=== PATIENT | female | born 1945 | race Asian ===

== ENCOUNTER 2016-05-24 11:48 | Inpatient (IN) | payer OTHER, MEDICARE ==
--- NOTE | ~2016-05-24 | US139 ---
[facility] A Service of [facility] & [facility] RADIOLOGY TEXT RESULTS PATIENT: NEHEMIAH BOWENS LOCATION: [address]- : [birth year] UNIT #: [id number] AGE: [address]: Shon Prather MD SEX: F ORDER DR: [id number] [facility] [address] [place], [place] [address] [id number] MR#: [id number] Acc #: [id number] NAME: NEHEMIAH BOWENS. : 1945 SEX: F STUDY DATE/TIME: 06/05/2016 19:50 UNIT: [facility] ROOM: [facility] STUDY DESCRIPTION: US UE Veins Complete Jeffrey Stdy Attending Physician: Shon Prather Jr., M.D. Ordering Physician: Camilo Stevneson M.D. Primary Care Physician: Jared Johnson D.O. MEDICAL IMAGING REPORT This report is preliminary unless electronic signature is present EXAM Bilateral upper extremity venous Doppler HISTORY 70-year-old female with bilateral upper extremity edema x1 week. FINDINGS 2-D and Doppler evaluation of the upper extremities demonstrates normal flow and compressibility of the major veins in both upper extremities. The visualized cephalic and basilic veins are patent on the left but a portion of the veins cannot be visualized due to bandaging material. A central line is seen within the left internal jugular vein. IMPRESSION No sonographic evidence of DVT or SVT within either upper extremities. Please note a portion of the superficial veins on the left cannot be visualized due to bandaging material. Dictated by... Akin Villarreal M.D. THIS IS AN ELECTRONICALLY VERIFIED REPORT Akin Villarreal M.D. at 06/06/2016 8:43 PM Juan TD: 06/06/2016 10:21 JOB #: [id number] MEDICAL IMAGING REPORT COPY
--- NOTE | ~2016-05-24 | CR72 ---
[facility] A Service of [facility] & [facility] RADIOLOGY TEXT RESULTS PATIENT: NEHEMIAH BOWENS LOCATION: [address] : [birth year] UNIT #: [id number] AGE: [address]: Shon Prather MD SEX: F ORDER DR: [id number] [facility] [address] [place], [place] [address] [id number] I MR#: [id number] Acc #: [id number] NAME: NEHEMIAH BOWENS. : 1945 SEX: F STUDY DATE/TIME: 06/11/2016 2:29 UNIT: [facility] ROOM: [facility] STUDY DESCRIPTION: CR Chest Single View Portable Attending Physician: Shon Prather Jr., M.D. Ordering Physician: Judah Mackenzie Primary Care Physician: Jared Johnson D.O. MEDICAL IMAGING REPORT This report is preliminary unless electronic signature is present EXAM AP portable chest 06/11/2016. HISTORY Respiratory failure. Patient on ventilator. Follow up pulmonary status. TECHNIQUE AP portable chest x-ray. FINDINGS The exam shows no change since yesterday. Persistent dense infiltrate on the left posterior lung base behind the diaphragm. Mid and upper lungs clear. Endotracheal tube and left arm PICC in good position. Heart size normal. IMPRESSION Stable portable chest radiograph, unchanged since yesterday. Dictated by... Bartolo Murcia M.D. THIS IS AN ELECTRONICALLY VERIFIED REPORT Bartolo Murcia M.D. at 06/11/2016 9:43 PM Nura TD: 06/11/2016 12:42 JOB #: [id number] MEDICAL IMAGING REPORT Page 1 of 1 COPY
--- NOTE | ~2016-05-24 | CR72 ---
[facility] A Service of [facility] RADIOLOGY TEXT RESULTS PATIENT: NEHEMIAH BOWENS LOCATION: [place] [address]- : [birth year] UNIT #: [id number] AGE: [address]: Shon Prather MD SEX: F ORDER DR: [id number] [facility] [address] [place], [place] [address] [id number] I MR#: [id number] Acc #: [id number] NAME: NEHEMIAH BOWENS : 1945 SEX: F STUDY DATE/TIME: 05/29/2016 9:12 UNIT: [facility] ROOM: [facility] STUDY DESCRIPTION: CR Chest Single View Portable Attending Physician: Shon Prather Jr., M.D. Ordering Physician: Ed Lisandro Marquez M.D. Primary Care Physician: Jared Johnson D.O. MEDICAL IMAGING REPORT This report is preliminary unless electronic signature is present EXAM Portable chest INDICATIONS 70-year female with central line placement. COMPARISON With earlier today FINDINGS There is a new left IJ central venous catheter with tip in the region of the cavoatrial junction. Stable right IJ dialysis catheter. No pneumothorax. ET tube stable. Stable consolidation or atelectasis medial left base. IMPRESSION New left IJ central venous catheter with tip in the region of the cavoatrial junction. No evidence of pneumothorax. Dictated by... Mike Villarreal M.D. THIS IS AN ELECTRONICALLY VERIFIED REPORT Mike Villarreal M.D. at 05/29/2016 3:34 PM ARS/to TD: 05/29/2016 12:30 JOB #: [id number] MEDICAL IMAGING REPORT COPY
--- NOTE | ~2016-05-24 | CO ---
Unit #: [id number] #: [id number] Patient: NEHEMIAH BOWENS [id number] [address] [place], [place] [address] [id number] I MR#: [id number] NAME: NEHEMIAH BOWENS. ROOM: [facility] Age: 70 Sex: F Admission Date: 05/24/2016 : 1945 Attending Physician: Shon Prather Jr., M.D. Primary Care Physician: Jared Johnson D.O. Consultation Date: 06/17/2016 CONSULTATION REPORT REASON FOR CONSULTATION Antibiotic management in a patient with persistent fever. HISTORY OF PRESENT ILLNESS This is a 70-year-old female who is currently on the ventilator and unable to provide any medical history. The patient originally presented on 05/24/2016 with abdominal pain, found to have a ventral hernia, status post repair with lysis of adhesions. Subsequently, the patient developed some renal failure and had temporary dialysis. She also required a repeat CT scan as she was felt to be coming septic. The patient's CT scan was concerning for perforation. She was also found to have Klebsiella sepsis with pneumonia. The patient, on 05/28, underwent exploratory lap with evacuation of fecal peritonitis, removal of mesh, lysis of adhesions, development of a mucous fistula and a G-tube placement with closure. She went back to the OR on 06/11 for peritoneal cavity washout as well. She remains on the ventilator and she has also been trached since this admission. The patient now has had persistent fever and has remained on the ventilator with some elevated bilirubin and CT scan shows some fluid collection leading for IR to be drained and ID was asked to evaluate for antibiotic management. The patient originally was on Zosyn which collaborated the Klebsiella and has since been changed to Levaquin, Flagyl, Diflucan and IV vancomycin. The patient was recently seen by neurology secondary to hallucinations and mental status changes. She does appear to open her eyes to pain. PAST MEDICAL HISTORY Includes: 1. Colostomy reversal in 2016. 2. Colon perforation in the past. 3. Hypertension. 4. Hyperlipidemia. 5. Diabetes. 6. GERD. 7. Exploratory lap. 8. Colostomy. 9. Vein stripping. 10. Ventral hernia repair. ALLERGIES No known allergies. MEDICATIONS 1. Vancomycin. 2. Levaquin. Unit #: [id number] #: [id number] Patient: NEHEMIAH BOWENS 3. Diflucan. 4. Flagyl. For other medications, please refer to patient's MAR. The patient is not on any pressors. SOCIAL HISTORY The patient lives with others. She has no tobacco abuse or alcohol abuse or IV drug use, per the chart. REVIEW OF SYSTEMS Unable to obtain as patient is currently on the ventilator. PHYSICAL EXAMINATION VITAL SIGNS: Temperature is 101.2, with a T-max of 103.1, pulse is 103, blood pressure is 168/74 and respiratory rate is 16. GENERAL: This is a sedated female on the ventilator. She appears somewhat jaundiced but in no apparent distress. EYES: Pupils are sluggish. CARDIOVASCULAR: S1, S2 with tachycardia. PULMONARY: Diminished in the bases with no wheezes or rhonchi noted, on 40% FIO2. ABDOMEN: Somewhat firm with an abdominal incision with some dark draining fluid from the incision that appears to have some sutures in place. There is a mucous fistula without any drainage. There is a colostomy with goldish-brown stool. There is limited bowel sounds. EXTREMITIES: Trace edema. She has a new IJ line in place. DIAGNOSTIC STUDIES MICROBIOLOGY: 06/16 cath tip is currently pending. 06/16 abdominal fluid culture is pending. LABORATORY: Sputum culture 06/15 shows one yeast present and normal laila. 06/15 blood culture is currently negative. 06/13 blood cultures are negative. 06/09 sputum culture shows Klebsiella sensitive to Levaquin. 06/09 cath tip is negative. 06/06 urine culture is negative. 06/05 blood cultures are negative. 06/05 sputum culture is Klebsiella. 05/28 blood culture is Klebsiella. Surgical path from 05/29 shows perforation with abscess formation. Please see full report for complete details. IMPRESSION This is a 70-year-old female who was originally admitted to the hospital on 05/24/2016 with abdominal pain, status post ventral hernia repair. Since then, the patient has had multiple exploratory procedures secondary Unit #: [id number] #: [id number] Patient: NEHEMIAH BOWENS to fecal peritonitis with mesh removal, lysis of adhesions, development of mucous fistula and washout. The patient now has a CT scan from 06/15 that shows edema and two fluid collections in the mid abdomen concerning for seroma or abscess and IR is currently waiting to drain these. This, coupled with fever and tachycardia, is concerning for infection. However, her white blood cell count is normal at 7.2. Would like to broadly cover patient for abdominal sepsis including Tygacil. Will DC the IV vancomycin, continue the Flagyl, Diflucan and Levaquin. The patient recently had line changed and less concerning for pneumonia or UTI but is covered for her past pneumonia with Levaquin. Will continue to follow Interventional Radiology findings as well as culture results recently of blood and abdominal fluid to help guide antibiotic therapy. Will check a repeat amylase and lipase level and discuss with Dr. Segundo Oliva. This case is continually being followed by the surgery team as well. Thank you for allowing us to participate in the care of this patient. Further recommendations to follow pending patient's clinical course. Dictated by... Brittany Singletary A.P.R.N. for Moisés Mcgarry/yosvany TD: 06/17/2016 09:34 JOB #: [id number] CONSULTATION REPORT Page 1 of 1 X X CONSULTATION REPORT
--- NOTE | ~2016-05-24 | OR ---
Unit #: [id number] #: [id number] Patient: NEHEMIAH BOWENS [id number] [address] [place], [place] [address] [id number] I MR#: [id number] NAME: NEHEMIAH BOWENS ROOM: [facility] Date of Procedure: 05/24/2016 Admission Date: 05/24/2016 Surgeon: Shon Prather Jr., M.D. : 1945 Attending Physician: Shon Prather Jr., M.D. Primary Care Physician: Jared Johnson D.O. OPERATIVE REPORT INDICATION FOR PROCEDURE The patient is a 70-year-old [place] female, who has had multiple surgical procedures, has developed an incarcerated hernia in the left lower quadrant abdominal wall area and was brought in this time for laparoscopic repair of this. The patient also has had a known history for gangrenous cholecystitis, requiring laparoscopic cholecystectomy. The patient understands the procedure including the risks, including that of recurrence, infection, bleeding, intra-abdominal organ injury, and consents. PREOPERATIVE DIAGNOSIS Large incarcerated ventral incisional hernia. POSTOPERATIVE DIAGNOSIS Large incarcerated ventral incisional hernia, noting multiple small bowel loops adhered to the anterior abdominal wall. ANESTHESIA General with endotracheal intubation plus local. PROCEDURE PERFORMED Laparoscopic lysis of adhesions requiring 1.5 hours with laparoscopic ventral hernia repair using a 6 x 8 inch Ventralight mesh covering 2 large defects. As noted above, there were extensive small bowel adhesions. DESCRIPTION OF PROCEDURE The patient was positioned in the supine position. After being anesthetized and intubated, she was prepped and draped in routine fashion for laparoscopic ventral hernia repair. A small 0.5 cm incision was made in the right lateral abdominal wall and a 5-mm Optiview was introduced in the abdomen. The abdomen was then inflated with CO2 gas. A camera was introduced in the abdomen and there was no evidence of any injury related to introduction of the Optiview or the camera. Brief intra-abdominal exploration was carried out. The patient was noted to have dense intra-abdominal adhesions to the anterior abdominal wall including multiple small bowel loops. The omentum was likewise adhesed to the anterior abdominal wall. An 11-mm port was placed in the right lower quadrant abdominal wall area and a 5-mm port was placed in the right lateral abdominal wall area between the two ports. Using Endo Prabha, multiple dense adhesions were then taken down, and once the left side could be seen, a 5-mm port was placed in the left upper and left lower quadrant abdominal wall area. There were extreme adhesions requiring Unit #: [id number] #: [id number] Patient: NEHEMIAH BOWENS meticulous dissection and the small bowel was removed from the anterior abdominal wall without evidence of any obvious injury. Once all the adhesions were lysed and this required at least an hour and a half of lysis. There were two obvious hernia defects, one near the midline and the other to the left in the area where her colostomy had been. A Ventralight mesh was tacked and all 4 corners soaked in antibiotic solution, placed intra-abdominally and using the Endo Close technique was brought up against the anterior abdominal wall covering both defects. It was tacked in place with SecureStraps and after this was performed, hemostasis was checked for in the lower abdomen. Multiple sponges were placed intra-abdominal and brought out with no evidence of any small bowel contents. The area was observed for approximately 10 minutes and after noting no significant bleeding and no evidence of any bowel leaks, the CO2 was expressed from the abdomen. The fascia in the larger port site was closed using the neoClose technique. After the CO2 was expressed from the abdomen, the ports were removed. There was no evidence of any bleeding from the port sites. The port sites were all injected with 0.5% Marcaine with epinephrine locally. The skin edges were then approximated with stainless-steel skin clips and skin stapling device. Sterile dressings were applied externally. Estimated blood loss approximately 250 mL. There were no drains used. No complications. The patient was taken to the recovery room with stable vital signs in satisfactory condition. Dictated by... Shon Prather Jr., M.D. JMB/hernandez TD: 06/14/2016 02:43 JOB #: [id number] OPERATIVE REPORT Page 1 of 1 X Shon Prather MD X PROCEDURE OPERATIVE NOTE
--- NOTE | ~2016-05-24 | CO ---
Unit #: [id number] #: [id number] Patient: NEHEMIAH BOWENS [id number] [address] [place], [place] [address] [id number] MR#: [id number] NAME: ENHEMIAH BOWENS. ROOM: [facility] Age: 70 Sex: F Admission Date: 05/24/2016 : 1945 Attending Physician: Shon Prather Jr., M.D. Primary Care Physician: Jared Johnson D.O. Consultation Date: 06/07/2016 CONSULTATION REPORT PRIMARY CARE PHYSICIAN Jared Johnson D.O. REASON FOR CONSULTATION Hyperbilirubinemia. HISTORY OF PRESENT ILLNESS Ms. Bowens is a very pleasant 70-year-old female of Italian origin. The patient has been admitted after a ventral hernia surgery and subsequently found to have a small bowel leak and had further surgery that involved placement of ileostomy, mucous fistula, and an open surgical wound following exploratory laparotomy and peritoneal lavage. She is currently on the ventilator and during her hospitalization over the past week, her bilirubin has gradually increased and current bilirubin is 6.4. The patient is on ventilator. She is also on TPN and IV antibiotics. PAST MEDICAL HISTORY Significant for history of hypertension, diabetes, and history of gastroesophageal reflux. PAST SURGICAL HISTORY Included exploratory laparotomy and diversion colostomy followed by reversal and recent ventral hernia surgery. SOCIAL HISTORY She lives with her [id number], and never smoked or drink alcohol. HOME MEDICATIONS Included lisinopril, Nexium, Levsin, fish oil, Centrum Silver, famotidine, Glucophage, metoprolol, amlodipine, and fenofibrate. ALLERGIES She has no known drug allergies. REVIEW OF SYSTEMS Detailed review of systems is not possible as the patient is currently intubated on the ventilator. PHYSICAL EXAMINATION GENERAL: On examination, she is intubated, sedated, and on the ventilator. VITAL SIGNS: Indicate a temperature of 102.2, heart rate is 93 per minute and regular, respiratory rate is 18, and blood pressure is 118/65. HEENT: She has mild pallor. There being no icterus, lymphadenopathy, or Unit #: [id number] #: [id number] Patient: NEHEMIAH BOWENS peripheral edema. CARDIOVASCULAR: Normal heart sounds. No murmurs on auscultation. LUNGS: Reveal normal breath sounds. Good air entry. ABDOMEN: Distended and the patient has a stoma, a mucous fistula, and surgical wound. DIAGNOSTIC STUDIES LABORATORY RESULTS: Shows a white count of 8.2, hemoglobin is 9, and platelet count is 322. Her BUN and creatinine are 31 and 0.8 and albumin is 1.9. Total bilirubin is 6.1. ALT is normal and AST is 46. Alkaline phosphatase is 212. Lipase is 264. Prealbumin is 7.3. CLINICAL IMPRESSION 1. The most likely etiology of the patient's hyperbilirubinemia is postoperative jaundice with a combination of sepsis, blood transfusions, and TPN. No specific intervention is indicated and it does not suggest that the patient has a biliary disease. Incidentally, she is status post cholecystectomy. If however, there is rising bilirubin, one may entertain bedside ultrasound of the upper abdomen right upper quadrant to look for any biliary ductal dilation; although, I seriously doubt that this would be dealing with a biliary etiology. 2. Underlying sepsis and postoperative course. 3. Acute respiratory failure, on ventilator. The above issues were discussed with patient's family including her sister and wlmmblh-zv-nwf in her room at bedside. Thank you very much for asking me to see this very pleasant patient and I appreciate the consult. Dictated by... Moisés Mayers/hernandez TD: 06/10/2016 11:22 JOB #: [id number] CC: . CONSULTATION REPORT Page 1 of 1 X Dat Vizcarra MD CONSULTATION REPORT
--- NOTE | ~2016-05-24 | CT57 ---
[facility] A Service of [facility] / [facility] RADIOLOGY TEXT RESULTS PATIENT: NEHEMIAH BOWENS LOCATION: [address]- : [birth year] UNIT #: [id number] AGE: [address]: Shon Prather MD SEX: F ORDER DR: [id number] [place] [id number] [facility]. [place], [place] [address] [id number] I MR#: [id number] Acc #: [id number] NAME: NEHEMIAH BOWENS. : 1945 SEX: F STUDY DATE/TIME: 06/08/2016 16:03 UNIT: [facility] ROOM: [facility] STUDY DESCRIPTION: CT Chest Wo Cont Attending Physician: Shon Prather Jr., M.D. Ordering Physician: Reese Estrella M.D. Primary Care Physician: Jared Johnson D.O. MEDICAL IMAGING REPORT This report is preliminary unless electronic signature is present EXAM CT chest without contrast, 06/08/2016 HISTORY Fever, confusion and respiratory failure today. Postop small bowel surgery 11 days ago. TECHNIQUE This CT exam was performed with one or more of the following radiation dose reduction techniques: automatic exposure control, adjustment of mA and/or kV according to patient size, and iterative reconstruction. FINDINGS CT chest without contrast demonstrates minimal bilateral pleural effusions. Moderately extensive atelectasis in the posterior and inferior left lower lobe and gwvt-dv-wvtezpph atelectasis in the posterior and inferior right lower lobe. Mild subsegmental atelectasis or infiltrate in the inferior right upper lobe and in the lingula. No adenopathy. No pericardial thickening or effusion. IMPRESSION 1. Moderately extensive atelectasis in the posterior and inferior left lower lobe and nrkv-zy-byrfddwl atelectasis in the posterior and inferior right lower lobe. 2. There is also patchy subsegmental infiltrate or atelectasis in the inferior right upper lobe. 3. Very small bilateral pleural effusions. Dictated by... John Lo M.D. [facility] A Service of [facility] / [facility] RADIOLOGY TEXT RESULTS PATIENT: NEHEMIAH BOWENS LOCATION: [address] : [birth year] UNIT #: [id number] AGE: [address]: Shon Prather MD SEX: F ORDER DR: THIS IS AN ELECTRONICALLY VERIFIED REPORT John Lo M.D. at 06/10/2016 12:24 PM FARHAN/tani TD: 06/09/2016 23:00 JOB #: [id number] MEDICAL IMAGING REPORT COPY
--- NOTE | ~2016-05-24 | CR72 ---
[facility] A Service of [facility] RADIOLOGY TEXT RESULTS PATIENT: NEHEMIAH BOWENS LOCATION: [place] [address]- : [birth year] UNIT #: [id number] AGE: [address]: Shon Prather MD SEX: F ORDER DR: [id number] [facility] [address] [place], [place] [address] [id number] I MR#: [id number] Acc #: [id number] NAME: NEHEMIAH BOWENS : 1945 SEX: F STUDY DATE/TIME: 06/14/2016 5:02 UNIT: [facility] ROOM: [facility] STUDY DESCRIPTION: CR Chest Single View Portable Attending Physician: Shon Prather Jr., M.D. Ordering Physician: Emiliana Finch M.D. Primary Care Physician: Jared Johnson D.O. MEDICAL IMAGING REPORT This report is preliminary unless electronic signature is present EXAM AP portable chest 06/14/2016 HISTORY Respiratory failure. Follow up pulmonary status. TECHNIQUE AP portable chest x-ray. FINDINGS The exam shows no change since yesterday. Persistent dense airspace infiltrate and volume loss in the left lower lobe and tiny left pleural effusion. Mid and upper lungs clear. Tracheostomy tube and left arm PICC remain in good position. IMPRESSION Stable portable chest radiograph, unchanged since yesterday. Dictated by... Bartolo Murcia M.D. THIS IS AN ELECTRONICALLY VERIFIED REPORT Bartolo Murcia M.D. at 06/18/2016 5:01 PM ELMA/ashok TD: 06/14/2016 08:47 JOB #: [id number] MEDICAL IMAGING REPORT Page 1 of 1 COPY
--- NOTE | ~2016-05-24 | CR72 ---
[facility] A Service of [facility] & [facility] RADIOLOGY TEXT RESULTS PATIENT: NEHEMIAH BOWENS LOCATION: [address] : [birth year] UNIT #: [id number] AGE: [address]: Shon Prather MD SEX: F ORDER DR: [id number] [place] [id number] [facility]. [place], [place] [address] [id number] I MR#: [id number] Acc #: [id number] NAME: NEHEMIAH BOWENS. : 1945 SEX: F STUDY DATE/TIME: 06/29/2016 4:36 UNIT: [facility] ROOM: [facility] STUDY DESCRIPTION: CR Chest Single View Portable Attending Physician: Shon Prather Jr., M.D. Ordering Physician: Eliu Mackenzie M.D. Primary Care Physician: Jared Johnson D.O. MEDICAL IMAGING REPORT This report is preliminary unless electronic signature is present EXAM Single view of the chest dated 06/29/2016 at 0436 hours. COMPARISON Single view of the chest dated 06/23/2016 at 0227 hours. HISTORY Fever, pneumonia since 05/24/2016 (35 days). Patient has had exploratory laparotomy on 05/28/2016. FINDINGS Frontal view of the chest was obtained. Stable tracheostomy tube and left subclavian approach PICC line catheter with the tip in the SVC. No significant interval change in the cardiopulmonary findings without any significant abnormality. Minimal prominence of the interstitial markings are noted in the lungs bilaterally and the retrocardiac left lower lobe appears to be better seen on the current study than the prior study due to difference in technique. IMPRESSION No significant interval worsening. Stable positioning of the tube and line. Dictated by... Dejuan Myers M.D. THIS IS AN ELECTRONICALLY VERIFIED REPORT Dejuan Myers M.D. at 07/01/2016 1:46 PM CPR/pc TD: 06/29/2016 12:30 JOB #: [id number] [facility] A Service of [facility] & [facility] RADIOLOGY TEXT RESULTS PATIENT: NEHEMIAH BOWENS LOCATION: [address] : [birth year] UNIT #: [id number] AGE: [address]: Shon Prather MD SEX: F ORDER DR: MEDICAL IMAGING REPORT Page 1 of 1 COPY
--- NOTE | ~2016-05-24 | CR72 ---
[facility] A Service of [facility] & [facility] RADIOLOGY TEXT RESULTS PATIENT: NEHEMIAH BOWENS LOCATION: [address] : [birth year] UNIT #: [id number] AGE: [address]: Shon Prather MD SEX: F ORDER DR: [id number] [place] [id number] [facility]. [place], [place] [address] [id number] I MR#: [id number] Acc #: [id number] NAME: NEHEMIAH BOWENS : 1945 SEX: F STUDY DATE/TIME: 06/10/2016 6:09 UNIT: [facility] ROOM: [facility] STUDY DESCRIPTION: CR Chest Single View Portable Attending Physician: Shon Prather Jr., M.D. Ordering Physician: Reese Estrella M.D. Primary Care Physician: Jared Johnson D.O. MEDICAL IMAGING REPORT This report is preliminary unless electronic signature is present EXAM Frontal chest, 06/10/2016 INDICATION 70-year-old female on the ventilator. Respiratory failure. Symptoms began 05/24/2016. Diabetes, hypertension. Exploratory laparotomy performed 05/28/2016. (Perforated ileum). TECHNIQUE Frontal chest COMPARISON 06/09/2016 FINDINGS ET tube tip in good position above the miguel a. A left-sided PICC line has been placed and the tip extends to the distal SVC level. Left-sided central line seen previously has been removed. Cardiac silhouette is stable. Vascularity unremarkable. Lung volumes are low and there are trace effusions bilaterally with bibasilar atelectasis or faint infiltrates. No pneumothorax. IMPRESSION 1. New left-sided PICC line with its tip at the distal SVC level. No pneumothorax. 2. Trace to small effusions with bibasilar atelectasis or infiltrates. Dictated by... Ken Brown M.D. THIS IS AN ELECTRONICALLY VERIFIED REPORT Ken Brown M.D. at 06/10/2016 2:31 PM SANDRA/chucho [facility] A Service of [facility] RADIOLOGY TEXT RESULTS PATIENT: NEHEMIAH BOWENS LOCATION: [address] : [birth year] UNIT #: [id number] AGE: [address]: Shon Prather MD SEX: F ORDER DR: TD: 06/10/2016 12:32 JOB #: [id number] MEDICAL IMAGING REPORT COPY
--- NOTE | ~2016-05-24 | CR72 ---
[facility] A Service of [facility] RADIOLOGY TEXT RESULTS PATIENT: NEHEMIAH BOWENS LOCATION: [address] : [birth year] UNIT #: [id number] AGE: [address]: Shon Prather MD SEX: F ORDER DR: [id number] [facility] [address] [facility]. [place], [place] [address] [id number] I MR#: [id number] Acc #: [id number] NAME: NEHEMIAH BOWENS : 1945 SEX: F STUDY DATE/TIME: 06/08/2016 3:50 UNIT: [facility] ROOM: [facility] STUDY DESCRIPTION: CR Chest Single View Portable Attending Physician: Shon Prather Jr., M.D. Ordering Physician: Eliu Mackenzie M.D. Primary Care Physician: Jared Johnson D.O. MEDICAL IMAGING REPORT This report is preliminary unless electronic signature is present EXAM AP portable chest 06/08/2016. HISTORY Respiratory failure. Patient on ventilator. Follow up cardiopulmonary status. TECHNIQUE AP portable chest x-ray. FINDINGS The examination shows persistent dense airspace consolidation in the left lower lobe behind the heart and mild right basilar infiltrate. Mid and upper lungs remain clear. Heart size normal. Endotracheal tube and left IJ central line remain in good position. No significant change since yesterday. IMPRESSION 1. Stable portable chest radiograph, unchanged since yesterday. 2. Persistent dense lung base consolidation. 3. Support devices in good position. Dictated by... Bartolo Murcia M.D. THIS IS AN ELECTRONICALLY VERIFIED REPORT Bartolo Murcia M.D. at 06/09/2016 5:30 AM ALEKSANDARW/yuval TD: 06/09/2016 02:46 JOB #: [id number] MEDICAL IMAGING REPORT [facility] A Service of [facility] RADIOLOGY TEXT RESULTS PATIENT: NEHEMIAH BOWENS LOCATION: [address] : [birth year] UNIT #: [id number] AGE: [address]: Shon Prather MD SEX: F ORDER DR: KATINA
--- NOTE | ~2016-05-24 | CR72 ---
[facility] A Service of [facility] & [facility] RADIOLOGY TEXT RESULTS PATIENT: NEHEMIAH BOWENS LOCATION: [address]- : [birth year] UNIT #: [id number] AGE: [address]: Shon Prather MD SEX: F ORDER DR: [id number] [facility] [address] [facility]. [place], [place] [address] [id number] I MR#: [id number] Acc #: [id number] NAME: NEHEMIAH BOWENS. : 1945 SEX: F STUDY DATE/TIME: 06/07/2016 5:28 UNIT: [facility] ROOM: [facility] STUDY DESCRIPTION: CR Chest Single View Portable Attending Physician: Shon Prather Jr., M.D. Ordering Physician: Eliu Mackenzie M.D. Primary Care Physician: Jared Johnson D.O. MEDICAL IMAGING REPORT This report is preliminary unless electronic signature is present EXAM AP portable chest 06/07/2016 at 05:28 HISTORY Ventral hernia. Shortness of breath. Respiratory failure. COMPARISON AP portable chest 06/06/2016. FINDINGS Low-volume inspiration. Left basilar atelectasis or pneumonia unchanged with probable trace left pleural effusion. Minimal right basilar atelectasis. ET tube, left IJ central line appear stable. No visible pneumothorax. IMPRESSION Persistent dense left basilar atelectasis or consolidation in a retrocardiac distribution with trace left pleural effusion. Minimal right basilar atelectasis. No significant change from 06/06/2016. Dictated by... Angela Moyer M.D. THIS IS AN ELECTRONICALLY VERIFIED REPORT Angela Moyer M.D. at 06/11/2016 8:38 AM LL/fabio TD: 06/07/2016 11:03 JOB #: [id number] MEDICAL IMAGING REPORT Page 1 of 1 COPY
--- NOTE | ~2016-05-24 | CR72 ---
[facility] A Service of [facility] & [facility] RADIOLOGY TEXT RESULTS PATIENT: NEHEMIAH BOWENS LOCATION: [place] [address]22 : [birth year] UNIT #: [id number] AGE: [address]: Shon Prather MD SEX: F ORDER DR: [id number] [facility] [address] [facility]. [place], [place] [address] [id number] I MR#: [id number] Acc #: [id number] NAME: NEHEMIAH BOWENS. : 1945 SEX: F STUDY DATE/TIME: 05/30/2016 05:12 UNIT: [facility] ROOM: [facility] STUDY DESCRIPTION: CR Chest Single View Portable Attending Physician: Shon Prather Jr., M.D. Ordering Physician: Eliu Mackenzie M.D. Primary Care Physician: Jared Johnson D.O. MEDICAL IMAGING REPORT This report is preliminary unless electronic signature is present EXAM Portable chest, 05/30 at 05:12 INDICATION Shortness of air. Endotracheal tube. FINDINGS AP portable chest is compared with 05/29/2016. ET tube and central venous catheters are unchanged. Heart size stable. There is persistent infiltrate or atelectasis in the bases and there is a small left effusion. No pneumothorax. Dictated by... Jared Paiz Jr., M.D. THIS IS AN ELECTRONICALLY VERIFIED REPORT Jared Paiz Jr., M.D. at 05/30/2016 10:03 PM MELONY/chucho TD: 05/30/2016 08:36 JOB #: [id number] MEDICAL IMAGING REPORT COPY
--- NOTE | ~2016-05-24 | CT71 ---
[facility] A Service of [facility] RADIOLOGY TEXT RESULTS PATIENT: NEHEMIAH BOWENS LOCATION: [facility] : [birth year] UNIT #: [id number] AGE: [address]: Shon Prather MD SEX: F ORDER DR: [id number] [facility] [address] [facility]. [place], [place] [address] [id number] I MR#: [id number] Acc #: [id number] NAME: NEHEMIAH BOWENS. : 1945 SEX: F STUDY DATE/TIME: 06/08/2016 16:00 UNIT: [facility] ROOM: [facility] STUDY DESCRIPTION: CT Head Wo Contrast Attending Physician: Shon Prather Jr., M.D. Ordering Physician: Reese Estrella M.D. Primary Care Physician: Jared Johnson D.O. MEDICAL IMAGING REPORT This report is preliminary unless electronic signature is present EXAM Head CT without HISTORY Fever, confusion post-ventral hernia repair. Small bowel leak, 05/28/2016, respiratory failure on a ventilator. TECHNIQUE This CT exam was performed with one or more of the following radiation dose reduction techniques: automatic exposure control, adjustment of mA and/or kV according to patient size, and iterative reconstruction. COMMENT Routine noncontrasted head CT is reviewed. COMPARISON None. FINDINGS The is no displaced calvarial fracture. Small amount of fluid or inflammatory change in the mastoid tips. Mild mucosal disease in the paranasal sinuses. No sinus air fluid level. Atherosclerotic vascular calcifications at the base of the brain. Generalized atrophy. No extraaxial fluid collection. No evidence for acute intracranial hemorrhage. Mild periventricular white matter low attenuation is nonspecific, probably due to small vessel disease. No acute cortical infarct is suspected but if this is the clinical concern, followup imaging is recommended. No intracranial mass effect. IMPRESSION 1. No acute intracranial abnormality is suspected but if there is [facility] A Service of [facility] RADIOLOGY TEXT RESULTS PATIENT: NEHEMIAH BOWENS LOCATION: [facility] : [birth year] UNIT #: [id number] AGE: [address]: Shon Prather MD SEX: F ORDER DR: clinical concern for acute CVA, followup imaging would be indicated preferably with an MRI. 2. Atrophy and mild probably small vessel disease, atherosclerotic vascular calcifications. Dictated by... Lourdes Meehan M.D. THIS IS AN ELECTRONICALLY VERIFIED REPORT Lourdes Meehan M.D. at 06/10/2016 7:44 AM JACE/avril TD: 06/09/2016 19:04 JOB #: [id number] MEDICAL IMAGING REPORT COPY
--- NOTE | ~2016-05-24 | CT4 ---
[facility] A Service of [facility] & [facility] RADIOLOGY TEXT RESULTS PATIENT: NEHEMIAH BOWENS LOCATION: [address] : [birth year] UNIT #: [id number] AGE: [address]: Shon Prather MD SEX: F ORDER DR: [id number] [place] [id number] [facility]. [place], [place] [address] [id number] I MR#: [id number] Acc #: [id number] NAME: NEHEMIAH BOWENS. : 1945 SEX: F STUDY DATE/TIME: 05/28/2016 13:56 UNIT: [facility] ROOM: [facility] STUDY DESCRIPTION: CT Abd and Pelv Wo Cont Attending Physician: Shon Prather Jr., M.D. Ordering Physician: Jared Gordon M.D. Primary Care Physician: Jared Johnson D.O. MEDICAL IMAGING REPORT This report is preliminary unless electronic signature is present ADDENDUM After interpretation of this exam the study was reviewed with Dr. Srikanth Prather by Dr. Anthony Bah and Dr. Ken Brown. It is determined that the collections in the anterior abdominal wall as measured in my report most likely represent extraluminal contrast rather than true herniated bowel. The patient was subsequently taken to the operating room following that conference with Dr. Prather. The presence of extraluminal contrast was confirmed intraoperatively. STAT * RESULT JOB #: [id number] Dictated by... Sarah Peterson M.D. THIS IS AN ELECTRONICALLY VERIFIED REPORT Sraah Peterson M.D. at 05/31/2016 8:58 AM Natty TD: 05/30/2016 13:24 JOB #: [id number] MEDICAL IMAGING REPORT COPY
--- NOTE | ~2016-05-24 | FU ---
[facility] Nutrition Therapy DATE: 06/28/16 Patient: NEHEMIAH Carmichael GOGO Physician: BREEZY Address: [address] [place] [address] Room/Bed: [address], Zip: [place] [address] Admit Date: 05/24/16 Date of : [birth year] Height: 5 0 Weight: 128 58.5 NUTRITION MONITORING/FOLLOW-UP: Reason: Enteral nutrition follow up Admitting Dx: 70 y/o female admitted with ED, bowel sx x 2, s/p ventral hernia repair Anthropometrics: Ht: 60", admission wt: 59.1 kg, current wt: 58.5 kg (stable), BMI: 25.4 Labs: Glucose 127, no POC measured, AST 48, Prealbumin 16.6 (4/3), Alk phos 223 (trending up) Meds: Phenergan, Pepcid, MgSO4, KCL I&O's: 1893/3163, last BM 06/28 (diarrhea per ileostomy) Skin: Puncture procedure site and g-tube L abdomen, scattered abrasions and bruises abdomen, scattered bruises BUE, trace-generalized edema noted Estimated Nutrition Needs: 1846-7771 kcals per day (25-30 kcals/kg admission wt) 88-118 g protein per day (1.5-2.0 g/kg admission wt) Fluids consistent with kcal needs or per MD Assessment: Chart reviewed, events noted. Patient remains intubated with trach/PEG, plan is for transfer to [place] once blood cultures are checked. Patient remains on enteral feeds with Vital 1.5 @ goal rate of 45 ml/hr providing 103% goal volume x 24 hours per pump history. She is also receiving Prostat BID and Merrill BID through PEG to meet increased nutrient needs related to wound healing (RN confirmed). Weight has been stable. Previous nutrition goals met, nutrition dx remains. See RD recs. Dx: Increased nutrient needs r/t increased metabolic demand/wound healing requirements AEB recent abdominal surgery, delayed wound healing - ACTIVE, IMPROVING Intervention: Continue EN regimen but decrease Prostat to once daily Monitoring, Evaluation and Goals: MET 1. EN to provide > 80% goal volume x 24 hours. 2. Maintain current weight status. 3. Promote regular GI function. 4. Labs WNL. 5. Promote wound healing. [facility] Nutrition Therapy DATE: 06/28/16 Patient: NEHEMIAH Carmichael GOGO Physician: BREEZY Address: [address] [place] [address] Room/Bed: [address], Zip: [place] [address] Admit Date: 05/24/16 Date of : [birth year] Height: 5 0 Weight: 128 58.5 Monitor: Per protocol, criteria to determine if above goals met Recommendations: 1. Continue current enteral regimen via PEG: Vital 1.5 @ goal rate of 45 ml/hr. DECREASE Prostat to once daily to see if this helps with patient's diarrhea. Continue 1 packet Merrill BID to help promote wound healing. This regimen will provide 1720 kcals, 88 g protein and 821 ml water. Free water flushes per MD. 2. Wound care prn. 3. Please weigh q 3 days for monitoring purposes. Status: Moderate nutrition risk Respectfully, Padmini Herrera RD, LD [facility] cc: client file
--- NOTE | ~2016-05-24 | FU ---
[facility] Nutrition Therapy DATE: 06/03/16 Patient: NEHEMIAH BOWENS Physician: BREEZY Address: [address] [place] [address] Room/Bed: [address], Zip: [place] [id number] Admit Date: 05/24/16 Date of : [birth year] Height: 5 0 Weight: 167 76 NUTRITION MONITORING/FOLLOW-UP: Reason: TPN FOLLOW UP Anthropometrics: HT: 5'0" Adm wt: 59.1 kg BMI: 25.4 Wt 06/03: 76 kg Labs: Gluc 148 BUN 24 Ca++ 7.4 Alb 1.0 AST 66 Phos 4.7 Accuchecks 173 Prealb 7.3 Trig (from 06/01): 384 Please note, RD unsure whether or not Propofol was turned off to obtain an accurate triglyceride level; therefore, this level may be inaccurate. Meds: Propofol @ 21.8, TPN @ 80 mL/hr + MVI/minerals, MgSO4, KCl, pepcid, D5%, phenergan, levophed, novolog I&O's: 9909/8212, last BM 05/31, PEG to gravity (655 mL output), ostomy, mucous fistula Skin: Reviewed, no changes since previous assessment Edema: Abdomen- distended BUE 1+ BLE trace BL hands 2-3+ Scleroedema- generalized Estimated Nutrition Needs: 1993-5897 kcals (25-30 kcals/kg) 88-106 grams protein (1.5-1.8 grams/kg) Assessment: Chart reviewed, events noted. Pt remains intubated and sedated in the ICU. Propofol is providing an additional 576 kcals from lipids at this time. Pt is receiving TPN (15% dextrose) @ 80 mL/hr, which is the recommended goal rate. Propofol rate was increased, and is therefore providing additional kcals since the previous assessment. Phos level elevated at this time as noted above. Please see recommendations below. Previous nutrition diagnosis resolved, see new diagnosis. Dx: Inadequate protein-energy intake RT clinical condition AEB intubated, TPN ordered, NPO status.- RESOLVED Increased protein needs RT recent surgery, abdominal incision/ wound AEB open abdominal incision/ wound, delayed healing. [facility] Nutrition Therapy DATE: 06/03/16 Patient: NEHEMIAH Carmichael GOGO Physician: BREEZY Address: [address] [place] [address] Room/Bed: [address], Zip: [place] [id number] Admit Date: 05/24/16 Date of : [birth year] Height: 5 0 Weight: 167 76 Intervention: 1. TPN Monitoring, Evaluation and Goals: IN PROGRESS/ NOT MET 1. Nutrition/ TPN; provide >80% estimated nutrient needs 2. Labs; WNL: electrolytes, trigylcerides, glucose, BUN 3. Weight; preserve lean body mass, prevent weight loss 4. Skin; promote healing 5. GI; promote regular GI function Recommendations: 1. Continue the current TPN (15% dextrose) @ 80 mL/hr. 2. Once medically feasible when propofol can be turned off, recommend obtaining an accurate triglyceride level. 3. Continue to monitor electrolytes, glucose, and fluid status. 4. Once medically feasible when PEG can be used, the pt would benefit from Merrill BID to promote wound healing. 5. Once the pt is extubated, start clear liquids (as tolerated) if the pt passes an GARAGE ATTENDANT evaluation (as deemed appropriate per surgical team). Status: Pt is at moderate-severe nutritional risk. RD will continue to follow. Respectfully, JEROME ORTEGA RD, LD Food and Nutritional Services [facility] cc: client file
--- NOTE | ~2016-05-24 | CR72 ---
[facility] A Service of [facility] RADIOLOGY TEXT RESULTS PATIENT: NEHEMIAH BOWENS LOCATION: [address] : [birth year] UNIT #: [id number] AGE: [address]: Shon Prather MD SEX: F ORDER DR: [id number] [place] [id number] [facility]. [place], [place] [address] [id number] I MR#: [id number] Acc #: [id number] NAME: NEHEMIAH BOWENS. : 1945 SEX: F STUDY DATE/TIME: 06/12/2016 3:27 UNIT: [facility] ROOM: [facility] STUDY DESCRIPTION: CR Chest Single View Portable Attending Physician: Shon Prather Jr., M.D. Ordering Physician: Halle Woodson M.D. Primary Care Physician: Jared Johnson D.O. MEDICAL IMAGING REPORT This report is preliminary unless electronic signature is present EXAM AP portable chest 06/12/2016. HISTORY Respiratory failure. Patient on ventilator. Follow up cardiopulmonary status. TECHNIQUE AP portable chest x-ray. FINDINGS Since yesterday, endotracheal tube has been exchanged for a well-positioned tracheostomy tube. Exam is otherwise unchanged. There is persistent dense airspace consolidation and/or volume loss in the left lower lobe. Mid and upper lungs remain clear. Heart size normal. PICC in good position. No pneumothorax or pneumomediastinum following tracheostomy tube placement. IMPRESSION Stable portable chest radiograph, unchanged since yesterday following tracheostomy tube placement. No pneumothorax. Dictated by... Bartolo Murcia M.D. THIS IS AN ELECTRONICALLY VERIFIED REPORT Bartolo Murcia M.D. at 06/12/2016 10:06 PM ELMA/reji TD: 06/12/2016 13:25 JOB #: [id number] MEDICAL IMAGING REPORT [facility] A Service of [facility] RADIOLOGY TEXT RESULTS PATIENT: NEHEMIAH BOWENS [address] : [birth year] UNIT #: [id number] AGE: [address]: Shon Prather MD SEX: F ORDER DR: Page 1 of 1 COPY
--- NOTE | ~2016-05-24 | FU ---
[facility] Nutrition Therapy DATE: 05/31/16 Patient: NEHEMIAH BOWENS Physician: BREEZY Address: [address] [place] [address] Room/Bed: [address], Zip: [place] [address] Admit Date: 05/24/16 Date of : 45 Height: 5 0 Weight: 177 80.5 NUTRITION MONITORING/FOLLOW-UP: Reason: TPN FOLLOW UP Anthropometrics: Ht: 5'0" Adm wt: 59.1 kg BMI: 25.4 Wt 05/31: 80.[address] obtained admission weight from the pt's family. Please note, 80.5 kg is bedscale weight and may not be accurate. Edema also noted. Labs: Na+ 132 K+ 2.7 Gluc 177 Ca++ 6.4 Alb 1.1 Phos 1.7 Accuchecks 148-197 Meds: Propofol @ 17.1 mL/hr, TPN @ 40 mL/hr, MgS04, KCl, pepcid, Intralipid 20%, phenergan, D%, levophed, novolog I&O's: 6172/3555, last BM 05/24, PEG to gravity suction, ostomy, mucous fistula Skin/edema: no changes since previous assessment Estimated Nutrition Needs: 9747-6527 kcals (25-30 kcals/kg) 88-106 grams protein (1.5-1.8 grams/kg) Assessment: Chart reviewed, events noted. Pt remains intubated and sedated in the ICU. Propofol is providing an additional 451 kcals from lipids at this time. Pt is receiving TPN (25% dextrose) @ 40 mL/hr with lipids cycling every other day. ADORE spoke with MD and recommended to change TPN from 25% to 15% to provide additional protein without exceeding the pt's calorie needs. MD agreed, and ordered TPN 15% dextrose @ 80 mL/hr and discontinued lipids, as the pt is already receiving lipids from propofol. Pt's electrolytes are low (Phos, K+, Na+), which are being repleted. Please see recommendations below. Goal rate has changed slightly due to increase in kcals received from propofol. Nutrition diagnosis in progress. Dx: Inadequate protein-energy intake RT clinical condition AEB intubated, TPN ordered, NPO status. Intervention: 1. TPN Monitoring, Evaluation and Goals: GOALS IN PROGRESS 1. Nutrition/TPN; provide >80% estimated needs 2. Labs; WNL: electrolytes, glucose, trigylercides [facility] Nutrition Therapy DATE: 05/31/16 Patient: NEHEMIAH BOWENS Physician: BREEZY Address: [address] [place] [address] Room/Bed: [address], Zip: [place] [address] Admit Date: 05/24/16 Date of : 45 Height: 5 0 Weight: 177 80.5 3. Weight; preserve lean body mass, prevent unintentional weight loss 4. Skin; promote healing 5. GI; promote wound healing Recommendations: 1. Please obtain a triglyceride level, as the pt is receiving propofol and TPN and one has not been obtained. 2. Recommend TPN 15% dextrose solution to gradually increase to goal rate of 80 mL/hr to provide: 979 kcals dextrose 1363 kcals + 451 kcals from propofol= total 1814 kcals 96 grams protein GUR= 3.4 3. Discontinue cycling lipids at this time, as the pt is receiving a significant amount of lipids/kcals from propofol. RD discussed this with . 4. Monitor electrolytes, glucose levels, and fluid status closely. 5. Once the pt is extubated, start clear liquids (as tolerated) if the pt passes an OPERATIONAL ASSISTANT evaluation (as deemed appropriate per surgical team). Status: Pt is at moderate-severe nutritional risk. Respectfully, JEROME ORTEGA RD, LD Food and Nutritional Services [facility] cc: client file
--- NOTE | ~2016-05-24 | FU ---
[facility] Nutrition Therapy DATE: 06/05/16 Patient: NEHEMIAH BOWENS Physician: BREEZY Address: [address] [place] [address] Room/Bed: [address], Zip: [place] [address] Admit Date: 05/24/16 Date of : 45 Height: 5 0 Weight: 156 71 NUTRITION MONITORING/FOLLOW-UP: Reason: TPN follow up/ Consult to assess for enteral nutrition Anthropometrics: Ht: 5'0" Adm wt: 59.1 kg BMI: 25.4 Wt 06/05: 71 kg Labs: Na+ 134 Gluc 147 BUN 36 Alb 2.6 AST 62 Meds: TPN @ 80 mL/hr, pepcid, MgSO4, KCl, phenergan, levophed, novolog, D5% I&O's: 3278/3230, last BM 06/05, bowel sounds positive in all 4 quadrants Skin: Open surgical wounds to abodmen remains Edema: 2+ BL hands 1+ pedal Generalized to hips/ abdomen/ trunk/ pelvic area Scleredema Estimated Nutrition Needs: 3821-6043 kcals (25-30 kcals/kg) 88-118 grams protein (1.5-2.0 grams/kg) Assessment: Chart reviewed, events noted. Pt remains intubated in the ICU, and failed a wean trial. Pt is no longer receiving propofol. Pt is receiving TPN @ 80 mL/hr without any lipids cycling at this time. Per RN report, pt is going for a HIDA scan today. MD consulted RD to assess the pt for enteral nutrition, but not to start it yet. Awaiting GI function per MD note. Questionable TPN induced hepatitis noted in chart. Decreased G-tube output also noted. Please see recommendations below. Nutrition diagnosis remains active. Dx: Increased protein needs RT recent surgery, abdominal incision/ wound AEB open abdominal incision/ wound, delayed healing.- ACTIVE Intervention: 1. TPN 2. Enteral nutrition once medically feasible Monitoring, Evaluation and Goals: 1. Nutrition/ TPN; provide >80% estimated nutrient needs 2. Labs; WNL: electrolytes, trigylcerides, glucose, BUN, AST [facility] Nutrition Therapy DATE: 06/05/16 Patient: NEHEMIAH BOWENS Physician: BREEZY Address: [address] [facility] Room/Bed: [address], Zip: [place] [address] Admit Date: 05/24/16 Date of : 45 Height: 5 0 Weight: 156 71 3. Weight; preserve lean body mass, prevent weight loss 4. Skin; promote healing 5. GI; promote regular GI function Recommendations: 1. Continue TPN (15% dextrose) @ 80 mL/hr per MD orders. 2. Obtain a current triglyceride level, as the previous one was obtained while Propofol was being administered. If trigylcerides are WNL, recommend cycling lipids q 48 hrs to prevent fatty acid deficiency. 3. Once medically feasible when ordered per MD, recommend initiating enteral nutrition with Vital 1.5 @ 15 mL/hr + 30 mL Prostat BID. Increase by 10 mL q 24 hrs as tolerated to goal of 45 mL/hr + 30 mL Prostat BID to provide: 1820 kcals/ 103 grams protein/ 821 mL free H20 Monitor for symptoms of intolerance closely 4. If the pt is tolerating enteral nutrition, add Merrill BID to enteral regimen for wound healing support. This will provide an additional 140 kcals daily. 5. Once the pt is tolerating Vital 1.5 @ 25 mL/hr, gradually wean and discontinue TPN per MD orders. Continue to monitor electrolytes and glucose levels closely. Status: Pt is at moderate-severe nutritional risk. RD will continue to follow. Respectfully, JEROME ORTEGA RD, LD Food and Nutritional Services [facility] cc: client file
--- NOTE | ~2016-05-24 | CR72 ---
[facility] A Service of [facility] & [facility] RADIOLOGY TEXT RESULTS PATIENT: NEHEMIAH BOWENS LOCATION: [address]- : [birth year] UNIT #: [id number] AGE: [address]: Shon Prather MD SEX: F ORDER DR: [id number] [facility] [address] [facility]. [place], [place] [address] [id number] I MR#: [id number] Acc #: [id number] NAME: NEHEMIAH BOWENS. : 1945 SEX: F STUDY DATE/TIME: 06/18/2016 4:15 UNIT: [facility] ROOM: [facility] STUDY DESCRIPTION: CR Chest Single View Portable Attending Physician: Shon Prather Jr., M.D. Ordering Physician: Eliu Mackenzie M.D. Primary Care Physician: Jared Johnson D.O. MEDICAL IMAGING REPORT This report is preliminary unless electronic signature is present EXAM Portable chest radiograph. INDICATIONS Fever, respiratory failure and tachycardia since May 24, 2016. FINDINGS Tracheostomy is noted. Patient has a left subclavian central venous line, which extends into the superior vena cava. Heart and mediastinal silhouette is unchanged. Persistent infiltrate is noted at the right lung base. There is also some left basilar atelectasis versus infiltrate. No pneumothorax is seen. There are small bilateral pleural effusions, left greater than right. Diffuse interstitial prominence could reflect some vascular congestion, but appears improved when compared to yesterday's study. Dictated by... Samantha Denson M.D. THIS IS AN ELECTRONICALLY VERIFIED REPORT Samantha Denson M.D. at 06/18/2016 3:41 PM AFF/pc TD: 06/18/2016 10:29 JOB #: [id number] MEDICAL IMAGING REPORT Page 1 of 1 COPY
--- NOTE | ~2016-05-24 | FU ---
[facility] Nutrition Therapy DATE: 06/13/16 Patient: NEHEMIAH BOWENS Physician: BREEZY Address: [address] Room/Bed: [address], Zip: [place] [address] Admit Date: 05/24/16 Date of : [birth year] Height: 5 0 Weight: 142 64.7 NUTRITION MONITORING/FOLLOW-UP: Reason: TPN/ ENTERAL NUTRITION FOLLOW UP Anthropometrics: Wt 06/13: 64.7 kg Labs: Gluc 147 Alb 1.6 Accuchecks 160 Trig 219 Meds: Fentanyl, MgSO4, KCl, pepcid, TPN @ 80 ml/hr, novolog, phenergan I&O's: 3780/3645, last BM 06/13 (ileostomy) Skin: No changes noted Edema: BL hands/arms 1+ BL ankles- trace Estimated Nutrition Needs: 2136-7835 kcals (25-30 kcals/kg) 88-118 gams protein (1.5-2.0 grams/kg) Assessment: Chart reviewed, events noted. Pt is receiving TPN + enteral nutrition at this time. For enteral nutrition, the pt is receiving Vital 1.5 @ 30 mL/hr + Prostat BID. TPN continues to run at 80 mL/hr, which is meeting 100% of the pt's estimated needs. Combination of TPN + EN is now exceeding the pt's needs. RD spoke with pharmacy, and recommended to gradually wean the TPN now that EN is meeting over half of the pt's estimated nutrient needs. RD and pharmacy also discussed that lipids do not need to be cycled now that the pt is receiving enteral nutrition. Per RN report, the pt had 170 cc residuals last night, and ~85cc this AM. Please see recommendations below. Dx: Increased nutrient needs RT increased metabolic demand/ wound healing AEB recent abdominal surgery, delayed wound healing- ACTIVE Intervention: 1. Wean TPN 2. Enteral nutrition Monitoring, Evaluation and Goals: 1. EN; gradually increase to goal rate. provide >80% goal volume 2. TPN; wean 3. Labs; WNL 4. Promote wound healing [facility] Nutrition Therapy DATE: 06/13/16 Patient: NEHEMIAH BOWENS Physician: BREEZY Address: [address] Room/Bed: [address], Zip: [place] [address] Admit Date: 05/24/16 Date of : 45 Height: 5 0 Weight: 142 64.7 5. Promote regular GI function Recommendations: 1. Recommend weaning TPN per pharmacy dosing now that enteral nutrition is meeting >50% of the pt's nutrient needs. RD discussed with pharmacy. 2. Increase Vital 1.5 by 10 mL q 8 hrs as tolerated to goal of 45 mL/hr + Prostat BID. This will meet 100% of the pt's estmated nutrient needs by providin kcals/ 103 grams protein/ 821 mL free H20 3. If the pt is extubated, recommend MEDICAL SCHEDULER evaluation to determine if the pt can safely tolerate PO intake. Would start with clear liquids if appropriate to determine tolerance. Status: Pt is at moderate- severe nutritional risk. RD will continue to follow. Respectfully, JEROME ORTEGA RD, LD Food and Nutritional Services [facility] cc: client file
--- NOTE | ~2016-05-24 | CR72 ---
[facility] A Service of [facility] & [facility] RADIOLOGY TEXT RESULTS PATIENT: NEHEMIAH BOWENS LOCATION: [address]- : [birth year] UNIT #: [id number] AGE: [address]: Shon Prather MD SEX: F ORDER DR: [id number] [facility] [address] [facility]. [place], [place] [address] [id number] I MR#: [id number] Acc #: [id number] NAME: NEHEMIAH BOWENS. : 1945 SEX: F STUDY DATE/TIME: 06/16/2016 12:05 UNIT: [facility] ROOM: [facility] STUDY DESCRIPTION: CR Chest Single View Portable Attending Physician: Shon Prather Jr., M.D. Ordering Physician: Rebeka Vásquez D.O. Primary Care Physician: Jared Johnson D.O. MEDICAL IMAGING REPORT This report is preliminary unless electronic signature is present EXAM Portable AP view of the chest, 06/16/2016 COMPARISON June 15, 2016; June 14, 2016 and June 12, 2016 INDICATION 70-year-old female post left subclavian central venous line placement. FINDINGS There is a new left subclavian central venous catheter with the tip terminating in the SVC. Preexisting left upper extremity PICC is again noted with the tip also terminating in the SVC. Tracheostomy cannula appears adequately positioned. No evidence of pneumothorax. Cardiomediastinal silhouette is within normal limits. There is slight increased medial right basilar opacities and increased interstitial opacities throughout the lungs with stable left basilar opacities. Findings may represent atelectasis and bronchovascular crowding. Developing pulmonary vascular congestion and/or pulmonary edema cannot be excluded. Clinical correlation to exclude signs of pneumonia are recommended. There may be trace stable pleural effusion. There is calcification of the aortic arch in the proximal descending thoracic aorta. IMPRESSION New left subclavian central venous catheter terminates in the SVC. The PICC is stable terminating in the SVC as well. No evidence of pneumothorax. Lung volumes appear diminished from comparison study with increasing bibasilar lung opacities and increasing interstitial opacities throughout the remainder of the lungs, perhaps reflecting bronchovascular crowding. Given the normal heart size pulmonary vascular congestion is thought less likely. Correlation to exclude size of pneumonia recommended. [facility] A Service of [facility] & [facility] RADIOLOGY TEXT RESULTS PATIENT: NEHEMIAH BOWENS LOCATION: [place] [address] : [birth year] UNIT #: [id number] AGE: [address]: Shon Prather MD SEX: F ORDER DR: Dictated by... Anthony Bah M.D. THIS IS AN ELECTRONICALLY VERIFIED REPORT Anthony Bah M.D. at 06/18/2016 4:03 PM ROSALIE/tani TD: 06/17/2016 00:05 JOB #: [id number] MEDICAL IMAGING REPORT Page 1 of 1 COPY
--- NOTE | ~2016-05-24 | CT134 ---
[facility] A Service of [facility] & [facility] RADIOLOGY TEXT RESULTS PATIENT: NEHEMIAH BOWENS LOCATION: [address]22 : [birth year] UNIT #: [id number] AGE: [address]: Shon Prather MD SEX: F ORDER DR: [id number] [place] [id number] [facility]. [place], [place] [address] [id number] I MR#: [id number] Acc #: [id number] NAME: NEHEMIAH BOWENS. : 1945 SEX: F STUDY DATE/TIME: 06/17/2016 14:21 UNIT: [facility] ROOM: [facility] STUDY DESCRIPTION: CT Guide Attending Physician: Shon Prather Jr., M.D. Ordering Physician: Shon Prather Jr., M.D. Primary Care Physician: Jared Johnson D.O. MEDICAL IMAGING REPORT This report is preliminary unless electronic signature is present EXAM CT-guided drain placement INDICATIONS Ms. Bowens is a 70-year-old lady who underwent a CT scan June 15, 2016 which showed, both intraabdominal and abdominal wall fluid collections. Drain placement has been requested. TECHNIQUE This CT exam was performed with one or more of the following radiation dose reduction techniques: Automatic exposure control, adjustment of mA and/or kV according to patient size, and iterative reconstruction. PROCEDURE The risks, benefits, and alternatives to the procedure were explained to the patient's power of insurance attorney, and signed, informed consent was obtained. She was placed supine on the CT scanner gantry. Preliminary CT scan was performed through the region of interest. An appropriate site overlying the patient's left lower quadrant abdominal wall collection was selected. The overlying skin was marked. The patient was prepped and draped in usual sterile fashion. Time-out was performed as per protocol. Skin and subcutaneous tissues were anesthetized with buffered lidocaine and a CHROMAomeh catheter was advanced into the collection. Repeat CT scan confirmed appropriate positioning of the catheter. Wire was advanced through the catheter. The tract was dilated and an 8-Argentine drain was placed within the collection with removal of blood-tinged thick material. A sample of this will be sent to the lab for Gram, stain culture and sensitivity. The catheter was secured using 2 2-0 silk sutures and was placed to suction drainage. At this point I turned my attention to the upper abdominal collection. This collection was located adjacent adjacent to the greater curvature of the stomach. This appears smaller than on the prior exam from June 15, 2016 now measuring about 5.3 x 3.1 cm previously 5.3 x 4 cm. The overlying skin was marked. The patient was prepped and STS. [facility] A Service of [facility] RADIOLOGY TEXT RESULTS PATIENT: NEHEMIAH BOWENS [facility]ATION[facility] [birth year] UNIT #: [id number] AGE: [address]: Shon Prather MD SEX: F ORDER DR: draped in the usual sterile fashion. Time-out was performed as per protocol. Skin and subcutaneous and tissues were anesthetized with buffered lidocaine and a Local Eye Site catheter was advanced into the fluid. Upon entering the fluid I was able to aspirate clear yellow material and I think the appearance is probably most in keeping with some loculated ascites as it did not appear to be superinfected. I opted not to place a drain and manually aspirated about 40 mL of serous material. This will be sent to the lab for Gram stain, culture and sensitivity. The patient is on a Fentanyl drip at 250 mcg per hour. She did receive a mg of conscious sedation during the procedure and continuous monitoring was provided by the IVR nurses. Total sedation time was 55 minutes. IMPRESSION 1. Successful placement of an 8-Argentine pigtail drainage catheter within the patient's abdominal wall collection. This did appear to be blood-tinged thick material. Ultimately the drain may need to be upsized for better evacuation of the fluid. 2. Fluid collection adjacent to the greater curvature in the stomach has diminished in size when compared to the prior exam. This did appear to be some loculated ascites, rather than infected material, I did aspirate about 40 mL which will be sent to the lab for Gram stain, culture and sensitivity. Dictated by... Samantha Denson M.D. THIS IS AN ELECTRONICALLY VERIFIED REPORT Samantha Denson M.D. at 06/18/2016 3:43 PM AFF/bd TD: 06/18/2016 11:29 JOB #: [id number] MEDICAL IMAGING REPORT Page 1 of 1 COPY
--- NOTE | ~2016-05-24 | CR72 ---
[facility] A Service of [facility] RADIOLOGY TEXT RESULTS PATIENT: NEHEMIAH BOWENS LOCATION: [place] [address] : [birth year] UNIT #: [id number] AGE: [address]: Shon Prather MD SEX: F ORDER DR: [id number] [facility] [address] [facility]. [place], [place] [address] [id number] I MR#: [id number] Acc #: [id number] NAME: NEHEMIAH BOWENS. : 1945 SEX: F STUDY DATE/TIME: 06/22/2016 5:14 UNIT: [facility] ROOM: [facility] STUDY DESCRIPTION: CR Chest Single View Portable Attending Physician: Shon Prather Jr., M.D. Ordering Physician: Eliu Mackenzie M.D. Primary Care Physician: Jared Johnson D.O. MEDICAL IMAGING REPORT This report is preliminary unless electronic signature is present EXAM Portable chest. DATE OF EXAM 06/22/2016 HISTORY Respiratory failure and shortness of air for 28 days. COMPARISON Comparison chest 06/20/2016. FINDINGS Frontal chest demonstrates tubes and lines in stable position. No visible pneumothorax. Small left pleural effusions stable. Mild left basilar atelectasis/infiltrate. Right lung clear. Heart size and mediastinum are stable. IMPRESSION 1. Tubes and lines stable. No pneumothorax. 2. Stable small left pleural effusion and left basilar atelectasis/infiltrate. Dictated by... Koby Sawyer M.D. THIS IS AN ELECTRONICALLY VERIFIED REPORT Koby Sawyer M.D. at 06/22/2016 11:29 PM LAUREEN/louis TD: 06/22/2016 16:31 JOB #: [id number] [facility] A Service [facility] RADIOLOGY TEXT RESULTS PATIENT: NEHEMIAH BOWENS LOCATION: [place] [address] : [birth year] UNIT #: [id number] AGE: [address]: Shon Prather MD SEX: F ORDER DR: MEDICAL IMAGING REPORT Page 1 of 1 COPY
--- NOTE | ~2016-05-24 | CO ---
Unit #: [id number] #: [id number] Patient: NEHEMIAH BOWENS [id number] [address] [place], [place] [address] [id number] I MR#: [id number] NAME: NEHEMIAH BOWENS. ROOM: [facility] Age: 70 Sex: F Admission Date: 05/24/2016 : 1945 Attending Physician: Shon Prather Jr., M.D. Primary Care Physician: Jared Johnson D.O. Consultation Date: 05/27/2016 CONSULTATION REPORT REASON FOR CONSULTATION Hyperkalemia. HISTORY OF PRESENT ILLNESS Ms. Bowens is a 70-year-old Martiniquais female whom we were called today for a potassium of 7.1. When notified of the consult, I had called to the floor and talked with Dr. Rivero. The patient was moved downstairs for radiologic testing. Dr. Rivero had ordered an acute treatment for hyperkalemia and stopped the lisinopril and the IV fluids that had potassium in them. I did go down to Radiology to see the patient in between x-rays. She is very confused. She does have an NG tube in place. Her sitter is saying that she is having some incontinence of urine and needs a Petersen catheter. She does seem agitated and anxious. She does not appear to be in any respiratory distress. PAST MEDICAL HISTORY Significant for hypertension, diabetes, previous acute kidney injury, GERD, hyperlipidemia. PAST SURGICAL HISTORY Colectomy, ostomy placement and with reversal, gallbladder resection. HOME MEDICATIONS Lisinopril which has been held, fenofibrate, Nexium, Levsin, fish oil, Centrum Silver, famotidine, Glucophage, metoprolol, and amlodipine. ALLERGIES She has no known drug allergies. FAMILY HISTORY Significant for heart disease and hypertension, but no family history of kidney problems. SOCIAL HISTORY She apparently lives with her sister. There is no reported tobacco, alcohol, or drug abuse. REVIEW OF SYSTEMS A complete 12-point review of systems was attempted, but unable to be obtained secondary to the patient's confusion. There has been no reports of hematuria or swelling. No reports of rashes. She does appear to have some pain in her abdomen postoperatively from her hernia repair with clear distention. Unless otherwise indicated, the review of systems was not able to be obtained. Unit #: [id number] #: [id number] Patient: NEHEMIAH BOWENS PHYSICAL EXAMINATION VITAL SIGNS: The patient is afebrile, pulse 102, respiratory rate 40, blood pressure 176/84, and was as low as 83/55 on 05/25/2016. I's and O's are positive by 3.2 L with 725 mL of urine reported. GENERAL: This is a 70-year-old female, confused, but in no acute distress. HEENT: Head is atraumatic and normocephalic. Eyes show pale conjunctivae. NG tube is in place, she is trying to pull it out. Oropharynx is dry. NECK: Shows no rigidity, no JVD. HEART: Tachycardic and regular with no gallop or rub appreciated. LUNGS: Clear with no wheezing, no rhonchi. Breathing is nonlabored. ABDOMEN: Postop distended, tender to palpation diffusely. EXTREMITIES: No lower extremity clubbing, cyanosis, or edema. SKIN: Dry. No rashes identified. MUSCULOSKELETAL: No joint effusions noted. NEUROLOGIC: The patient is confused, but is moving all 4 extremities. LYMPHATIC: There is no neck or cervical lymphadenopathy. PSYCHIATRIC: Unable to be assessed. DIAGNOSTIC STUDIES LABORATORY RESULTS: ABG earlier this morning showed a pH of 7.39, pCO2 of 27, pO2 of 75, bicarb was 17. Chemistry earlier this morning sodium 123, potassium 7.1, chloride 99, bicarb of 20, glucose 130, BUN 36, creatinine 1.8. CBC showed a white count of 8, hemoglobin 9, platelet count 261. Prior chemistry was not done yesterday prior to that the creatinine was 1.2 with a normal potassium on 05/25/2016. ASSESSMENT AND PLAN 1. Hyperkalemia. We were not notified of this potassium via the consult until almost 10:30 and I have had difficulty seeing her this morning, because she has been downstairs in Radiology getting scans. She has been treated acutely with insulin, bicarb, and calcium. We were unable to give her any Kayexalate due to her gastrointestinal issues. We will dialyze her acutely for her hyperkalemia and follow response. 2. Acute kidney injury. This looks to be postop from her ileus while on lisinopril with relatively low blood pressure. She probably has prerenal azotemia versus acute tubular necrosis. Lisinopril has been stopped and she will be getting fluids. We will monitor her response and place a Petersen. 3. Hyponatremia. This is likely related to her acute kidney injury and we will correct with dialysis and saline. 4. Hypertension. Blood pressure has been running low and we will hold her lisinopril and Norvasc and place a hold parameter on her beta tamar. 5. Postop hernia repair with ileus with Surgery following. 6. History of diabetes. 7. History of gastroesophageal reflux disease. 8. Again, I have ordered a stat dialysis catheter placement and notified Interventional Radiology of this issue. I have also talked with her floor nurse, Mera and noted her of the need to transfer to the ICU for closer monitoring and the need for acute dialysis. All of this is being arranged and I have also notified dialysis of the need for acute dialysis here this afternoon. I would like to thank Dr. Prather for this consult and the opportunity to participate in evaluation and care of Ms. Bowens. Unit #: [id number] #: [id number] Patient: NEHEMIAH BOWENS Dictated by... David Bro Jr., MMeseret. ANTOLIN/hernandez TD: 05/27/2016 22:51 JOB #: [id number] CONSULTATION REPORT X David Bro MD X CONSULTATION REPORT
--- NOTE | ~2016-05-24 | FU ---
[facility] Nutrition Therapy DATE: 06/24/16 Patient: NEHEMIAH BOWENS Physician: BREEZY Address: [address] [facility] Room/Bed: [address], Zip: [place] [address] Admit Date: 05/24/16 Date of : [birth year] Height: 5 0 Weight: 146 66.5 NUTRITION MONITORING/FOLLOW-UP: Reason: Nutrition follow up Anthropometrics: Ht: 60" Adm wt: 59.1 kg BMI: 25.4 Wt 06/24: 66.5 kg Labs: Gluc 118 Creat 0.4 Alb 1.6 AST 49 Mg++ 1.5 Accuchecks 108-113 Prealb 16.6 Meds: Levaquin (IV), fentanyl, MgSO4, KCl, pepcid, novolog, phenergan I&O's: 3204/3880, last BM 06/23 Skin: Reviewed, no changes. Edema: Generalized- BL hands/ arms/ pubis/ trunk/ hips Estimated Nutrition Needs: 4960-7871 kcals (25-30 kcals/kg) 88-118 grams protein (1.5-2.0 grams/kg) Assessment: Chart reviewed, events noted. Pt remains intubated in the ICU. RN reports the pt is tolerating Vital 1.5 @ 45 mL/hr + Prostat BID with 100 cc residuals this AM. Per pump history, the pt has received 93% goal volume of enteral nutrition over the past 24 hrs, and 87% goal volume over the past 48 hrs. Pt went to IVR this AM to get drains removed. Nutrition diagnosis remains. Dx: Increased nutrient needs RT increased metabolic demand/ wound healing AEB recent abdominal surgery, delayed wound healing- IN PROGRESS Intervention: 1. Enteral nutrition Monitoring, Evaluation and Goals: GOALS MET OR IN PROGRESS 1. Enteral nutrition; provide >80% goal volume x 24 hrs 2. Labs; WNL 3. Weight; preserve lean body mass 4. Skin; promote healing Recommendations: 1. Continue enteral nutrition with Vital 1.5 @ 45 ml/hr + Prostat BID + Merrill BID as tolerated. [facility] Nutrition Therapy DATE: 06/24/16 Patient: NEHEMIAH BOWENS Physician: BLAJOS Address: [address] [place] [address] Room/Bed: [address], Zip: [place] [address] Admit Date: 05/24/16 Date of : [birth year] Height: 5 0 Weight: 146 66.5 2. If the pt is extubated, recommend ROBOT OPERATOR evaluation to determine if the pt can safely tolerate PO intake. Status: Pt is at moderate nutritional risk. RD will continue to follow. Respectfully, JEROME ORTEGA RD, LD [employer] and Nutrition[facility] Services [facility] cc: client file
--- NOTE | ~2016-05-24 | US6 ---
[facility] A Service of [facility] RADIOLOGY TEXT RESULTS PATIENT: NEHEMIAH BOWENS LOCATION: [facility] : [birth year] UNIT #: [id number] AGE: [address]: Shon Prather MD SEX: F ORDER DR: [id number] [place] [id number] [facility]. [place], [place] [address] [id number] I MR#: [id number] Acc #: [id number] NAME: NEHEMIAH BOWENS. : 1945 SEX: F STUDY DATE/TIME: 06/10/2016 8:13 UNIT: [facility] ROOM: [facility] STUDY DESCRIPTION: US Abdominal Limited Attending Physician: Shon Prather Jr., M.D. Ordering Physician: Shon Prather Jr., M.D. Primary Care Physician: Jared Johnson D.O. MEDICAL IMAGING REPORT This report is preliminary unless electronic signature is present EXAM Right upper quadrant abdominal ultrasound INDICATIONS Status post cholecystectomy. Suspicion for biliary stones. PROCEDURE Gaston-scale and Doppler imaging right upper quadrant of the abdomen COMPARISON 06/08/16 FINDINGS Visualized portions of pancreas are unremarkable. The liver measures 17.1 cm. No liver mass is seen on submitted images. The right kidney measures 10.6 cm. Common duct measures 4 mm. No convincing evidence for biliary dilation or stone. Previous cholecystectomy. IMPRESSION Status post cholecystectomy. No bile duct dilation or convincing evidence for biliary stone or obstruction. Dictated by... Joni Card M.D. THIS IS AN ELECTRONICALLY VERIFIED REPORT Joni Card M.D. at 06/14/2016 7:15 AM EED/chanel TD: 06/10/2016 14:03 [facility] A Service [facility] RADIOLOGY TEXT RESULTS PATIENT: NEHEMIAH BOWENS LOCATION: [address] : [birth year] UNIT #: [id number] AGE: [address]: Shon Prather MD SEX: F ORDER DR: JOB #: [id number] MEDICAL IMAGING REPORT Page 1 of 1 COPY
--- NOTE | ~2016-05-24 | DS ---
Unit #: [id number] #: [id number] Patient: NEHEMIAH BOWENS [id number] [facility]. [address] [place], [place] [address] [id number] I MR#: [id number] NAME: NEHEMIAH BOWENS. ROOM: [facility] Age: 70 Sex: F Admission Date: 05/24/2016 : 1945 Discharge Date: 07/02/2016 Attending Physician: Shon Prather Jr., M.D. Primary Care Physician: Jared Johnson D.O. DISCHARGE SUMMARY ADMITTING AND FINAL DIAGNOSIS Ventral incisional hernia. SECONDARY DIAGNOSES 1. Postop small bowel leak. 2. Sepsis. 3. Respiratory failure. 4. Wound infection. OPERATIONS ON THIS ADMISSION The patient initially had laparoscopic ventral hernia repair with takedown of multiple adhesions followed by exploratory laparotomy by Dr. Segura approximately three days later for what appeared to be some ischemic bowel with leak from the small bowel from her lysis of adhesions. Thereafter, she developed evidence of fluid collections in the abdomen and underwent an attempted exploratory laparotomy but basically had an inoperable abdomen. There was some drainage performed. Following this, the patient has had respiratory failure and then non-weanable and has had a tracheostomy. She has also been anemic with hemoglobin in the range of 8.5 most current. She has been on tube feedings. Initially, there was thought to be a possible small bowel leak in the lower part of her wound but his has completely resolved and there is no evidence of any leakage or fistulas. At present, she is afebrile, maximum temperature 100. Respiratory-she is nonlabored on the respirator. Her abdomen is soft. Wound is granulating with less tunneling that it initially had. The chemistry is pending this morning. She has been followed by Infectious Disease too and is presently off antibiotics. The plan will be to transfer her to [place] for further convalescence and weaning from the respirator and, eventually, she will be seen and followed up in the office for her ileostomy and wound. Dictated by... Shon Prather Jr., M.D. JMB/dov TD: 07/02/2016 08:18 JOB #: [id number] Unit #: [id number] #: [id number] Patient: SUKHWINDERJunoNEHEMIAH B DISCHARGE SUMMARY Page 1 of 1 X Shon Prather MD X DISCHARGE SUMMARY
--- NOTE | ~2016-05-24 | CR72 ---
[facility] A Service of [facility] & [facility] RADIOLOGY TEXT RESULTS PATIENT: NEHEMIAH BOWENS LOCATION: [place] [address] : [birth year] UNIT #: [id number] AGE: [address]: Shon Prather MD SEX: F ORDER DR: [id number] [facility] [address] [facility]. [place], [place] [address] [id number] I MR#: [id number] Acc #: [id number] NAME: NEHEMIAH BOWENS : 1945 SEX: F STUDY DATE/TIME: 05/29/2016 02:44 UNIT: [facility] ROOM: [facility] STUDY DESCRIPTION: CR Chest Single View Portable Attending Physician: Shon Prather Jr., M.D. Ordering Physician: Rohit Gomez M.D. Primary Care Physician: Jared Johnson D.O. MEDICAL IMAGING REPORT This report is preliminary unless electronic signature is present EXAM Portable chest 05/29/2016 02:44 INDICATION Shortness of air, abdominal pain for the last 2 days. History of hypertension. FINDINGS AP portable chest is compared with 05/27/2016. Endotracheal tube is positioned in the mid trachea. Lung volumes are low. There is continued atelectasis in the bases. Heart remains enlarged. Right side IJ line tip is in the right atrium. No pneumothorax. Dictated by... Jared Paiz Jr., M.D. THIS IS AN ELECTRONICALLY VERIFIED REPORT Jared Paiz Jr., M.D. at 05/29/2016 9:17 PM MELONY/fabio TD: 05/29/2016 10:24 JOB #: [id number] MEDICAL IMAGING REPORT COPY
--- NOTE | ~2016-05-24 | OR ---
Unit #: [id number] #: [id number] Patient: NEHEMIAH BOWENS [id number] [address] [place], [place] [address] [id number] Luis MR#: [id number] NAME: NEHEMIAH BOWENS. ROOM: [facility] Date of Procedure: 06/11/2016 Admission Date: 05/24/2016 Surgeon: Jared Segura M.D. : 1945 Attending Physician: Shon Prather Jr., M.D. Primary Care Physician: Jared Johnson D.O. OPERATIVE REPORT PREOPERATIVE DIAGNOSES Intraabdominal sepsis and ventilator dependence. POSTOPERATIVE DIAGNOSES Intraabdominal sepsis and ventilator dependence. PROCEDURES PERFORMED 1. Exploratory laparotomy, washout of peritoneal cavity with bacitracin solution. 2. Tracheostomy. ANESTHESIA General endotracheal anesthesia. ESTIMATED BLOOD LOSS 50 mL. INDICATIONS FOR PROCEDURE A 70-year-old female, who had previously had a laparoscopic ventral hernia repair and became septic postoperatively. I was called to see the patient and she had peritonitis and evidence of intestinal perforation. At that time, I took her to the operating room, did a washout and resection with end ileostomy and mucous fistula formation. Since that time in the intensive care unit, she has shown significant improvement, but over the last 24 to 48 hours, she has had some fevers and on CT scan, she had some intraabdominal fluid collections that were not able to be addressed percutaneously. She also developed ventilator dependence and tracheostomy and was requested by the Pulmonary Medicine service. DESCRIPTION OF PROCEDURE The patient was transported from her hospital room to the operating room and placed in the operating room table in supine position. After induction of general endotracheal anesthesia, her stoma bags were removed. Abdominal wall aicha were removed. Superficial wounds were cleaned and unroofed of eschar. 10/10 drapes were placed to protect the ostomy and the G-tube and then the abdominal wall was prepped and draped in usual sterile fashion. Her previously placed midline suture was removed. We entered into the peritoneal cavity and her bowel really was what I would call like a concrete abdomen and that was very friable. It was stuck together and there was a matted bowel and no clear separation between the bowel loops. Again carefully exploring the peritoneal cavity, no solis pus was identified. There was some turbid serous fluid, but again no Unit #: [id number] #: [id number] Patient: NEHEMIAH BOWENS solis pus. A liter of bacitracin was used to wash out the abdominal cavity the best I could, but again due to the friability of the bowel and the risk of injury and loss of further bowel, I did not aggressively tried a separate bowel loops. There was a space in the pelvis where I could get down between the bladder and the rectum and in that area, again there was no solis pus. After I had irrigated and washed out the bowel, I reclosed the midline fascia with #1 Vicryl interrupted sutures. Prior to closing the soft tissue; however, there were some areas of fatty necrosis which I sharply debrided. There was adequate hemostasis. Once the midline was closed, I took the drapes down and cleaned the anterior abdominal wall, replaced the ostomy bags and then dressed all of the wounds. After that was completed, the shoulder roll was placed and hyperextended her neck. Her neck and shoulders were prepped and draped in usual sterile fashion. A transverse incision 2 fingerbreadths above the sternal notch was made and dissected down through the midline and identified the trachea. The third tracheal cartilage had a box incision made to remove the piece of cartilage and then a cuffed Shiley tracheostomy tube was placed as the endotracheal tube was removed. The inner cannula was placed. The balloon was inflated and we had excellent ventilation and end-tidal CO2. The tracheostomy tube was secured with 2-0 nylon suture and trach collar. Sponges and needle counts were correct x3. The patient tolerated the procedure well and was transported back to the intensive care unit in stable condition. Dictated by... Moisés Rai/hernandez TD: 06/12/2016 04:12 JOB #: [id number] OPERATIVE REPORT Page 1 of 1 X Jared Segura MD PROCEDURE OPERATIVE NOTE
--- NOTE | ~2016-05-24 | CR72 ---
[facility] A Service of [facility] & [facility] RADIOLOGY TEXT RESULTS PATIENT: NEHEMIAH BOWENS LOCATION: [place] [address]- : [birth year] UNIT #: [id number] AGE: [address]: Shon Prather MD SEX: F ORDER DR: [id number] [facility] [address] [facility]. [place], [place] [address] [id number] I MR#: [id number] Acc #: [id number] NAME: NEHEMIAH BOWENS. : 1945 SEX: F STUDY DATE/TIME: 06/23/2016 2:27 UNIT: [facility] ROOM: [facility] STUDY DESCRIPTION: CR Chest Single View Portable Attending Physician: Shon Prather Jr., M.D. Ordering Physician: Bartolo Callahan M.D. Primary Care Physician: Jared Johnson D.O. MEDICAL IMAGING REPORT This report is preliminary unless electronic signature is present EXAM Portable chest 06/23/2016 HISTORY Fever and pneumonia for 30 days. COMPARISON Chest 06/22/2016 FINDINGS Frontal chest demonstrates tubes and lines in stable position. No pneumothorax. Stable trace left pleural effusion and left basilar atelectasis/infiltrate. Right lung clear. Heart size and mediastinum are stable. IMPRESSION 1. Tubes and lines stable. No pneumothorax. 2. Stable trace left pleural effusion and left basilar atelectasis/infiltrate. Dictated by... Koby Sawyer M.D. THIS IS AN ELECTRONICALLY VERIFIED REPORT Koby Sawyer M.D. at 06/24/2016 4:38 PM LAUREEN/to TD: 06/23/2016 16:52 JOB #: [id number] MEDICAL IMAGING REPORT Page 1 of 1 COPY
--- NOTE | ~2016-05-24 | CT4 ---
[facility] A Service of [facility] RADIOLOGY TEXT RESULTS PATIENT: NEHEMIAH BOWENS LOCATION: [address]- : [birth year] UNIT #: [id number] AGE: [address]: Shon Prather MD SEX: F ORDER DR: [id number] [facility] [address] [facility]. [place], [place] [address] [id number] I MR#: [id number] Acc #: [id number] NAME: NEHEMIAH BOWENS. : 1945 SEX: F STUDY DATE/TIME: 06/08/2016 16:03 UNIT: [facility] ROOM: [facility] STUDY DESCRIPTION: CT Abd and Pelv Wo Cont Attending Physician: Shon Prather Jr., M.D. Ordering Physician: Reese Estrella M.D. Primary Care Physician: Jared Johnson D.O. MEDICAL IMAGING REPORT This report is preliminary unless electronic signature is present EXAM CT abdomen and pelvis without contrast, 06/08/2016 HISTORY Fever following hernia repair and small bowel leak 11 days ago. TECHNIQUE This CT exam was performed with one or more of the following radiation dose reduction techniques: automatic exposure control, adjustment of mA and/or kV according to patient size, and iterative reconstruction. FINDINGS CT abdomen and pelvis was performed without contrast. CT ABDOMEN: Partly open anterior midline abdominal and pelvic incision. Small amount of ascites in the abdomen and pelvis. Cholecystectomy. Percutaneous gastrostomy tube extends into the proximal stomach. A loculated fluid collection in the lateral left mid abdomen measures 7.3 cm x 6.6 cm. Smaller fluid collection in the right lateral abdomen measures 5.2 cm x 3.7 cm, abutting the cecum and proximal ascending colon. Mild diffuse stranding in the mesentery. Right lower quadrant ileostomy. The spleen, pancreas, right kidney, and adrenal glands are normal. There is a cyst in the anterior upper pole left kidney measuring 3.4 cm. Cholecystectomy. Normal caliber abdominal aorta. CT PELVIS: Subcutaneous fluid collection over the anterior left pelvis measures 4.9 cm x 10.5 cm. Smaller fluid collection in the anterior midline pelvis, deep to the abdominal wall measures 3.3 cm x 6.6 cm. This is probably contiguous with a fluid collection in the right mid pelvis measuring approximately 3.2 cm x 6.5 cm. Postop changes in the sigmoid colon with partial sigmoid resection. This could be postoperative seromas or other nonspecific fluid collection. Abscesses are not excluded but STS. [facility] A Service of [facility] RADIOLOGY TEXT RESULTS PATIENT: NEHEMIAH BOWENS LOCATION: [facility] : [birth year] UNIT #: [id number] AGE: [address]: Shon Prather MD SEX: F ORDER DR: there are no associated air bubbles. Normal appendix. No bowel obstruction. IMPRESSION 1. Multiple loculated fluid collections in the abdomen and pelvis as described. The largest of these include a fluid collection in the lateral left mid abdomen adjacent the pancreatic tail measuring 7.3 cm x 6.6 cm, one in the lateral right mid abdomen adjacent to the cecum and proximal ascending colon measuring 5.2 cm x 3.7 cm, one in the subcutaneous tissues over the anterior left pelvis measuring 4.9 cm x 10.5 cm, and an additional probable multiloculated fluid collection in the anterior midline in the mid pelvis extending to the abdominal wall and into the right mid pelvis. There are no associated air bubbles, but abscesses cannot be excluded. These could otherwise be sterile postoperative fluid collections. 2. Moderate diffuse stranding in the mesentery could be secondary to edema or inflammation. 3. Open anterior midline abdominal and pelvic incision. 4. Right lower quadrant ileostomy. 5. Postop changes in the sigmoid colon. Dictated by... John Lo M.D. THIS IS AN ELECTRONICALLY VERIFIED REPORT John Lo M.D. at 06/10/2016 12:25 PM FARHAN/tani TD: 06/09/2016 23:58 JOB #: [id number] MEDICAL IMAGING REPORT COPY
--- NOTE | ~2016-05-24 | CR63 ---
[facility] A Service [facility] RADIOLOGY TEXT RESULTS PATIENT: NEHEMIAH BOWENS LOCATION: [address] : [birth year] UNIT #: [id number] AGE: [address]: Shon Prather MD SEX: F ORDER DR: [id number] [place] [id number] [facility]. [place], [place] [address] [id number] I MR#: [id number] Acc #: [id number] NAME: NEHEMIAH BOWENS : 1945 SEX: F STUDY DATE/TIME: 05/27/2016 10:57 UNIT: [facility] ROOM: [facility] STUDY DESCRIPTION: CR Chest 2 View Attending Physician: Shon Prather Jr., M.D. Ordering Physician: Shon Prather Jr., M.D. Primary Care Physician: Jared Johnson D.O. MEDICAL IMAGING REPORT This report is preliminary unless electronic signature is present EXAM 2 view chest 05/27/2016 HISTORY Respiratory distress, shortness of air, abdominal pain for 4 days, wheezing. COMPARISON 10/24/2015 FINDINGS 2 views of the chest demonstrate low lung volumes. Small amount of bibasilar atelectasis. No focal airspace disease or consolidation. No effusions. The heart and mediastinum unremarkable except mild atherosclerotic changes. Nasogastric tube courses through the mediastinum distal tip well coiled within the stomach. No pneumothorax. Osseous structures unremarkable for age. IMPRESSION Low lung volumes with bibasilar atelectasis. Nasogastric tube in satisfactory position. Dictated by... Akin Villarreal M.D. THIS IS AN ELECTRONICALLY VERIFIED REPORT Akin Villarreal M.D. at 05/28/2016 4:59 PM Abhijit TD: 05/27/2016 17:54 JOB #: [id number] MEDICAL IMAGING REPORT [facility] A Service [facility] RADIOLOGY TEXT RESULTS PATIENT: NEHEMIAH BOWENS LOCATION: [address] : [birth year] UNIT #: [id number] AGE: [address]: Shon Prather MD SEX: F ORDER DR: KATINA
--- NOTE | ~2016-05-24 | CR236 ---
[facility] A Service of [facility] & [facility] RADIOLOGY TEXT RESULTS PATIENT: NEHEMIAH BOWENS LOCATION: [address] : [birth year] UNIT #: [id number] AGE: [address]: Shon Prather MD SEX: F ORDER DR: [id number] [facility] [address] [facility]. [place], [place] [address] [id number] I MR#: [id number] Acc #: [id number] NAME: NEHEMIAH BOWENS. : 1945 SEX: F STUDY DATE/TIME: 05/27/2016 12:37 UNIT: [facility] ROOM: [facility] STUDY DESCRIPTION: CR Small Bowel Sbft W Films Attending Physician: Shon Prather Jr., M.D. Ordering Physician: Shon Prather Jr., M.D. Primary Care Physician: Jared Johnson D.O. MEDICAL IMAGING REPORT This report is preliminary unless electronic signature is present EXAM Small bowel follow-through. HISTORY A few days status post extensive laparoscopic lysis of adhesions with abdominal pain. There is concern for possible perforation. FINDINGS Small bowel follow-through is normal. No abnormal loops of bowel or evidence of contrast leak is seen. Bowel loops are overall normal caliber. IMPRESSION 1. Normal limited small bowel follow-through; spot images were obtained without palpitation and manipulation due to recent abdominal surgery. 2. Total fluoroscopy time 0.3 minutes, with 1 overhead and 9 spot images. Dictated by... Srikanth Rees M.D. THIS IS AN ELECTRONICALLY VERIFIED REPORT Srikanth Rees M.D. at 05/29/2016 11:48 AM PEYMAN/alban TD: 05/28/2016 13:18 JOB #: [id number] MEDICAL IMAGING REPORT COPY
--- NOTE | ~2016-05-24 | CR72 ---
[facility] A Service of [facility] RADIOLOGY TEXT RESULTS PATIENT: NEHEMIAH BOWENS LOCATION: [facility]- : [birth year] UNIT #: [id number] AGE: [address]: Shon Prather MD SEX: F ORDER DR: [id number] [facility] [address] [facility] [place] [facility]. [place], [place] [address] [id number] I MR#: [id number] Acc #: [id number] NAME: NEHEMIAH BOWENS. : 1945 SEX: F STUDY DATE/TIME: 06/20/2016 5:27 UNIT: [facility] ROOM: [facility] STUDY DESCRIPTION: CR Chest Single View Portable Attending Physician: Shon Prather Jr., M.D. Ordering Physician: Shon Prather Jr., M.D. Primary Care Physician: Jared Johnson D.O. MEDICAL IMAGING REPORT This report is preliminary unless electronic signature is present EXAM Portable chest x-ray, 06/20/2016. HISTORY Monitor pnu, respiratory failure, fever. TECHNIQUE AP radiograph of the chest is presented. COMPARISON STUDIES 06/18/2016 FINDINGS Tracheostomy tube and left subclavian central venous catheter unchanged. Stable mild cardiac enlargement. The lungs are well inflated. Pulmonary vascular mildly prominent suggesting mild vascular congestion. Decreased linear interstitial densities in the upper lung zones. Persistent mild linear interstitial densities in the lower lung zones could reflect mild interstitial edema or some degree of chronic change. Decreasing airspace disease at the bilateral lung bases. Significantly decreased airspace density in the left retrocardiac region. Findings suggest significant improvement in bibasilar pneumonia or airspace edema. Improving atelectasis may be present, as well. Probable small left pleural effusion unchanged. This does not appear to be a drainable collection on basis of this image. Dictated by... Damon Swain M.D. THIS IS AN ELECTRONICALLY VERIFIED REPORT [facility] A Service of [facility] RADIOLOGY TEXT RESULTS PATIENT: NEHEMIAH BOWENS LOCATION: [facility]-22 : [birth year] UNIT #: [id number] AGE: [address]: Shon Prather MD SEX: F ORDER DR: Damon Swain M.D. at 06/21/2016 5:05 PM BATSHEVA/myesha TD: 06/20/2016 10:06 JOB #: [id number] MEDICAL IMAGING REPORT Page 1 of 1 COPY
--- NOTE | ~2016-05-24 | CR72 ---
[facility] A Service of [facility] RADIOLOGY TEXT RESULTS PATIENT: NEHEMIAH BOWENS LOCATION: [address] : [birth year] UNIT #: [id number] AGE: [address]: Shon Prather MD SEX: F ORDER DR: [id number] [facility] [address] [facility]. [place], [place] [address] [id number] I MR#: [id number] Acc #: [id number] NAME: NEHEMIAH BOWENS. : 1945 SEX: F STUDY DATE/TIME: 06/06/2016 5:45 UNIT: [facility] ROOM: [facility] STUDY DESCRIPTION: CR Chest Single View Portable Attending Physician: Shon Prather Jr., M.D. Ordering Physician: Eliu Mackenzie M.D. Primary Care Physician: Jared Johnson D.O. MEDICAL IMAGING REPORT This report is preliminary unless electronic signature is present EXAM AP portable chest. DATE 06/06/2016 at 0545 HISTORY Shortness of breath and respiratory failure. Status post exploratory laparotomy 05/28/2016. Diabetes. Hypertension. COMPARISON AP portable chest, 06/04/2016. FINDING ET tube remains in the mid thoracic trachea. The left IJ central line remains in the SVC. No visible pneumothorax. Persistent left basilar retrocardiac consolidation and trace left pleural effusion. Minimal right basilar atelectasis remains. IMPRESSION Persistent retrocardiac consolidation or atelectasis with a small left pleural effusion and minimal right basilar atelectasis. No significant change from the previous study. Dictated by... Angela Moyer M.D. THIS IS AN ELECTRONICALLY VERIFIED REPORT Angela Moyer M.D. at 06/07/2016 12:12 AM [facility]/myesha [facility] A Service of [facility] RADIOLOGY TEXT RESULTS PATIENT: NEHEMIAH BOWENS LOCATION: [address] : [birth year] UNIT #: [id number] AGE: [address]: Shon Prather MD SEX: F ORDER DR: TD: 06/06/2016 12:43 JOB #: [id number] MEDICAL IMAGING REPORT COPY
--- NOTE | ~2016-05-24 | FU ---
[facility] Nutrition Therapy DATE: 06/10/16 Patient: NEHEMIAH Carmichael GOGO Physician: BREEZY Address: [address] [place] [address] Room/Bed: [address], Zip: [place] [address] Admit Date: 05/24/16 Date of : [birth year] Height: 5 0 Weight: 144 65.5 NUTRITION MONITORING/FOLLOW-UP: Reason: TPN/enteral nutrition follow-up Admitting Dx: 70 y/o female admitted with ED, ventral hernia, small bowel perforation Anthropometrics: Ht: 60", admission wt: 59.1 kg, current wt: 65.5 kg, BMI: 25.4 (overweight) Labs: Na 131, Glucose 163, BUN 26, AST 47, POC 138, Prealbumin 11.6 (trending up), Total bili 4.8 (trending down), Alk Phos 139 (trending up) Meds: MgSO4, Kcl, Pepcid, Novolog (low SSI), TPN, Phenergan, prn Morphine and Ativan I&O's: 2804/2330, last BM 06/10 (R ileostomy), abdomen distended/firm/tender Skin: Jaundiced, g-tube site, lap site x 2, multiple intact abrasions abdomen Edema: generalized-trace noted Estimated Nutrition Needs: 3153-8033 kcals per day (25-30 kcals/kg admission wt) 88-118 g protein per day (1.5-2.0 g/kg admission wt) Fluids consistent with kcal needs or per MD Assessment: Chart reviewed, events noted. POD #13 exlap with bowel resection and end ileostomy. Air pockets noted in abdomen, enteral feeds off at this time due to possible follow-up surgery. Enteral feeds previously started on 06/07 with Vital 1.5, able to get rate up to 25 ml/hr but feeds have been off and on due to "high residuals" of 120-275 ml. Patient is no longer receiving Propofol and has been tolerating TPN, solution changed to 25% dextrose over weekend due to pharmacy running out of 15% dextrose, so TPN has been running at 60 ml/hr (goal rate with new solution), but will be changed back to 25% dextrose today and RN will increase rate to previous goal of 80 ml/hr. Previous nutrition goals related to TPN, labs and weight met, goals related to EN and GI function not yet met. Working towards nutrition goals. Previous nutrition diagnosis remains, see altered diagnosis below. RD will continue to follow hospital course. Dx: Increased nutrient needs r/t increased metabolic demand/wound healing requirements AEB recent abdominal surgery with open wound, delayed wound healing. - ACTIVE Intervention: Continue TPN, restart EN when feasible, fluids per [facility] Nutrition Therapy DATE: 06/10/16 Patient: NEHEMIAH Carmichael GOGO Physician: BREEZY Address: [address] [place] [address] Room/Bed: [address], Zip: [place] [address] Admit Date: 05/24/16 Date of : [birth year] Height: 5 0 Weight: 144 65.5 Monitoring, Evaluation and Goals: SOME MET 1. TPN to provide > 80% goal volume x 24 hours. 2. EN will restart and increase gradually to goal rate once ordered. 3. Labs WNL (glucose, lytes, alk phos, T bili, triglycerides, prealbumin). 4. Promote wound healing. 5. Promote regular GI function. Monitor: Per protocol, criteria to determine if above goals met Recommendations: 1. Continue TPN as primary means of nutrition support. Once current dextrose bag runs out hang new bag with 15% dextrose per previous TPN regimen and increase to goal rate of 80 ml/hr. Continue with 5% AA solution. This will provide: -979 dextrose kcals (GUR = 3.4 based on admission wt) -1363 total kcals (23 kcals/kg admission wt, does not meet estimated needs) -96 g protein (1.6 g/kg admission wt) -TPN providing no lipids at this time Consider adding 20% 250 ml lipids on // now that Propofol has been discontinued and triglycerides are trending down. Continue to closely monitor glucose, lytes, prealbumin, T bili and Alk phos; replete lytes to WNL as needed. If Alk phos/LFT's continue to trend upward consider cycling TPN over 20 hours/day and adjust goal rate to 96 ml/hr. 2. Once medically able restart enteral feeds with Vital 1.5 @ 10 ml/hr, increase by 10 ml q 12 hours until goal rate of 45 ml/hr is reached. Add 30 ml Prostat per tube BID to meet increased protein needs. This will provide 1820 kcals, 103 g protein and 821 ml water. Free water flushes per MD noting hyponatremia. *RD will re-assess TPN needs if EN is restarted based on EN rate that is tolerated. 3. Once the patient is tolerating EN @ 30 ml/hr consistently can discontinue TPN. Do not hold EN for GRV < 400 ml. If GRV is > 400 ml do not hold feeding and measure again in 4 hours. If 2nd GRV measurement is > 400 ml hold feeding and continue to reassess q 4 hours. Resume feeds once GRV is < 400 ml. Status: Moderate-severe nutrition risk Respectfully, [facility] Nutrition Therapy DATE: 06/10/16 Patient: NEHEMIAH BOWENS Physician: BREEZY Address: [address] [place] [address] Room/Bed: [address], Zip: [place] [address] Admit Date: 05/24/16 Date of : [birth year] Height: 5 0 Weight: [address], LD [facility] cc: client file
--- NOTE | ~2016-05-24 | CR6 ---
[facility] A Service of [facility] & [facility] RADIOLOGY TEXT RESULTS PATIENT: NEHEMIAH BOWENS LOCATION: [facility] 473-01 : [birth year] UNIT #: [id number] AGE: [address]: Shon Prather MD SEX: F ORDER DR: [id number] [facility] [address] [facility]. [place], [place] [address] [id number] I MR#: [id number] Acc #: [id number] NAME: NEHEMIAH BOWENS : 1945 SEX: F STUDY DATE/TIME: 05/26/2016 8:52 UNIT: [facility] ROOM: [facility] STUDY DESCRIPTION: CR Abdomen Portable Sng View Attending Physician: Shon Prather Jr., M.D. Ordering Physician: Tim Moon M.D. Primary Care Physician: Jared Johnson D.O. MEDICAL IMAGING REPORT This report is preliminary unless electronic signature is present EXAM Abdomen single view HISTORY Vomiting, distension, possible ileus, abdominal pain. COMMENT 2 supine images of the abdomen are submitted for review. Please be aware that supine films do not evaluate for free air or air-fluid level. There is moderate gaseous distension of the stomach and there are multiple nonspecific mildly to moderately distended loops of bowel, some of which are probably small bowel loops. There is some stool in the colon also. There are multiple surgical clips. Please correlate with surgical history. Airspace disease is seen at lung bases. IMPRESSION 1. Supine views of the abdomen show gaseous distension of the stomach as well as multiple distended loops of bowel, some of which are probably small bowel loops. The bowel gas pattern is nonspecific. Please be aware that the supine study does not evaluate for air-fluid level or free air. There are postoperative changes with multiple surgical clips and skin aicha and please correlate with the surgical history. 2. Airspace disease partly seen at lung bases. Dictated by... Lourdes Meehan M.D. THIS IS AN ELECTRONICALLY VERIFIED REPORT Lourdes Meehan M.D. at 05/27/2016 11:38 AM SAC/psc [facility] A Service of [facility] & [facility] RADIOLOGY TEXT RESULTS PATIENT: NEHEMIAH BOWENS [id number] [birth year] UNIT #: [id number] AGE: [address]: Shon Prather MD SEX: F ORDER DR: TD: 05/26/2016 20:07 JOB #: [id number] MEDICAL IMAGING REPORT COPY
--- NOTE | ~2016-05-24 | CO ---
Unit #: [id number] #: [id number] Patient: NEHEMIAH BOWENS [id number] [facility] [address] [facility]. [place], [place] [address] [id number] I MR#: [id number] NAME: NEHEMIAH BOWENS. ROOM: [facility] Age: 70 Sex: F Admission Date: 05/24/2016 : 1945 Attending Physician: Shon Prather Jr., M.D. Primary Care Physician: Jared Johnson D.O. Consultation Date: 06/12/2016 CONSULTATION REPORT PRIMARY CARE PHYSICIAN Jared Johnson D.O. REASON FOR CONSULTATION Altered mental status for 3 to 4 days. PATIENT IDENTIFICATION This is a 70-year-old, right-handed, white female, evaluated in room ICU 22 at [facility]. SOURCE OF INFORMATION Obtained from the patient's son as well as medical record. HISTORY OF PRESENT ILLNESS This is a 70-year-old right-handed female with a past medical history of hypertension, hyperlipidemia, diabetes mellitus, and GERD, who was admitted by Dr. Prather on 05/24/2016 for abdominal pain. The patient underwent ventral hernia repair with lysis of adhesions on 05/24/2016. The patient underwent subsequent exploratory laparotomy and evacuation of fecal peritonitis and removal of infected mesh, lysis of adhesions with resection of a long segment of ischemic and perforated ilium with an end ileostomy formation and mucous fistula formation, gastrostomy tube placement, primary closure of hernia defect on 05/28/2016 and underwent exploratory laparotomy with washout of peritoneal cavity with bacitracin solution and tracheostomy on 06/11/2016 for intraabdominal sepsis and ventilator dependent. The patient has had multiple medical issues throughout her hospital stay and has been seen by Nephrology for hyperkalemia, pulmonology station mechanic for tachypnea with compensated metabolic acidosis and adequate oxygenation and for ICU management and has also been seen by a neurocritical care physician for hyperbilirubinemia, most likely secondary to postoperative jaundice with a combination of sepsis, blood transfusions and TPN. Neurology was asked to evaluate as the patient has had altered mental status for 3 to 4 days and was actually not waking up and following commands. However, through the night, she has improved and has been quite restless this morning. She was switched the last week from propofol to as needed fentanyl and morphine. Her son arrived yesterday and noted to us this morning that she does have an intolerance to morphine and has ""hallucinations and mental status changes." Upon evaluation today, she is much more alert than she was over the last few days. She is moving all extremities spontaneously. She grimaces. She pulls away. She is purposeful in moving her extremities, but she does not follow commands verbally. She had a head CT done on 06/08/2016 without contrast that showed no acute intracranial abnormality. It showed atrophy and mild, Unit #: [id number] #: [id number] Patient: NEHEMIAH BOWENS probably small vessel disease, atherosclerotic vascular calcifications. The patient is unable to contribute to review of systems as she is still intubated. PAST MEDICAL HISTORY 1. Admission to [facility] in 2016 for colostomy reversal. 2. Iatrogenic colon perforation with colostomy and colostomy reversal. 3. Hypertension. 4. Hyperlipidemia. 5. Diabetes mellitus. 6. GERD. 7. Exploratory laparotomy. 8. Colostomy with subsequent reversal. 9. Vein stripping. 10. Ventral hernia repair. FAMILY HISTORY Positive for hypertension. SOCIAL HISTORY The patient lives with her sister. No history of tobacco use, alcohol use, or illicit drug use. 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 ALLERGIES No known drug allergies. HOME MEDICATIONS Include lisinopril, fenofibrate, Nexium, Levsin, fish oil, Centrum, famotidine, Glucophage, metoprolol, amlodipine. Hospital medications are as per chart and have been reviewed. REVIEW OF SYSTEMS Unable to obtain from the patient given her medical condition and mental status. PHYSICAL EXAMINATION VITAL SIGNS: Temperature 102.1, pulse 126, respirations 20, blood pressure 128/55. She has had some episodes of hypotension with systolic into the low 90s, but nothing lower than that. She has otherwise remained normotensive. Oxygen saturation 96% on the ventilator. Height 5 feet 3 inches, weight 143 pounds, BMI not noted. NEUROLOGIC: The patient is receiving p.r.n. sedation. She has not received any at the time of my exam. She is restless. She is grimacing. She is pulling away, moving all extremities spontaneously and equally with neurologic exam limited. She is not following commands. Cranial nerve exam, she responds to threats in the primary visual osborn. She closes her eyes very tightly, making it difficult to open them, though when I do, she does respond to threats. Pupils are reactive and equal. Extraocular movements appear to be intact. Unable to assess sensation of face and scalp, strength of the muscles of facial expression, both grimace, she appears to be equal with no asymmetry seen. Hearing is unable to be assessed. Tongue, uvula, or palate are unable to be assessed. Head turning is unremarkable spontaneously. Neck is supple. Motor exam, she moves all extremities equally and spontaneously. She does Unit #: [id number] #: [id number] Patient: NEHEMIAH BOWENS not follow commands. Sensory exam, unable to assess. Gait and Romberg, unable to assess. Reflexes, unable to assess as the patient's restless. Toes are unable to be assessed. Coordination, unable to assess. DIAGNOSTIC STUDIES Please see above. LABORATORY RESULTS: Arterial blood gas; pH of 7.454, pCO2 of 30, pO2 of 149, bicarb 21.1, on AC of 20, 40% FiO2. Sodium 138, potassium 4.2, chloride 112, CO2 of 23, glucose 180, BUN 25, creatinine 0.9, estimated GFR above 60, calcium 8.2. AST 56, ALT 20, alkaline phosphatase 147, total protein 6.1, albumin 1.5, phosphorus 3.3, and magnesium 1.7. White blood cell count 13.2, hemoglobin 7.3, hematocrit 22.7, and platelet count is 541. Other labs and studies are as per chart have been reviewed. IMPRESSION 1. Altered mental status, suspect toxic and metabolic encephalopathy in a patient with multiple acute on chronic medical issues with extensive ICU stay, consider modification of facts, but must consider other multiple comorbidities. 2. Status post ventral hernia repair, exploratory laparotomy. 3. Tracheostomy placement. 4. Left lower lobe pneumonia per Pulmonology. 5. Klebsiella sepsis secondary to Klebsiella pneumonia. 6. Acute kidney injury, resolved. 7. Recommend changing pain medications, which has been done. Discussed with Dr. Campa as well at the time of my evaluation. We will repeat scan when the patient is able. Nothing at this time to suggest an acute primary neurologic etiology, but recommend repeating CT scan when the patient is able versus MRI to rule out any hypoxic or anoxic etiology, but suspect this is likely toxic and metabolic etiology of encephalopathy, but we will follow the patient very closely with you, re-evaluate neurologically when the patient is more able and repeat imaging when possible. Please call for any questions or issues. We thank you very much for allowing us to assist in the care of this patient. Dictated by... Fredy Field/hernandez TD: 06/13/2016 08:58 JOB #: [id number] CONSULTATION REPORT Page 1 of 1 X Nanci Echols APRN X CONSULTATION REPORT
--- NOTE | ~2016-05-24 | FU ---
[facility] Nutrition Therapy DATE: 06/17/16 Patient: NEHEMIAH BOWENS Physician: BREEZY Address: [address] [place] [address] Room/Bed: [address], Zip: [place] [id number] Admit Date: 05/24/16 Date of : 45 Height: 5 0 Weight: 151 68.8 NUTRITION MONITORING/FOLLOW-UP: Reason: Follow up and consult RE: Re-eval TF recs, when pt at goal D/C TPN Anthropometrics: Ht: 60" Adm wt: 59.1 kg BMI: 25.4 Wt 06/17: 68.8 kg Labs: Gluc 133 Creat 0.5 Ca++ 7.7 Alb 1.4 Accuchecks 135 Prealb 12.6 Meds: Levaquin (IV), fentanyl, MgSO4, KCl, pepcid , TPN @ 60 mL/hr, novolog, phenergan I&O's: 1923/1280, last BM 06/16 Skin: Reviewed, no changes since previous assessment Edema: BUE/ Hands/ trunk/ abdomen- generalized Estimated Nutrition Needs: 6551-4040 kcals (25-30 kcals/kg) 88-118 grams protein (1.5-2.0 grams/kg) Assessment: Chart reviewed, events noted. Pt remains intubated in the ICU, still receiving TPN which has been decreased to 60 mL/hr. Enteral nutrition was discontinued on Friday due to the pt's incision draining what seemed to be stool and enteral nutrition per RN report (on Friday at rounds). Since then, enteral nutrition has been resumed and Vital 1.5 is at 30 mL/hr + Prostat BID. RN reports that the pt is tolerating this with minimal residuals. 3-5 cc residuals were noted last night per shift assessment. Please note, the pt's nutrient needs are being exceeded with TPN + enteral nutrition. RD consulted to re-eval goal rate, and to discontinue TPN once enteral nutrition is at goal. Recommendations remain the same from previous RD assessment (re-stated below). RD informed RN of recommended goal rate, and RN reports enteral nutrition will be increased to goal of 45 mL/hr today. Dx: Increased nutrient needs RT increased metabolic demand/ wound healing AEB recent abdominal surgery, delayed wound healing- ACTIVE Intervention: 1. TPN @ 60 mL/hr- recommend to D/C 2. Enteral nutrition Monitoring, Evaluation and Goals: 1. Enteral nutrition; provide>80% goal volume x 24 hrs [facility] Nutrition Therapy DATE: 06/17/16 Patient: NEHEMIAH BOWENS Physician: BREEZY Address: [address] [place] [address] Room/Bed: [address], Zip: [place] [address] Admit Date: 05/24/16 Date of : 45 Height: 5 0 Weight: 151 68.8 2. TPN; wean 3. Labs; WNL 4. Promote wound healing Recommendations: 1. Recommend weaning TPN per pharmacy dosing, as enteral nutrition regimen is now meeting >70% of the pt's estimated nutrient needs. Please note, combination of TPN + EN is exceeding the pt's nutrient needs at this time. 2. Increase Vital 1.5 to goal of 45 mL/hr + Prostat BID to provide: 1820 kcals/ 103 grams protein/ 821 mL free H20 3. Add Merrill BID to the pt's enteral regimen in order to promote wound healing. Status: Pt is at moderate-severe nutritional risk. RD will continue to follow. Respectfully, JEROME ORTEGA RD, LD Food and Nutritional Services [facility] cc: client file
--- NOTE | ~2016-05-24 | FU ---
[facility] Nutrition Therapy DATE: 06/07/16 Patient: NEHEMIAH BOWENS Physician: BREEZY Address: [address] [place] [address] Room/Bed: [address], Zip: [place] [address] Admit Date: 05/24/16 Date of : 45 Height: 5 0 Weight: 148 67.5 NUTRITION MONITORING/FOLLOW-UP: Reason: TPN follow up/ enteral nutrition assessment Anthropometrics: Ht: 60" ADm wt: 59.1 kg BMI: 25.4 Wt 06/07: 67.5 kg Labs: Na+ 128 Gluc 149 BUN 31 Ca++ 8.1 Alb 1.9 AST 43 Accuchecks 125-151 Trig 213 Amylase 212 Lipase 264 Bili 6.4 Meds: TPN @ 80 mL/hr, MgSO4, KCl, pepcid, D5%, levophed, novolog, phenergan I&O's: 2749/3390, last BM 06/07, PEG, Ileostomy RLQ, 220 mL G tube output x 24 hrs Skin: Abdominal wounds remains open Jaundiced skin Edema: Trace BL hands/ arms Estimated Nutrition Needs: 1714-7798 kcals (25-30 kcals/kg) 88-118 grams protein (1.5-2.0 gams/kg) Assessment: Chart reviewed, events noted. Pt remains intubated in the ICU. Pt continues to receive TPN @ 80 mL/hr. Edema improved and renal issues resolved per renal note in chart. Of note, the pt has elevated triglcerides, amylase, lipase, ammonia, bilirubin and glucose as noted above. Pt has jaundiced skin per RN report/ RD observation. (surgery) wrote for enteral nutrition to start at 25 mL/hr with RD recommendation for formula. Also ordered to check residuals q 4 hrs and hold enteral nutrition if >150 mL. Please see recommendations below. Dx: Increased protein needs RT recent surgery, abdominal incision AEB open abdominal wound/ incision, delayed wound healing.- ACTIVE Intervention: 1. Enteral nutrition 2. TPN Monitoring, Evaluation and Goals: 1. Enteral nutrition; provide >80% goal volume x 24 hrs as medically feasible 2. Nutrition/ TPN; provide >80% of the pt's estimated nutrient needs 3. Labs; WNL: electrolytes, LFTs, trig, amylase, lipase, bili, glucose [facility] Nutrition Therapy DATE: 06/07/16 Patient: NEHEMIAH BOWENS Physician: BREEZY Address: [address] [place] [address] Room/Bed: CICCU3-22 [facility], Zip: [place] [address] Admit Date: 05/24/16 Date of : 45 Height: 5 0 Weight: 148 67.5 4. Skin; promote healing 5. Weight; preserve lean body mass, prevent weight loss 6. GI; promote regular GI function Recommendations: 1. Continue TPN @ 80 mL/hr. 2. Once medically feasible, initiate enteral nutrition with Vital 1.5 @ 15 mL/hr + Prostat BID. Increase by 10 mL q 24 hrs as tolerated to goal of 45 mL/hr + Prostat BID. This will provide: 1820 kcals/ 103 grams protein/ [address] recommending to start at low rate and increase gradually due to recent abdominal surgery. Once the pt is tolerating enteral nutrition add Merrill BID for wound healing support. This will provide an additional 140 kcals daily. 3. Once the pt is tolerating Vital 1.5 @ 25 mL/hr, gradually wean and discontinue TPN per MD/ pharmacy orders. Continue to monitor electrolytes, glucose, triglycerides, and fluid status closely Status: Pt is at moderate-severe nutritional risk. RD will continue to follow. Respectfully, JEROME ORTEGA RD, LD Food and Nutritional Services [facility] cc: client file
--- NOTE | ~2016-05-24 | FU ---
[facility] Nutrition Therapy DATE: 06/20/16 Patient: NEHEMIAH BOWENS Physician: BREEZY Address: [address] [facility] Room/Bed: [address], Zip: [place] [phone] Admit Date: 05/24/16 Date of : 45 Height: 5 0 Weight: 154 70 NUTRITION MONITORING/FOLLOW-UP: Reason: Follow up Anthropometrics: Ht: 60" Adm wt: 59.1 kg BMI: 25.4 Wt 06/20: 70 kg Labs: Gluc 126 Creat 0.5 Alb 1.5 AST 61 Mg++ 1.2 Prealb 13.0 Meds: Levaquin (IV), fentanyl, MgSO4, KCl, pepcid (IV), novolog, phenergan I&O's: 3117/3800, last BM 06/20, abdomen firm and distended per shift assessment Skin: PEG/ drain site to left abdomen, still jaundiced No other changes noted Edema: BL hands and arms 1+ Estimated Nutrition Needs: 4822-3454 kcals (25-30 kcals/ kg) 88-118 grams protein (1.5-2.0 grams/kg) Assessment: Chart reviewed, events noted. Pt remains intubated in the ICU. Pt is tolerating enteral nutrition with Vital 1.5 @ 45 mL/hr + Prostat BID and Merrill BID. Per pump history, the pt has received 94% goal volume of enteral nutrition over the last 48 hrs. Stool is being checked for C.diff per MD note. Dx: Increased nutrient needs RT increased metabolic demand/ wound healing AEB recent abdominal surgery, delayed wound healing- ACTIVE Intervention: 1. Enteral nutrition Monitoring, Evaluation and Goals: 1. Enteral nutrition; continue to provide >80% goal volume x 24 hrs 2. Labs; WNL: glucose, electrolytes, AST 3. Weight; prevent weight loss, preserve lean body mass 4. Skin; promote healing Recommendations: 1. Continue current enteral regimen with Vital 1.5 @ 45 mL/hr + 30 mL Prostat BID and Merrill BID as tolerated. [facility] Nutrition Therapy DATE: 06/20/16 Patient: NEHEMIAH BOWENS Physician: BREEZY Address: [address] [place] [address] Room/Bed: [facility] [facility], Zip: [place] [address] Admit Date: 05/24/16 Date of : 45 Height: 5 0 Weight: 154 70 2. Continue to monitor for symptoms of enteral intolerance and residuals per protocol. 3. If the pt is extubated, recommend SIGNING AGENT evaluation. Status: Pt is at moderate nutritional risk. RD will continue to follow. Respectfully, JEROME ORTEGA RD, LD Food and Nutritional Services [facility] cc: client file
--- NOTE | ~2016-05-24 | XA75 ---
[facility] A Service of [facility] & [facility] RADIOLOGY TEXT RESULTS PATIENT: NEHEMIAH BOWENS LOCATION: [address] : [birth year] UNIT #: [id number] AGE: [address]: Shon Prather MD SEX: F ORDER DR: [id number] [place] [id number] [facility] [place] [facility]. [place], [place] [address] [id number] I MR#: [id number] Acc #: [id number] NAME: NEHEMIAH BOWENS. : 1945 SEX: F STUDY DATE/TIME: 05/27/2016 16:09 UNIT: [facility] ROOM: [facility] STUDY DESCRIPTION: XA CVC Non-Tunnel Attending Physician: Shon Prather Jr., M.D. Ordering Physician: David Bro Jr., M.D. Primary Care Physician: Jared Johnson D.O. MEDICAL IMAGING REPORT This report is preliminary unless electronic signature is present EXAM Dialysis catheter insertion, 05/27/2016. HISTORY Renal failure. PROCEDURE Informed consent was obtained. Full-standard sterile technique was utilized, including sterile preparation, draping, caps, gowns, gloves, and masks, and real-time sterile ultrasound guidance was used, both to guide venous access and confirm vessel patency of the internal jugular vein. After local anesthesia, standard Seldinger technique was utilized to access the jugular vein, guidewire passed, the tract dilated, and a Shiley catheter inserted and affixed to the skin with its lower tip in the right atrium. Total flouro time 0.4 minutes with 1 fluoroscopic spot image. A static ultrasound image was preserved, as well. IMPRESSION Successful ultrasound and fluoroscopically guided insertion of a right IJ Shiley-type dialysis catheter. Dictated by... Srikanth Rees M.D. THIS IS AN ELECTRONICALLY VERIFIED REPORT Srikanth Rees M.D. at 06/03/2016 5:10 PM TEV/alban TD: 06/01/2016 09:52 STS. [facility] A Service of [facility] & [facility] RADIOLOGY TEXT RESULTS PATIENT: NEHEMIAH BOWENS LOCATION: [place] [address]-22 : 45 UNIT #: [id number] AGE: [address]: Shon Prather MD SEX: F ORDER DR: JOB #: [id number] MEDICAL IMAGING REPORT COPY
--- NOTE | ~2016-05-24 | CT4 ---
[facility] A Service of [facility] & [facility] RADIOLOGY TEXT RESULTS PATIENT: NEHEMIAH BOWENS LOCATION: [address]- : [birth year] UNIT #: [id number] AGE: [address]: Shon Prather MD SEX: F ORDER DR: [id number] [facility] [address] [facility]. [place], [place] [address] [id number] I MR#: [id number] Acc #: [id number] NAME: NEHEMIAH BOWENS. : 1945 SEX: F STUDY DATE/TIME: 06/15/2016 17:44 UNIT: [facility] ROOM: [facility] STUDY DESCRIPTION: CT Abd and Pelv Wo Cont Attending Physician: Shon Prather Jr., M.D. Ordering Physician: Rebeka Vásquez D.O. Primary Care Physician: Jared Johnson D.O. MEDICAL IMAGING REPORT This report is preliminary unless electronic signature is present EXAM CT abdomen and pelvis without contrast. HISTORY Status post surgery for a ventral hernia, 05/24/2016. Persistent fever. History of recent ventral hernia repair and bowel perforation. COMPARISON STUDIES CT abdomen and pelvis, 06/08/2016. TECHNIQUE Axial images performed through the abdomen and pelvis without contrast. Multiplanar reconstructed images reviewed at a workstation. This CT exam was performed with one or more of the following radiation dose reduction techniques: automatic exposure control, adjustment of mA and/or kV according to patient size, and iterative reconstruction. FINDINGS ABDOMEN: Lung bases demonstrate bilateral pleural effusions layering to a depth of about 2 cm on the right and about 3 cm on the left with compressive atelectasis. Air bronchograms in the right and left lung bases could represent some focal pneumonia. Mild cardiomegaly. Liver and spleen unremarkable. The patient is post cholecystectomy. Kidneys and adrenal glands unremarkable. There is a G-tube within the stomach. Diffuse mesenteric edema throughout the abdomen with stranding and questionable bowel wall thickening involving the visualized small bowel. Colon demonstrates some residual positive contrast. There are 2 fluid collections, both in the left midabdomen measuring 5.3 x 4 cm and 2.6 x 3.6 cm respectively. These appear decreased in size when compared to the 06/08/2016 study. Differential would include abscesses or sterile fluid collections. Ostomy STS. [facility] A Service of [facility] RADIOLOGY TEXT RESULTS PATIENT: NEHEMIAH BOWENS LOCATION: [facility] CICCU3-22 : 45 UNIT #: [id number] AGE: [address]: Shon Prather MD SEX: F ORDER DR: site is seen in the right lower abdomen. Aorta and IVC unremarkable. PELVIS: The bladder is decompressed with a Petersen catheter in place. The uterus unremarkable. A moderate amount of gas is seen within the bladder, nonspecific. Degenerative change lower lumbar spine. There is extensive edema and induration involving the left lower anterior abdominal wall with an area of confluent edema measuring 2.9 x 7.7 x approximately 5.8 cm. This may represent a postoperative seroma, hematoma, or abscess. This also shows interval decrease when compared to 06/08/2016 CT scan. Again, extensive induration of the anterior mesentery. IMPRESSION 1. The study is limited due to lack of IV and oral contrast, particularly in the setting of possible infection and multiple gastrointestinal surgeries. 2. Bilateral pleural effusions and bibasilar atelectasis and/or infiltrates. 3. Extensive mesenteric edema throughout the visualized abdomen and pelvis, nonspecific, but could imply inflammatory process or postsurgical in nature. Two fluid collections are seen in the left mid abdomen which could represent sterile fluid collections or abscesses, but these appear to have decreased when compared to the 06/08/2016 study. 4. Extensive edema and induration within the left anterior abdominal wall. This is nonspecific may represent cellulitis. The suspected fluid collection measures up to 7.7 cm but appears to have decreased in size when compared to prior studies. Again, this could represent a seroma or abscess. 5. G-tube and Petersen catheter in expected position. 6. Generalized body wall edema, nonspecific, but could be related to third spacing of fluid. Dictated by... Akin Villarreal M.D. THIS IS AN ELECTRONICALLY VERIFIED REPORT Akin Villarreal M.D. at 06/16/2016 10:52 PM BOBBI/myesha TD: 06/16/2016 09:42 JOB #: [id number] MEDICAL IMAGING REPORT Page 1 of 1 COPY
--- NOTE | ~2016-05-24 | EKG ---
PATIENT: NEHEMIAH BOWENS UNIT #: [id number] Ventricular Rate: 107 BPM Atrial Rate: 107 BPM P-R Interval: 170 ms QRS Duration: 80 ms Q-T Interval: 316 ms QTC Calculation(Bezet): 421 ms P Pollock: 20 degrees Calculated R Pollock: 45 degrees Calculated T Pollock: 39 degrees Diagnosis Line: Sinus tachycardia Diagnosis Line: Low voltage QRS Diagnosis Line: Borderline ECG Diagnosis Line: When compared with ECG of 16-MAY-2016 13:19, Diagnosis Line: Vent. rate has increased BY 38 BPM Diagnosis Line: Confirmed by MIKE MOLINA MD ([id number]) on Diagnosis Line: 05/28/2016 4:08:33 PM INTERPRETING MD: TRACY TRIVEDI
--- NOTE | ~2016-05-24 | CR72 ---
[facility] A Service of [facility] & [facility] RADIOLOGY TEXT RESULTS PATIENT: NEHEMIAH BOWENS LOCATION: [address] : [birth year] UNIT #: [id number] AGE: [address]: Shon Prather MD SEX: F ORDER DR: [id number] [facility] [address] [facility]. [place], [place] [address] [id number] I MR#: [id number] Acc #: [id number] NAME: NEHEMIAH BOWENS. : 1945 SEX: F STUDY DATE/TIME: 06/01/2016 5:10 UNIT: [facility] ROOM: [facility] STUDY DESCRIPTION: CR Chest Single View Portable Attending Physician: Shon Pratehr Jr., M.D. Ordering Physician: Eliu Mackenzie M.D. Primary Care Physician: Jared Johnson D.O. MEDICAL IMAGING REPORT This report is preliminary unless electronic signature is present EXAM AP portable chest. DATE OF EXAM 06/01/2016 at 05:10. HISTORY Follow up respiratory failure. Shortness of breath. Symptoms began 06/07/2016. FINDINGS Low volume inspiration. Mild bibasilar atelectasis is present, slightly improved on the right since the prior exam. No new airspace disease. Stable heart size. ET tube, left subclavian central line and right IJ central line each appears stable in position. No visible pneumothorax. Degenerative changes of the right acromioclavicular joint unchanged. Previously described small bilateral pleural effusions less conspicuous, although, a trace left pleural effusion is thought to be present. IMPRESSION 1. Interval improvement in bibasilar atelectasis, particularly on the right compared to 05/31/2016. Right pleural effusion appears diminished or resolved as well, with small left effusion remaining. 2. No visible pneumothorax. Dictated by... Angela Moyer M.D. THIS IS AN ELECTRONICALLY VERIFIED REPORT Angela Moyer M.D. at 06/02/2016 9:59 PM [facility] A Service of [facility] & [facility] RADIOLOGY TEXT RESULTS PATIENT: NEHEMIAH BOWENS LOCATION: [facility] CICCU3-22 : 45 UNIT #: [id number] AGE: [address]: Shon Prather MD SEX: F ORDER DR: TD: 06/01/2016 23:52 JOB #: [id number] MEDICAL IMAGING REPORT COPY
--- NOTE | ~2016-05-24 | A ---
[facility] Nutrition Therapy DATE: 05/29/16 Patient: NEHEMIAH Carmichael GOGO Physician: BREEZY Address: [address] [place] [address] Room/Bed: [address], Zip: [place] [address] Admit Date: 05/24/16 Date of : 45 Height: 5 0 Weight: 158 72 NUTRITIONAL ASSESSMENT: REASON: NPO STATUS IN ICU/ TPN ASSESSMENT 70 YO FEMALE ADMITTED FOR VENTRAL HERNIA PMH: Iatrogenic colon perforation with colostomy and colostomy reversal, HTN, HLD, DM, GERD, exploratory laparatomy, hernia repair Anthropometrics: Ht: 60" Wt: 59.1 kg (per family report, variable weights in [facility]) BMI: 25.4 Labs: Na+ 146 Cl- 119 Ca++ 6.8 Alb 1.2 AST 51 Mg++ 1.5 Phos 1.7 Accuchecks 104 Prealb 3.5 GFR 47.2 Meds: NaCl, propofol @ 6.8 mL/hr, D5%, sodium bicarbonate, levophed, novolog, pepcid, phenergan I/O & Bowel function: 6520/355, last BM 05/24 RUQ- ileostomy RLQ- mucous fistula Skin Integrity: Closed surgical incision abdomen Open incision to abdomen s/p ileostomy Edema: BLE trace BUE- generalized Abdomen Estimated Nutrition Needs: 8228-0662 kcals (25-30 kcals/kg) 88-106 grams protein (1.5-1.8 grams/kg) Assessment: Chart reviewed, events noted. Pt was admitted for ventral hernia, now s/p ventral hernia repair. Pt had CT of the abdomen, which revealed abnormalities per CT report in [facility]. Pt is now POD#1 for ex lap, resection of ischemic and perforated segment of the ileum, and end ileostomy and mucous fistula formation. Pt is now intubated and sedated post-op in the ICU. Propofol is providing an additional 180 kcals from propofol at this time. ordered TPN per Pharmacy/ RD. Of note, the pt has low Phos and Mg++ noted above. RD spoke with the pt's family member at bedside. Pt's family reports that the pt weighed [facility] Nutrition Therapy DATE: 05/29/16 Patient: NEHEMIAH BOWENS Physician: BREEZY Address: [address] [facility] Room/Bed: [address], Zip: [place] [address] Admit Date: 05/24/16 Date of : 45 Height: 5 0 Weight: 158 72 ~130# prior to admission. Weights in [facility] range from 125#-158#. Pt's family member also reports that the pt was eating prior to admission and being "careful" about what she ate so she would not upset her stomach. Family believes the pt has lost weight; however, he was unsure about amount or time frame of weight loss. Please see recommendations below. Dx: Inadequate protein-energy intake RT clinical condition AEB intubated, TPN ordered, NPO. Intervention: 1. TPN Monitoring, Evaluation and Goals: 1. Nutrition; provide >80% of the pt's nutritional needs 2. Labs; WNL: electrolytes, triglycerides, glucose 3. Weight; prevent weight loss, promote maintenance of lean body mass 4. Skin; promote healing 5. GI; promote regular GI function Recommendations: 1. Replete electrolytes to WNL (Phos and Mg++ low as noted above). 2. Recommending TPN with 15% dextrose solution to prevent excessive carbohydrate administration and to meet the pt's protein needs. Once medically feasible, initiate TPN (15% dextrose, 5% Amino acids) with dosing per Pharmacy. Recommend starting at a low rate and increasing gradually to goal of 85 mL/hr. TPN (15% dextrose, 5% AAs) @ 85 mL/hr will provide: 1040 kcals dextrose + 408 kcals from protein= 1448 kcals + kcals from propofol = 1628 kcals total/ 102 grams protein GUR= 3.6 3. Obtain triglyceride level in order to determine lipid cycling. If the pt's triglycerides are WNL, recommend cycling lipids every other day in order to prevent fatty acid deficiency. This would provide an additional 250 kcals on days lipids are cycled. 4. Monitor electrolytes, glucose, and fluid status closely. 5. Once the pt is extubated, start clear liquids (as tolerated) if pt passes BOTANY TEACHER evaluation and deemed appropriate per surgical team. [facility] Nutrition Therapy DATE: 05/29/16 Patient: NEHEMIAH BOWENS Physician: BREEZY Address: [address] [place] [address] Room/Bed: [address], Zip: [place] [address] Admit Date: 05/24/16 Date of : 45 Height: 5 0 Weight: 158 72 Pt is at severe nutritional risk. RD will follow closely. Respectfully, JEROME ORTEGA RD, LD Food and Nutritional Services [facility] cc: client file
--- NOTE | ~2016-05-24 | CO ---
Unit #: [id number] #: [id number] Patient: NEHEMIAH BOWENS [id number] [address] [place], [place] [address] [id number] I MR#: [id number] NAME: NEHEMIAH BOWENS ROOM: [facility] Age: 70 Sex: F Admission Date: 05/24/2016 : 1945 Attending Physician: Shon Prather Jr., M.D. Primary Care Physician: aJred Johnson D.O. Consultation Date: 05/27/2016 CONSULTATION REPORT REASON FOR CONSULTATION Hyperkalemia. HISTORY OF PRESENT ILLNESS The patient is a 70-year-old female with past medical history of hypertension, hyperlipidemia, diabetes, GERD who was admitted by Dr. Prather on May 24, 2016 for abdominal pain. The patient underwent ventral hernia repair with lysis of adhesions on May 24, 2016. A comprehensive metabolic panel on May 25, 2016, was notable for glucose of 182, BUN and creatinine of 23 and 1.2 respectively. Today, the patient had a basic metabolic panel that showed a sodium of 123, potassium 7.1, chloride 99, bicarbonate 20, BUN and creatinine 36 and 1.8 respectively. HIPS was consulted for the hyperkalemia. The patient is also on lisinopril which could be contributing. Additionally, she was receiving fluids with 20 mEq of potassium. At the time of my evaluation, the patient has a NG tube in place. It was just placed this morning with return of 400 mL of fluid. The patient denies any chest pain. She was having some trouble breathing but that appears to have resolved. She denies any cough. She states that she has not had a bowel movement. She has not passed any gas. She denies any urine problems. There is no urinalysis in [facility]. She denies ever being told that she has any kidney problems. Dr. Prather ordered Lasix. Additionally, I have given the patient an amp of calcium gluconate, an amp of bicarbonate, 10 units of insulin, an amp of D50, as well as, a DuoNeb. Dr. Callejas has already been consulted as well. I spoke with Dr. Bro on the phone. PAST MEDICAL HISTORY 1. Admission to [facility] March 19 through December 27, 2015, for colostomy reversal. 2. Iatrogenic colon perforation with colostomy and colostomy reversal. 3. Hypertension. 4. Hyperlipidemia. 5. Diabetes. 6. GERD. PAST SURGICAL HISTORY 1. Exploratory laparotomy. 2. Colostomy with subsequent reversal. 3. Vein stripping. 4. Ventral hernia repair. SOCIAL HISTORY The patient lives with her sister. There is no tobacco or alcohol use. Unit #: [id number] #: [id number] Patient: NEHEMIAH BOWENS FAMILY HISTORY Notable for both parents having hypertension. ALLERGIES None. HOME MEDICATIONS 1. Lisinopril. 2. Fenofibrate. 3. Nexium. 4. Levsin. 5. Fish oil. 6. Centrum. 7. Famotidine. 8. Glucophage. 9. Metoprolol. 10. Amlodipine. REVIEW OF SYSTEMS A complete review of systems was negative except as indicated in the HPI. DIAGNOSTIC STUDIES LABORATORY: Basic metabolic panel from today shows sodium of 123, potassium 7.1, chloride is 99, bicarbonate 20, glucose 130, BUN and creatinine 36 and 1.8 respectively. Calcium is 8.2. Comprehensive metabolic panel from May 25 was notable only for glucose of 182, BUN and creatinine 23 and 1.2 respectively. Complete blood count from this morning notable for hemoglobin and hematocrit of 9.3 and 26.7 respectively. PHYSICAL EXAMINATION VITAL SIGNS: Temperature is 98.1, pulse 102, respirations last charted at 40 (I would say she is around 20 now), blood pressure 176/84, oxygen saturation 99% on 2 L. GENERAL: The patient is awake and alert, in no acute distress. HEENT: The head is atraumatic. A NG tube is in place. Mucous membranes are dry. NECK: Supple. Trachea is midline. CARDIOVASCULAR: Regular rate and rhythm. LUNGS: Relatively clear to auscultation bilaterally with no increased work of breathing. ABDOMEN: Distended with decreased bowel sounds. She is tender to palpation throughout. EXTREMITIES: Nontender with no pedal edema. NEUROLOGIC: The patient is awake and alert. She is oriented x3. She follows commands. PSYCHIATRIC: Mood and affect are normal. The patient is cooperative. SKIN: Skin of examined areas is warm and dry. ASSESSMENT The patient is a 70-year-old female with: 1. Postoperative day #3 status post ventral hernia repair. 2. Hyperkalemia: The patient was receiving fluids with potassium. She is also on lisinopril which could be contributing. She has received Lasix, calcium gluconate, bicarbonate, insulin, D50, as well as, a DuoNeb. Dr. Bro has also been consulted. 3. Acute kidney injury: The patient's creatinine was 1.2 on May 25, 2016. It is 1.8 today. 4. Hyponatremia: I suspect hypovolemic in etiology. There is also Unit #: [id number] #: [id number] Patient: NEHEMIAH BOWENS concern for possible perforated viscous. The patient is going to radiology for imaging. 5. Normocytic anemia: The patient's hemoglobin was 7.9 on May 26, 2016. It is 9.3 today. 6. Hypertension. 7. Hyperlipidemia. 8. Diabetes. 9. Gastroesophageal reflux disease. PLAN Regarding hyperkalemia, the patient has received the interventions as stated above. I have discussed this patient with Dr. Bro who agrees to see her in consultation. I have ordered a STAT basic metabolic panel to followup hyperkalemia and acute kidney injury. I have also held lisinopril and changed fluid. Will also check urinalysis with culture and sensitivity as well as urine studies and continue to monitor the patient closely. I have also ordered an EKG STAT, and the patient is currently on a monitored bed. Thank you very much for the consultation. We will follow patient along closely with you. Dictated by... Franci Rivero M.D. Humaira TD: 05/27/2016 10:52 JOB #: [id number] CONSULTATION REPORT X Franci Rivero MD X CONSULTATION REPORT
--- NOTE | ~2016-05-24 | CR72 ---
[facility] A Service of [facility] & [facility] RADIOLOGY TEXT RESULTS PATIENT: NEHEMIAH BOWENS LOCATION: [address]- : [birth year] UNIT #: [id number] AGE: [address]: Shon Prather MD SEX: F ORDER DR: [id number] [facility] [address] [facility]. [place], [place] [address] [id number] I MR#: [id number] Acc #: [id number] NAME: NEHEMIAH BOWENS. : 1945 SEX: F STUDY DATE/TIME: 05/31/2016 04:59 UNIT: [facility] ROOM: [facility] STUDY DESCRIPTION: CR Chest Single View Portable Attending Physician: Shon Prather Jr., M.D. Ordering Physician: Eliu Mackenzie M.D. Primary Care Physician: Jared Johnson D.O. MEDICAL IMAGING REPORT This report is preliminary unless electronic signature is present EXAM Portable chest, 05/31 at 04:59. INDICATIONS Respiratory failure. Shortness of air. FINDINGS AP portable chest is compared with 05/30/2016. Tubes and lines are unchanged. Heart size stable. Small bilateral pleural effusions are stable. Bibasilar atelectasis or infiltrate is also unchanged. No pneumothorax. Dictated by... Jared Paiz Jr., M.D. THIS IS AN ELECTRONICALLY VERIFIED REPORT Jared Paiz Jr., M.D. at 05/31/2016 12:41 PM JAMARCUSK/bairon TD: 05/31/2016 10:01 JOB #: [id number] MEDICAL IMAGING REPORT COPY
--- NOTE | ~2016-05-24 | CR72 ---
[facility] A Service of [facility] & [facility] RADIOLOGY TEXT RESULTS PATIENT: NEHEMIAH BOWENS LOCATION: [place] [address]- : [birth year] UNIT #: [id number] AGE: [address]: Shon Prather MD SEX: F ORDER DR: [id number] [facility] [address] [facility]. [place], [place] [address] [id number] I MR#: [id number] Acc #: [id number] NAME: NEHEMIAH BOWENS : 1945 SEX: F STUDY DATE/TIME: 06/09/2016 4:48 UNIT: [facility] ROOM: [facility] STUDY DESCRIPTION: CR Chest Single View Portable Attending Physician: Shon Prather Jr., M.D. Ordering Physician: Reese Estrella M.D. Primary Care Physician: Jared Johnson D.O. MEDICAL IMAGING REPORT This report is preliminary unless electronic signature is present EXAM AP portable chest 06/09/2016 HISTORY Respiratory failure. Follow up cardiopulmonary status. TECHNIQUE AP portable chest x-ray. FINDINGS The exam shows no change since yesterday. Persistent left posterior lung base consolidation and more mild right lung base infiltrate. Tiny left pleural effusion. Upper lungs remain clear. Heart size normal. Endotracheal tube and left IJ central line remain in good position. IMPRESSION Stable portable chest radiograph, unchanged since yesterday. Dictated by... Bartolo Murcia M.D. THIS IS AN ELECTRONICALLY VERIFIED REPORT Bartolo Murcia M.D. at 06/10/2016 9:56 PM ELMA/robert TD: 06/10/2016 08:35 JOB #: [id number] MEDICAL IMAGING REPORT COPY
--- NOTE | ~2016-05-24 | CT4 ---
[facility] A Service of [facility] RADIOLOGY TEXT RESULTS PATIENT: NEHEMIAH BOWENS LOCATION: [facility] : [birth year] UNIT #: [id number] AGE: [address]: Shon Prather MD SEX: F ORDER DR: [id number] [facility] [address] [facility]. [place], [place] [address] [id number] I MR#: [id number] Acc #: [id number] NAME: NEHEMIAH BOWENS : 1945 SEX: F STUDY DATE/TIME: 06/21/2016 13:47 UNIT: [facility] ROOM: [facility] STUDY DESCRIPTION: CT Abd and Pelv Wo Cont Attending Physician: Shon Prather Jr., M.D. Ordering Physician: Jared Segura M.D. Primary Care Physician: Jared Johnson D.O. MEDICAL IMAGING REPORT This report is preliminary unless electronic signature is present EXAM CT of abdomen and pelvis without contrast. DATE OF EXAM 06/21/2016 INDICATIONS Ventral hernia repair. Observation for postoperative fluid collection. Followup collection in the abdomen. PROCEDURE Unenhanced CT of the abdomen and pelvis. COMPARISON STUDIES 06/15/2016 TECHNIQUE NOTE: This CT exam was performed with one or more of the following radiation dose reduction techniques: automatic exposure control, adjustment of mA and/or kV according to patient size, and iterative reconstruction. FINDINGS Small bilateral pleural effusions and bibasilar atelectasis. ABDOMEN WITHOUT CONTRAST: Liver, spleen, kidneys, adrenal glands, pancreas show no acute abnormality. Previous hysterectomy. Percutaneous gastrostomy tube has its balloon in the stomach. The bowel loops are nondilated. There is a right mid abdominal ostomy. Postsurgical change in the anterior abdomen. There has been placement of a percutaneous drain into the previously demonstrated left-sided fluid collection. There is some thickening in this region but the fluid collection appears significantly improved. [facility] A Service of [facility] RADIOLOGY TEXT RESULTS PATIENT: NEHEMIAH BOWENS LOCATION: [facility] : [birth year] UNIT #: [id number] AGE: [address]: Shon Prather MD SEX: F ORDER DR: PELVIS WITHOUT CONTRAST: Petersen catheter in the bladder. No aggressive appearing bone lesion. There is a large open abdominal wound which is new compared with the prior. IMPRESSION 1. New large open abdominal wound since the previous study. There has also been placement of a percutaneous drain into the previously demonstrated left-sided subcutaneous collection, with some persistent thickening but overall, the fluid collection is significantly improved since the previous study. 2. No evidence for obstruction. Dictated by... Joni Card M.D. THIS IS AN ELECTRONICALLY VERIFIED REPORT Joni Card M.D. at 06/21/2016 4:51 PM HALINA/louis TD: 06/21/2016 16:17 JOB #: [id number] MEDICAL IMAGING REPORT Page 1 of 1 COPY
--- NOTE | ~2016-05-24 | CO ---
Unit #: [id number] #: [id number] Patient: NEHEMIAH BOWENS [id number] [address] [place], [place] [address] [id number] I MR#: [id number] NAME: NEHEMIAH BOWENS. ROOM: [facility] Age: 70 Sex: F Admission Date: 05/24/2016 : 1945 Attending Physician: Shon Prather Jr., M.D. Primary Care Physician: Jared Johnson D.O. CONSULTATION REPORT HISTORY OF PRESENT ILLNESS Ms. Bowens is a 70-year-old [place] female, who is admitted with abdominal pain and found to have incarcerated ventral hernia. She underwent repair of that and lysis of adhesions. Today, she was noted to be very distended. Does not really complain of shortness of breath, but was breathing fast. Arterial blood gases have been done on room air and reveal a pH of 7.39, pCO2 of 27, pO2 of 75. Chemistries were remarkable for on admission a creatinine of 1.2 which has risen to 1.8, a potassium on admission of 4.8 which has risen to 7.1, a sodium of 137 which has fallen to 123. Her fluid status is about 12.5 L positive. White blood cell count is 8500, hematocrit is 26.7 that had fallen from 31.7 on admission, platelet count was normal. We were asked to see. PAST MEDICAL HISTORY She really does not complain of much shortness of breath. She complains of abdominal pain worse with coughing. Apparently, her abdomen is much more distended at this point in time. She denies any history of lung disease. She does not smoke. She has a history of hypertension, diabetes, gastroesophageal reflux, history of colectomy status post perforation, history of hyperlipidemia. MEDICATIONS She is on lisinopril. ALLERGIES No known allergies. SOCIAL HISTORY No smoking. No alcohol. REVIEW OF SYSTEMS Not possible due to language variant and patient's condition. PHYSICAL EXAMINATION GENERAL: [place] female, moderate distress. VITAL SIGNS: Blood pressure 176/84, pulse is 102, respiratory rate was recorded at 40 initially and now down to about 20, temperature 98. HEENT: Normocephalic and atraumatic. Pupils are equal, round, and reactive. Sclerae nonicteric. Nasal passages patent. Posterior pharynx clear. Mucous membranes dry. NECK: Supple. Trachea midline. No cervical or supraclavicular lymphadenopathy. LUNGS: Clear anteriorly and laterally. CARDIAC: Regular rate and rhythm. Could not appreciate murmur, rub, or Unit #: [id number] #: [id number] Patient: NHEEMIAH BOWENS. ABDOMEN: Very distended with diminished bowel sounds. Sacral and abdominal edema. Some tape salas. EXTREMITIES: Without clubbing, cyanosis, or edema. NEUROLOGIC: Awake, oriented, and moves all extremities. SKIN: Warm and dry. PSYCHIATRIC: Affect, mild distress but calm. DIAGNOSTIC STUDIES LABORATORY RESULTS: As previously noted. IMAGING STUDIES: No chest x-ray has been done yet. IMPRESSION 1. Tachypnea with compensated metabolic acidosis and adequate oxygenation. 2. Acute kidney injury. 3. Hyperkalemia. 4. Hyponatremia. 5. Postoperative incarcerated ventral hernia with lysis of adhesions. 6. Hypertension. 7. Diabetes. 8. Gastroesophageal reflux disease. 9. Hyperlipidemia. PLAN We will check chest x-ray. I agree with calcium, glucose, insulin, and bicarb. We will have Renal to see and evaluate and we will recheck sodium, potassium, and renal function. Placed on SCD hose for DVT prophylaxis. Further recommendations pending this. Dictated by... Moisés Barone/hernandez TD: 05/27/2016 23:40 JOB #: [id number] CONSULTATION REPORT X Eliu Mackenzie MD X CONSULTATION REPORT
--- NOTE | ~2016-05-24 | CR72 ---
[facility] A Service of [facility] & [facility] RADIOLOGY TEXT RESULTS PATIENT: NEHEMIAH BOWENS LOCATION: [place] [address]- : [birth year] UNIT #: [id number] AGE: [address]: Shon Prather MD SEX: F ORDER DR: [id number] [facility] [address] [facility] [place], [place] [address] [id number] I MR#: [id number] Acc #: [id number] NAME: NEHEMIAH BOWENS : 1945 SEX: F STUDY DATE/TIME: 06/03/2016 6:34 UNIT: [facility] ROOM: [facility] STUDY DESCRIPTION: CR Chest Single View Portable Attending Physician: Shon Prather Jr., M.D. Ordering Physician: Davie Griffith M.D. Primary Care Physician: Jared Johnson D.O. MEDICAL IMAGING REPORT This report is preliminary unless electronic signature is present EXAM Portable chest HISTORY Respiratory failure. Follow-up endotracheal tube. FINDINGS Today's portable view of the chest is unchanged from yesterday's study. The left and right central venous catheters and endotracheal tube are in good position. There is minimal basilar atelectasis. Heart size is normal. Dictated by... Dave Snell M.D. THIS IS AN ELECTRONICALLY VERIFIED REPORT Dave Snell M.D. at 06/03/2016 9:51 AM ANASTASIYA/chucho TD: 06/03/2016 09:06 JOB #: [id number] MEDICAL IMAGING REPORT COPY
--- NOTE | ~2016-05-24 | OR ---
Unit #: [id number] #: [id number] Patient: NEHEMIAH BOWENS [id number] [address] [place], [place] [address] [id number] I MR#: [id number] NAME: NEHEMIAH BOWENS ROOM: [facility] Date of Procedure: 05/28/2016 Admission Date: 05/24/2016 Surgeon: Jared Segura M.D. : 1945 Attending Physician: Shon Prather Jr., M.D. Primary Care Physician: Jared Johnson D.O. OPERATIVE REPORT PREOPERATIVE DIAGNOSES Acute surgical abdomen with probable small bowel perforation. POSTOPERATIVE DIAGNOSIS Acute surgical abdomen with probable small bowel perforation. PROCEDURES PERFORMED Exploratory laparotomy, evacuation of fecal peritonitis and removal of infected mesh, lysis of adhesions with resection of a long segment of ischemic and perforated ileum with an end-ileostomy formation and mucous fistula formation, gastrostomy tube placement, and primary closure of hernia defect. ANESTHESIA General endotracheal anesthesia. ESTIMATED BLOOD LOSS 500 mL. INDICATIONS FOR PROCEDURE Ms. Bowens is a 70-year-old female, who has previously undergone a laparoscopic ventral hernia repair and had a change in status today and was evaluated by Dr. Prather. Dr. Prather called me this evening stating that a contrast study had shown the probability of a small bowel leak with free extravasation in the abdominal cavity. Dr. Prather spoke with the family and as I was the surgeon snapper on, I took her to the operating room for exploration. DESCRIPTION OF PROCEDURE The patient was transported from her hospital room to the operating room, and after induction of general endotracheal anesthesia, she was prepped and draped in usual sterile fashion. She was already on antibiotics, had a central line and nasogastric tube and Petersen catheter. SCDs were in place. After being prepped and draped in usual sterile fashion, it should be noted that all previously placed aicha were removed before prepping and draping. Her midline incision was made. We dissected down through the soft tissues and upon entering the peritoneal cavity, she had diffuse fecal peritonitis. Once I got into the peritoneal cavity, we used a Arrieta-tip suction to evacuate a large amount of feculent material. The recently placed mesh was in position, but it was bathed in stool, so it was removed. Once I had opened the entire abdominal cavity, we suctioned out all the free fluid and stool and identified a long segment of ileum Unit #: [id number] #: [id number] Patient: NEHEMIAH BOWENS that was twisted upon itself and had a great number of adhesions and appeared ischemic. It was within this ischemic segment that there were 2 separate perforation, where enteric contents were leaking in the peritoneal cavity. We were able to quickly control these and then finished washing out the abdomen, so we could begin to explore the abdomen. Once we had leakage under control, I sequentially began taking down adhesions and identifying the proximal and distal bowel and taking down all adhesions until I could identify the ligament of Treitz as well as the ileocecal valve. All adhesions were freed up and the bowel was completely freed up and run on several occasions. Proximally, I was able to conserve 140 cm of viable small bowel and distal to the area of ischemia, I was able to preserve approximately 40 cm of viable ileum. The segment in between was ischemic and had perforations, so this area was removed by sequentially clamping, dividing, and ligating the mesentery and removing the segment sending it to the laboratory. After this segment had been removed, I then mobilized and evaluated the entire colon from the rectum at the peritoneal reflection all the way around to the cecum, and the colon appeared intact and healthy. The NG tube was palpated in the stomach and the stomach was intact. I then washed the abdomen out with 4 L of warm saline and suctioned out all the hematoma and residual enteric contents. Sponges and mechanical debridement were also used to remove as much of the nonviable and infected tissue as possible. Once this had been adequately achieved, I then irrigated with a 1 L of bacitracin solution, allowed the bacitracin solution did well for a period of time before removing it. A gastrostomy tube was placed in the left upper quadrant through the anterior abdominal wall into the anterior wall of the stomach. The G-tube site was secured to the anterior abdominal wall with circumferential 2-0 Vicryl sutures to exclude the gastrostomy from the peritoneal cavity. The NG tube was then be removed. After I had run the bowel again, I decided to perform proximal end-colostomy in the right upper quadrant. So, a stoma was formed in the right upper quadrant in the usual fashion. The proximal bowel had excellent blood supply as it was matured with 3-0 Vicryl suture. The distal segment because of its length and having an intact ileocecal valve, I brought up in the right lower quadrant as a mucous fistula by creating a stoma in the usual fashion and then securing the distal ileum with 3-0 Vicryl sutures. After completion of the maturation of the mucous fistula, I closed the fascial defect in the left lower quadrant with #1 Vicryl interrupted sutures. The G-tube was placed to gravity drainage. At this time, the patient's blood pressure was 60/40, so we ordered 2 units of blood and I decided to use #1 looped PDS running suture to close the fascia to speed up the closure. Once the fascia was adequately closed, we irrigated the soft tissue with saline and Betadine and packed the skin open with Kerlix soaked in Betadine and wrung out. Ileostomy bags were placed over the ileum and mucous fistula. Again, the G-tube was placed to gravity drainage. Sponges and needle counts were correct x3. The patient was transported to recovery on pressor agents with a mean arterial pressure greater than 60. I contacted the rubber cutter and shape carver and gave them an update on her condition and wanted transpired in the operating room. I will attempt to contact family to notify them of the findings and postoperative expectations. Dictated by... Moisés Rai/hernandez Unit #: [id number] #: [id number] Patient: NEHEMIAH BOWENS TD: 05/29/2016 03:15 JOB #: [id number] OPERATIVE REPORT X Jared Segura MD X PROCEDURE OPERATIVE NOTE
--- NOTE | ~2016-05-24 | MR18 ---
[facility]. [facility] A Service of [facility] RADIOLOGY TEXT RESULTS PATIENT: NEHEMIAH BOWENS LOCATION: [address] : [birth year] UNIT #: [id number] AGE: [address]: Shon Prather MD SEX: F ORDER DR: [id number] [facility] [address] [place], [place] [address] [id number] I MR#: [id number] Acc #: [id number] NAME: NEHEMIAH BOWENS : 1945 SEX: F STUDY DATE/TIME: 06/14/2016 10:24 UNIT: [facility] ROOM: [facility] STUDY DESCRIPTION: MR Brain Wo Contrast Attending Physician: Shon Prather Jr., M.D. Ordering Physician: Dmitriy Campa M.D. Primary Care Physician: Jared Johnson D.O. MRI CENTER REPORT This report is preliminary unless electronic signature is present. EXAM Brain MRI HISTORY Hallucinations, mental status changes with fever, confusion. Recent ventral hernia surgery with small bowel leak in early May. TECHNIQUE Multiplanar imaging of the brain was performed with short and long TR. FINDINGS On diffusion weighted imaging, there is no evidence of restricted diffusion to suggest a recent infarct. The routine brain images show mild atrophy and mild chronic ischemic changes around the ventricles. There is no evidence of hemorrhage, edema or midline shift. There is a small extraaxial mass over the right frontal convexity measuring 1 cm in diameter without appreciable mass effect unchanged from the head CT of 06/08/2016 likely representing a small incidental meningioma. Extraaxial structures are otherwise remarkable for chronic mastoid air cell inflammatory disease. IMPRESSION 1. Atrophy with mild chronic ischemic changes. No acute findings in the brain. 2. 1 cm extraaxial mass over the right frontal convexity likely representing a small incidental meningioma. 3. 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 STAT * RESULT [facility] A Service of [facility] RADIOLOGY TEXT RESULTS PATIENT: NEHEMIAH BOWENS LOCATION: [address] : [birth year] UNIT #: [id number] AGE: [address]: Shon Prather MD SEX: F ORDER DR: Dictated by... Jared Singletary M.D. THIS IS AN ELECTRONICALLY VERIFIED REPORT Jared Singletary M.D. at 06/14/2016 4:39 PM RLF/fabio TD: 06/14/2016 11:05 JOB #: [id number] MRI CENTER REPORT Page 1 of 1 COPY
--- NOTE | ~2016-05-24 | CR72 ---
[facility] A Service of [facility] RADIOLOGY TEXT RESULTS PATIENT: NEHEMIAH BOWENS LOCATION: [address]- : [birth year] UNIT #: [id number] AGE: [address]: Shon Prather MD SEX: F ORDER DR: [id number] [facility] [address] [facility] [place], [place] [address] [id number] I MR#: [id number] Acc #: [id number] NAME: NEHEMIAH BOWENS. : 1945 SEX: F STUDY DATE/TIME: 06/15/2016 3:48 UNIT: [facility] ROOM: [facility] STUDY DESCRIPTION: CR Chest Single View Portable Attending Physician: Shon Prather Jr., M.D. Ordering Physician: Eliu Mackenzie M.D. Primary Care Physician: Jared Johnson D.O. MEDICAL IMAGING REPORT This report is preliminary unless electronic signature is present EXAM Frontal chest, 06/15/2016. INDICATION Respiratory distress and respiratory failure in a 70-year-old female. TECHNIQUE Frontal chest compared with 06/14/2016. FINDINGS Preexisting tracheostomy tube and left-sided PICC line, not significantly changed. Cardiac silhouette borderline in size and stable. Lung volumes remain low. There is a small left effusion and left basilar atelectasis or infiltrate is unchanged. Atelectasis or faint infiltrate in the right lung base present. No pneumothorax. IMPRESSION No significant change from 06/14/2016. Dictated by... Ken Brown M.D. THIS IS AN ELECTRONICALLY VERIFIED REPORT Ken Brown M.D. at 06/15/2016 10:12 PM SANDRA/myesha TD: 06/15/2016 15:20 JOB #: [id number] MEDICAL IMAGING REPORT Page 1 of 1 COPY
--- NOTE | ~2016-05-24 | XA3 ---
[facility] A Service of [facility] & [facility] RADIOLOGY TEXT RESULTS PATIENT: NEHEMIAH BOWENS LOCATION: [address] : [birth year] UNIT #: [id number] AGE: [address]: Shon Prather MD SEX: F ORDER DR: [id number] [facility] [address] [place] [facility] [place], [place] [address] [id number] I MR#: [id number] Acc #: [id number] NAME: NEHEMIAH BOWENS : 1945 SEX: F STUDY DATE/TIME: 06/24/2016 10:43 UNIT: [facility] ROOM: [facility] STUDY DESCRIPTION: XA Abscess Drain Injection Attending Physician: Shon Prather Jr., M.D. Ordering Physician: Damon Amaya M.D. Primary Care Physician: Jared Johnson D.O. MEDICAL IMAGING REPORT This report is preliminary unless electronic signature is present EXAM Abscess drain injection under fluoroscopy HISTORY Left flank abscess. FINDINGS Ms. Bowens is a 78-year-old female who underwent a recent drainage of a left-sided collection on 06/18. She returns for injection and assessment. The patient's drain was injected in the left lower quadrant with contrast media. The examination shows a rvkyujqm-uu-uuvni residual cavity. The catheter was re-affixed to drainage. The procedures very well tolerated. Total fluoroscopy time for the procedure was 0.5 minutes. 3 spot radiographs were obtained. Total exposure estimated 17 mGy air kerma standard. SUMMARY Significant residual cavity is present within the abscess. This was again left to bag drainage and the catheter left in place. Dictated by... Damon Amaya M.D. THIS IS AN ELECTRONICALLY VERIFIED REPORT Damon Amaya M.D. at 06/27/2016 12:00 PM Yoon TD: 06/24/2016 19:47 JOB #: [id number] MEDICAL IMAGING REPORT Page 1 of 1 COPY
--- NOTE | ~2016-05-24 | CR72 ---
[facility] A Service of [facility] & [facility] RADIOLOGY TEXT RESULTS PATIENT: NEHEMIAH BOWENS LOCATION: [place] [address] : [birth year] UNIT #: [id number] AGE: [address]: Shon Prather MD SEX: F ORDER DR: [id number] [facility] [address] [place], [place] [address] [id number] I MR#: [id number] Acc #: [id number] NAME: NEHEMIAH BOWENS : 1945 SEX: F STUDY DATE/TIME: 06/04/2016 6:16 UNIT: [facility] ROOM: [facility] STUDY DESCRIPTION: CR Chest Single View Portable Attending Physician: Shon Prather Jr., M.D. Ordering Physician: Emiliana Finch M.D. Primary Care Physician: Jared Johnson D.O. MEDICAL IMAGING REPORT This report is preliminary unless electronic signature is present EXAM Portable chest, 06/04 COMPARISON 06/03 HISTORY Intubation, shortness of breath, respiratory failure. Symptoms for 19 days since May 16. FINDINGS An AP view is obtained. The patient is intubated with ET tube above the miguel a. Left sided IJ line tip terminates in the SVC. Heart size is stable. There is volume loss in both bases with slightly improved aeration in the bases compared with the last study. CONCLUSION Bibasilar volume loss with some improvement compared with the previous day's study. Dictated by... Damon Amaya M.D. THIS IS AN ELECTRONICALLY VERIFIED REPORT Damon Amaya M.D. at 06/04/2016 3:37 PM DEV/chucho TD: 06/04/2016 12:11 JOB #: [id number] MEDICAL IMAGING REPORT COPY
[~2016-05-24 11:48] MED LIST: ACID CONTROLLER20 MG PO; ALKA-SELTZER H1 EAC1; AMLODIPINE BESYL5 MG PO; ANEXSIA 5/325 M1 TA1 PO; CENTRUM; CENTRUM SILVER PO; DESYREL50 MG; DOCUSATE SODIU100 MG PO; ESOMEPRAZOLE MA40 MG PO; FENOFIBRATE145 M1 PO; FISH OIL500 M1; GAS-X ULTRA ST180 MG PO; GLUCOPHAGE500 M1; GLUCOPHAGE500 M1 PO; HYDROCODON-ACE1 EAC7 PO; HYDROCORTISONE30 G2 EXT; LEVSIN0.125 M3 PO; LISINOPRIL20 MG PO; LOPRESSOR PO; MELATONIN3 MG PO; METOPROLOL SUCC50 MG; METOPROLOL TAR25 MG PO; MIRALAX119 GM; NEXIUM20 MG; NORCO 10-325 TA1 TAB PO; NORCO1 TAB 10/3 PO; OMEGA 3 FISH OI1 CAP PO; OMEPRAZOLE40 M1 PO; PHENERGAN25 MG PO; PROBIOTIC1 EAC1 PO; SUPER B COMPLEX1 CAP PO; TYLENOL325 M1 PO
[2016-05-25 00:50] LABS: HEMATOCRIT 31.7 % (35.0-45.0); HEMOGLOBIN 10.7 gm/dL (12.0-16.0)
[2016-05-25 01:18] LABS: ALBUMIN SERUM 3.7 g/dL (3.5-5.0); BILIRUBIN,TOTAL 0.5 mg/dL (0.2-2.0); BUN/CREATININE RATIO 19.16; CALCIUM SERUM 8.9 mg/dL (8.4-10.2); CREATININE SERUM 1.2 mg/dL (0.6-1.4); GLOM FILT RATE Estimated 47.2 mL/min (>60); POTASSIUM 4.8 mmol/L (3.5-5.1); PROTEIN TOTAL SERUM 6.8 g/dL (6.0-8.3)
[2016-05-25 09:28] LABS: BASOPHIL% 0.2 % (0-2.5); HEMATOCRIT 29.1 % (35.0-45.0); HEMOGLOBIN 9.9 gm/dL (12.0-16.0); LYMPHOCYTE# 2.8 X10e3 (1.0-3.5); LYMPHOCYTE% 28.8 % (17.0-45.0); MEAN CELL VOLUME 88.4 FL (83-96); MEAN CORPUSCULAR HEMOGLOBIN 30.1 PG (28-34); MEAN CORPUSCULAR HGB CONC 34.1 g/dL (30-36); MEAN PLATELET VOLUME 6.9 FL (6.5-11.5); MONOCYTE# 0.4 X10e3 (0-1.0); MONOCYTE% 3.9 % (3.0-12.0); NEUTROPHIL# 6.6 X10e3 (1.5-7.1); NEUTROPHIL% 67.1 % (40-75); PLATELET COUNT 247 X10e3 (140-420); RED BLOOD COUNT 3.29 X10e (3.90-5.30); RED CELL DISTRIBUTION WIDTH 13.3 % (11.0-15.5); WHITE BLOOD COUNT 9.9 X10e3 (4.0-10.5)
[2016-05-25 09:31] LABS: DIFF IND NO
[2016-05-26 02:54] LABS: MEAN CELL VOLUME 87.8 FL (83-96); MEAN CORPUSCULAR HEMOGLOBIN 30.2 PG (28-34); MEAN CORPUSCULAR HGB CONC 34.4 g/dL (30-36); MEAN PLATELET VOLUME 6.6 FL (6.5-11.5); RED BLOOD COUNT 2.62 X10e (3.90-5.30); RED CELL DISTRIBUTION WIDTH 13.5 % (11.0-15.5); WHITE BLOOD COUNT 10.4 X10e3 (4.0-10.5)
[2016-05-26 02:55] LABS: HEMOGLOBIN 7.9 gm/dL (12.0-16.0)
[2016-05-27 04:25] LABS: BASOPHIL% 0.1 % (0-2.5); DIFF IND NO; EOSINOPHIL% 0.2 % (0.0-7.0); HEMATOCRIT 26.7 % (35.0-45.0); HEMOGLOBIN 9.3 gm/dL (12.0-16.0); LYMPHOCYTE% 11.9 % (17.0-45.0); MEAN CORPUSCULAR HEMOGLOBIN 30.3 PG (28-34); MEAN CORPUSCULAR HGB CONC 34.9 g/dL (30-36); MONOCYTE# 0.3 X10e3 (0-1.0); MONOCYTE% 3.9 % (3.0-12.0); NEUTROPHIL# 7.1 X10e3 (1.5-7.1); NEUTROPHIL% 83.9 % (40-75); PLATELET COUNT 261 X10e3 (140-420); RED BLOOD COUNT 3.07 X10e (3.90-5.30); RED CELL DISTRIBUTION WIDTH 13.2 % (11.0-15.5); WHITE BLOOD COUNT 8.5 X10e3 (4.0-10.5)
[2016-05-27 08:00] LABS: CALCIUM SERUM 8.2 mg/dL (8.4-10.2); CREATININE SERUM 1.8 mg/dL (0.6-1.4); GLOM FILT RATE Estimated 29.6 mL/min (>60)
[2016-05-27 08:02] LABS: POTASSIUM 7.1 mmol/L (3.5-5.1)
[2016-05-27 09:50] LABS: ARTERIAL BLD GAS O2 SATURATION 96.9 % (90.0-100.0); ARTERIAL BLOOD GAS CARBOXY HB 0.6 %sat (0.0-9.0); ARTERIAL BLOOD GAS HCO3 16.7 mmol/L; ARTERIAL BLOOD GAS PCO2 27.5 mmHg (35.0-45.0); ARTERIAL BLOOD GAS pH 7.392 (7.350-7.450)
[2016-05-27 09:51] LABS: ARTERIAL BLOOD GAS PO2 75.2 mmHg (80.0-100)
[2016-05-27 09:52] LABS: ARTERIAL BLOOD GAS ALLEN TEST NORMAL; ARTERIAL BLOOD GAS ART SITE LEFT RADIAL; ARTERIAL BLOOD GAS DELIVERY ROOM AIR; ARTERIAL DRAW? YES
[2016-05-27 13:52] LABS: BUN/CREATININE RATIO 23.33; CALCIUM SERUM 8.8 mg/dL (8.4-10.2); CREATININE SERUM 1.5 mg/dL (0.6-1.4); GLOM FILT RATE Estimated 36.5 mL/min (>60)
[2016-05-27 13:55] LABS: INR 1.1; PARTIAL THROMBOPLASTIN TIME 33.8 SECONDS (23.5-31.3); PROTHROMBIN TIME (PATIENT) 11.9 SECONDS (9.6-11.5)
[2016-05-27 14:05] LABS: POTASSIUM 5.7 mmol/L (3.5-5.1)
[2016-05-27 19:42] LABS: URINE APPEARANCE CLEAR; URINE BILIRUBIN NEG (NEG); URINE BLOOD 1+ (NEG); URINE COLOR YELLOW; URINE GLUCOSE NEG (NEG); URINE KETONE NEG (NEG); URINE LEUKOCYTE ESTERASE NEG (NEG); URINE NITRATE NEG (NEG); URINE PH 5.5 (5-8); URINE PROTEIN TRACE (NEG); URINE SPECIFIC GRAVITY 1.019 (1.003-1.035); URINE UROBILINOGEN 0.2 MG/DL (NEG)
[2016-05-27 19:45] LABS: U HYALINE CASTS AUWI 0-2 /[LPF]; URINE BACTERIA AUWI NEG (NEGATIVE); URINE SQUAMOUS EPITHELIAL CELL NONE SEEN /[HPF]; UWBCS1 AUWI 0-2 (0-5)
[2016-05-28 05:21] LABS: BASOPHIL% 0.2 % (0-2.5); EOSINOPHIL% 0.4 % (0.0-7.0); HEMATOCRIT 22.5 % (35.0-45.0); LYMPHOCYTE# 0.5 X10e3 (1.0-3.5); LYMPHOCYTE% 17.7 % (17.0-45.0); MEAN CELL VOLUME 84.9 FL (83-96); MEAN CORPUSCULAR HEMOGLOBIN 30.2 PG (28-34); MEAN CORPUSCULAR HGB CONC 35.6 g/dL (30-36); MEAN PLATELET VOLUME 6.6 FL (6.5-11.5); MONOCYTE# 0.2 X10e3 (0-1.0); MONOCYTE% 6.5 % (3.0-12.0); NEUTROPHIL# 2.2 X10e3 (1.5-7.1); NEUTROPHIL% 75.2 % (40-75); PLATELET COUNT 241 X10e3 (140-420); RED BLOOD COUNT 2.66 X10e (3.90-5.30); RED CELL DISTRIBUTION WIDTH 13.9 % (11.0-15.5); WHITE BLOOD COUNT 2.9 X10e3 (4.0-10.5)
[2016-05-28 05:22] LABS: DIFF IND YES
[2016-05-28 06:27] LABS: ALBUMIN SERUM 2.1 g/dL (3.5-5.0); BILIRUBIN,TOTAL 1.1 mg/dL (0.2-2.0); BUN/CREATININE RATIO 15.45; CALCIUM SERUM 8.1 mg/dL (8.4-10.2); CREATININE SERUM 1.1 mg/dL (0.6-1.4); GLOM FILT RATE Estimated 52.2 mL/min (>60); PROTEIN TOTAL SERUM 4.7 g/dL (6.0-8.3)
[2016-05-28 06:37] LABS: NUCLEATED RED BLOOD CELL 2 /100 ([, 0])
[2016-05-28 06:43] LABS: ANISOCYTOSIS MOD; PLATELET ESTIMATE NORMAL (NORMAL); POIKILOCYTOSIS SL; RBC NORMAL YES
[2016-05-28 13:08] LABS: ARTERIAL BLD GAS O2 SATURATION 96.4 % (90.0-100.0); ARTERIAL BLOOD GAS CARBOXY HB 0.8 %sat (0.0-9.0); ARTERIAL BLOOD GAS HCO3 22.2 mmol/L; ARTERIAL BLOOD GAS MET HB 0.8 %sat (0.0-2.0); ARTERIAL BLOOD GAS PCO2 28.7 mmHg (35.0-45.0); ARTERIAL BLOOD GAS PO2 88.2 mmHg (80.0-100); ARTERIAL BLOOD GAS pH 7.496 (7.350-7.450)
[2016-05-28 13:09] LABS: ARTERIAL BLOOD GAS ALLEN TEST N; ARTERIAL BLOOD GAS ART SITE RIGHT RADIAL; ARTERIAL BLOOD GAS DELIVERY NASAL CANNULA; ARTERIAL DRAW? YES
[2016-05-28 15:33] LABS: BASOPHIL% 0.1 % (0-2.5); EOSINOPHIL% 0.9 % (0.0-7.0); HEMATOCRIT 25.3 % (35.0-45.0); HEMOGLOBIN 8.9 gm/dL (12.0-16.0); LYMPHOCYTE# 0.6 X10e3 (1.0-3.5); LYMPHOCYTE% 12.2 % (17.0-45.0); MEAN CELL VOLUME 85.7 FL (83-96); MEAN CORPUSCULAR HEMOGLOBIN 30.1 PG (28-34); MEAN CORPUSCULAR HGB CONC 35.2 g/dL (30-36); MEAN PLATELET VOLUME 6.9 FL (6.5-11.5); MONOCYTE# 0.1 X10e3 (0-1.0); MONOCYTE% 3.2 % (3.0-12.0); NEUTROPHIL# 3.8 X10e3 (1.5-7.1); NEUTROPHIL% 83.6 % (40-75); PLATELET COUNT 186 X10e3 (140-420); RED BLOOD COUNT 2.95 X10e (3.90-5.30); RED CELL DISTRIBUTION WIDTH 13.9 % (11.0-15.5)
[2016-05-28 15:36] LABS: DIFF IND NO; WHITE BLOOD COUNT 4.5 X10e3 (4.0-10.5)
[2016-05-28 20:49] LABS: ARTERIAL BLD GAS O2 SATURATION 98.2 % (90.0-100.0); ARTERIAL BLOOD GAS CARBOXY HB 0.7 %sat (0.0-9.0); ARTERIAL BLOOD GAS HCO3 18.4 mmol/L; ARTERIAL BLOOD GAS MET HB 1.1 %sat (0.0-2.0)
[2016-05-28 20:51] LABS: ARTERIAL BLOOD GAS pH 7.166 (7.350-7.450)
[2016-05-28 20:52] LABS: ARTERIAL BLOOD GAS ALLEN TEST NORMAL; ARTERIAL BLOOD GAS ART SITE LEFT RADIAL; ARTERIAL BLOOD GAS DELIVERY VENT; ARTERIAL BLOOD GAS PCO2 50.9 mmHg (35.0-45.0); ARTERIAL BLOOD GAS VENT MODE AC; ARTERIAL DRAW? YES
[2016-05-28 21:06] LABS: HEMOGLOBIN 10.7 gm/dL (12.0-16.0)
[2016-05-28 21:25] LABS: BUN/CREATININE RATIO 19.09; CALCIUM SERUM 6.1 mg/dL (8.4-10.2); CREATININE SERUM 1.1 mg/dL (0.6-1.4); GLOM FILT RATE Estimated 52.2 mL/min (>60); POTASSIUM 3.7 mmol/L (3.5-5.1)
[2016-05-28 21:37] LABS: MAGNESIUM 1.5 mg/dL (1.6-3.0); PHOSPHOROUS 2.9 mg/dL (2.5-4.6)
[2016-05-29 03:45] LABS: ARTERIAL BLD GAS O2 SATURATION 98.2 % (90.0-100.0); ARTERIAL BLOOD GAS CARBOXY HB 0.3 %sat (0.0-9.0); ARTERIAL BLOOD GAS HCO3 14.3 mmol/L; ARTERIAL BLOOD GAS MET HB 1.4 %sat (0.0-2.0); ARTERIAL BLOOD GAS PCO2 25.1 mmHg (35.0-45.0); ARTERIAL BLOOD GAS pH 7.364 (7.350-7.450)
[2016-05-29 03:49] LABS: ARTERIAL BLOOD GAS ALLEN TEST NORMAL; ARTERIAL BLOOD GAS ART SITE LEFT RADIAL; ARTERIAL BLOOD GAS DELIVERY VENT; ARTERIAL BLOOD GAS VENT MODE AC; ARTERIAL DRAW? YES
[2016-05-29 06:54] LABS: BASOPHIL% 0.1 % (0-2.5); EOSINOPHIL# 0.1 X10e3 (0-0.7); EOSINOPHIL% 1.6 % (0.0-7.0); HEMATOCRIT 35.9 % (35.0-45.0); HEMOGLOBIN 11.6 gm/dL (12.0-16.0); LYMPHOCYTE# 0.7 X10e3 (1.0-3.5); MEAN CELL VOLUME 87.5 FL (83-96); MEAN CORPUSCULAR HEMOGLOBIN 28.2 PG (28-34); MEAN CORPUSCULAR HGB CONC 32.3 g/dL (30-36); MEAN PLATELET VOLUME 7.5 FL (6.5-11.5); MONOCYTE# 0.4 X10e3 (0-1.0); NEUTROPHIL% 82.3 % (40-75); PLATELET COUNT 105 X10e3 (140-420); RED CELL DISTRIBUTION WIDTH 15.2 % (11.0-15.5)
[2016-05-29 06:56] LABS: WHITE BLOOD COUNT 7.3 X10e3 (4.0-10.5)
[2016-05-29 06:57] LABS: DIFF IND NO
[2016-05-29 07:55] LABS: ALBUMIN SERUM 1.2 g/dL (3.5-5.0); BILIRUBIN,TOTAL 2.3 mg/dL (0.2-2.0); BUN/CREATININE RATIO 19.16; CALCIUM SERUM 6.8 mg/dL (8.4-10.2); CREATININE SERUM 1.2 mg/dL (0.6-1.4); GLOM FILT RATE Estimated 47.2 mL/min (>60); MAGNESIUM 1.5 mg/dL (1.6-3.0); PHOSPHOROUS 1.7 mg/dL (2.5-4.6); POTASSIUM 3.8 mmol/L (3.5-5.1); PREALBUMIN 3.5 mg/dL (17.0-42.0); PROTEIN TOTAL SERUM 3.2 g/dL (6.0-8.3)
[2016-05-29 12:29] LABS: BASOPHIL% 0.1 % (0-2.5); EOSINOPHIL# 0.1 X10e3 (0-0.7); EOSINOPHIL% 1.3 % (0.0-7.0); HEMATOCRIT 29.3 % (35.0-45.0); HEMOGLOBIN 9.8 gm/dL (12.0-16.0); LYMPHOCYTE# 0.7 X10e3 (1.0-3.5); LYMPHOCYTE% 6.2 % (17.0-45.0); MEAN CELL VOLUME 86.4 FL (83-96); MEAN CORPUSCULAR HEMOGLOBIN 28.9 PG (28-34); MEAN CORPUSCULAR HGB CONC 33.4 g/dL (30-36); MONOCYTE# 0.3 X10e3 (0-1.0); MONOCYTE% 2.5 % (3.0-12.0); NEUTROPHIL# 10.3 X10e3 (1.5-7.1); NEUTROPHIL% 89.9 % (40-75); PLATELET COUNT 160 X10e3 (140-420); RED BLOOD COUNT 3.39 X10e (3.90-5.30); RED CELL DISTRIBUTION WIDTH 15.3 % (11.0-15.5); WHITE BLOOD COUNT 11.4 X10e3 (4.0-10.5)
[2016-05-29 12:30] LABS: DIFF IND NO
[2016-05-29 13:01] LABS: BUN/CREATININE RATIO 18.46; CALCIUM SERUM 6.2 mg/dL (8.4-10.2); CREATININE SERUM 1.3 mg/dL (0.6-1.4); POTASSIUM 3.4 mmol/L (3.5-5.1)
[2016-05-30 03:48] LABS: BASOPHIL% 0.2 % (0-2.5); DIFF IND NO; EOSINOPHIL# 0.1 X10e3 (0-0.7); EOSINOPHIL% 0.7 % (0.0-7.0); HEMATOCRIT 23.9 % (35.0-45.0); HEMOGLOBIN 8.2 gm/dL (12.0-16.0); LYMPHOCYTE% 6.8 % (17.0-45.0); MEAN CELL VOLUME 85.3 FL (83-96); MEAN CORPUSCULAR HEMOGLOBIN 29.3 PG (28-34); MEAN CORPUSCULAR HGB CONC 34.3 g/dL (30-36); MONOCYTE# 0.7 X10e3 (0-1.0); MONOCYTE% 4.9 % (3.0-12.0); NEUTROPHIL# 12.9 X10e3 (1.5-7.1); NEUTROPHIL% 87.4 % (40-75); PLATELET COUNT 130 X10e3 (140-420); RED BLOOD COUNT 2.81 X10e (3.90-5.30); RED CELL DISTRIBUTION WIDTH 15.3 % (11.0-15.5); WHITE BLOOD COUNT 14.8 X10e3 (4.0-10.5)
[2016-05-30 04:16] LABS: ALBUMIN SERUM 1.1 g/dL (3.5-5.0); BILIRUBIN,TOTAL 2.8 mg/dL (0.2-2.0); BUN/CREATININE RATIO 17.69; CREATININE SERUM 1.3 mg/dL (0.6-1.4); MAGNESIUM 1.7 mg/dL (1.6-3.0); PHOSPHOROUS 1.9 mg/dL (2.5-4.6); PROTEIN TOTAL SERUM 3.1 g/dL (6.0-8.3)
[2016-05-30 04:17] LABS: POTASSIUM 2.9 mmol/L (3.5-5.1)
[2016-05-30 04:18] LABS: CALCIUM SERUM 5.9 mg/dL (8.4-10.2)
[2016-05-30 04:32] LABS: ARTERIAL BLD GAS O2 SATURATION 97.9 % (90.0-100.0); ARTERIAL BLOOD GAS CARBOXY HB 0.7 %sat (0.0-9.0); ARTERIAL BLOOD GAS HCO3 17.5 mmol/L; ARTERIAL BLOOD GAS MET HB 1.4 %sat (0.0-2.0); ARTERIAL BLOOD GAS PCO2 28.2 mmHg (35.0-45.0); ARTERIAL BLOOD GAS pH 7.402 (7.350-7.450)
[2016-05-30 04:34] LABS: ARTERIAL DRAW? YES
[2016-05-30 04:35] LABS: ARTERIAL BLOOD GAS ALLEN TEST NORMAL; ARTERIAL BLOOD GAS ART SITE RIGHT RADIAL; ARTERIAL BLOOD GAS DELIVERY VENT; ARTERIAL BLOOD GAS VENT MODE AC
[2016-05-30 17:56] LABS: HA AB IGM (HEPPAN) Nonreactive (Nonreactive); HB CORE AB IGM (HEPPAN) Nonreactive (Nonreactive); HB S AG (HEPPAN) Nonreactive (Nonreactive); HEP C AB (HEPPAN) Nonreactive (Nonreactive); HEP C AB SIGNAL TO CUTOFF 0.01 ratio (<1.00)
[2016-05-31 04:03] LABS: ARTERIAL BLD GAS O2 SATURATION 97.5 % (90.0-100.0); ARTERIAL BLOOD GAS CARBOXY HB 0.7 %sat (0.0-9.0); ARTERIAL BLOOD GAS HCO3 20.7 mmol/L; ARTERIAL BLOOD GAS MET HB 1.6 %sat (0.0-2.0); ARTERIAL BLOOD GAS PCO2 30.1 mmHg (35.0-45.0); ARTERIAL BLOOD GAS pH 7.446 (7.350-7.450)
[2016-05-31 04:05] LABS: ARTERIAL BLOOD GAS ALLEN TEST NORMAL; ARTERIAL BLOOD GAS ART SITE RIGHT RADIAL; ARTERIAL BLOOD GAS DELIVERY VENT; ARTERIAL BLOOD GAS VENT MODE AC; ARTERIAL DRAW? YES
[2016-05-31 04:24] LABS: BASOPHIL# 0.1 X10e3 (0-0.3); BASOPHIL% 0.6 % (0-2.5); EOSINOPHIL# 0.3 X10e3 (0-0.7); EOSINOPHIL% 1.9 % (0.0-7.0); HEMATOCRIT 26.5 % (35.0-45.0); LYMPHOCYTE# 1.2 X10e3 (1.0-3.5); LYMPHOCYTE% 8.7 % (17.0-45.0); MEAN CELL VOLUME 84.7 FL (83-96); MEAN CORPUSCULAR HGB CONC 37.8 g/dL (30-36); MEAN PLATELET VOLUME 7.3 FL (6.5-11.5); MONOCYTE# 0.4 X10e3 (0-1.0); NEUTROPHIL# 12.1 X10e3 (1.5-7.1); NEUTROPHIL% 85.8 % (40-75); PLATELET COUNT 116 X10e3 (140-420); RED BLOOD COUNT 3.13 X10e (3.90-5.30); RED CELL DISTRIBUTION WIDTH 15.1 % (11.0-15.5); WHITE BLOOD COUNT 14.1 X10e3 (4.0-10.5)
[2016-05-31 04:25] LABS: DIFF IND NO
[2016-05-31 04:46] LABS: ALBUMIN SERUM 1.1 g/dL (3.5-5.0); ALKALINE PHOSPHATASE 54 U/L (32-92); ALT (SGPT) 13 U/L (10-40); AMYLASE 27 U/L (0-46); AST (SGOT) 25 U/L (10-42); BILIRUBIN,TOTAL 3.1 mg/dL (0.2-2.0); BLOOD UREA NITROGEN 13 mg/dL (9-23); BUN/CREATININE RATIO 16.25; CALCIUM SERUM 6.4 mg/dL (8.4-10.2); CARBON DIOXIDE 19 mmol/L (22-31); CHLORIDE 112 mmol/L (100-111); CREATININE SERUM 0.8 mg/dL (0.6-1.4); GLOM FILT RATE Estimated ABOVE60 mL/min (>60); GLUCOSE FASTING 177 mg/dL (70-110); LIPASE 30 U/L (22-51); MAGNESIUM 1.6 mg/dL (1.6-3.0); PHOSPHOROUS 1.7 mg/dL (2.5-4.6); PROTEIN TOTAL SERUM 3.2 g/dL (6.0-8.3); SODIUM 132 mmol/L (135-145)
[2016-05-31 04:49] LABS: POTASSIUM 2.7 mmol/L (3.5-5.1)
[2016-05-31 14:57] LABS: BLOOD UREA NITROGEN 12 mg/dL (9-23); BUN/CREATININE RATIO 17.14; CARBON DIOXIDE 21 mmol/L (22-31); CHLORIDE 109 mmol/L (100-111); CREATININE SERUM 0.7 mg/dL (0.6-1.4); GLOM FILT RATE Estimated ABOVE60 mL/min (>60); GLUCOSE FASTING 160 mg/dL (70-110); POTASSIUM 3.1 mmol/L (3.5-5.1); SODIUM 140 mmol/L (135-145)
[2016-06-01 05:06] LABS: BASOPHIL# 0.1 X10e3 (0-0.3); BASOPHIL% 0.4 % (0-2.5); EOSINOPHIL# 0.3 X10e3 (0-0.7); EOSINOPHIL% 2.3 % (0.0-7.0); HEMATOCRIT 26.4 % (35.0-45.0); HEMOGLOBIN 8.9 gm/dL (12.0-16.0); LYMPHOCYTE# 1.1 X10e3 (1.0-3.5); LYMPHOCYTE% 7.6 % (17.0-45.0); MEAN CELL VOLUME 85.5 FL (83-96); MEAN CORPUSCULAR HEMOGLOBIN 28.9 PG (28-34); MEAN CORPUSCULAR HGB CONC 33.8 g/dL (30-36); MEAN PLATELET VOLUME 8.1 FL (6.5-11.5); MONOCYTE# 0.4 X10e3 (0-1.0); MONOCYTE% 2.8 % (3.0-12.0); NEUTROPHIL# 12.1 X10e3 (1.5-7.1); NEUTROPHIL% 86.9 % (40-75); PLATELET COUNT 112 X10e3 (140-420); RED BLOOD COUNT 3.09 X10e (3.90-5.30); RED CELL DISTRIBUTION WIDTH 15.4 % (11.0-15.5); WHITE BLOOD COUNT 13.9 X10e3 (4.0-10.5)
[2016-06-01 05:07] LABS: ARTERIAL BLD GAS O2 SATURATION 97.6 % (90.0-100.0); ARTERIAL BLOOD GAS CARBOXY HB 0.5 %sat (0.0-9.0); ARTERIAL BLOOD GAS HCO3 23.5 mmol/L; ARTERIAL BLOOD GAS MET HB 1.5 %sat (0.0-2.0); ARTERIAL BLOOD GAS PCO2 30.9 mmHg (35.0-45.0)
[2016-06-01 05:07] LABS: DIFF IND NO
[2016-06-01 05:09] LABS: ARTERIAL BLOOD GAS ALLEN TEST NORMAL; ARTERIAL BLOOD GAS ART SITE LEFT RADIAL; ARTERIAL BLOOD GAS DELIVERY VENT; ARTERIAL BLOOD GAS VENT MODE AC; ARTERIAL DRAW? YES
[2016-06-01 05:49] LABS: ALKALINE PHOSPHATASE 53 U/L (32-92); ALT (SGPT) 8 U/L (10-40); AST (SGOT) 23 U/L (10-42); BILIRUBIN,TOTAL 3.5 mg/dL (0.2-2.0); BLOOD UREA NITROGEN 14 mg/dL (9-23); BUN/CREATININE RATIO 15.55; CALCIUM SERUM 7.3 mg/dL (8.4-10.2); CARBON DIOXIDE 23 mmol/L (22-31); CHLORIDE 108 mmol/L (100-111); CREATININE SERUM 0.9 mg/dL (0.6-1.4); GLOM FILT RATE Estimated ABOVE60 mL/min (>60); GLUCOSE FASTING 158 mg/dL (70-110); MAGNESIUM 1.4 mg/dL (1.6-3.0); PHOSPHOROUS 2.6 mg/dL (2.5-4.6); POTASSIUM 3.8 mmol/L (3.5-5.1); PROTEIN TOTAL SERUM 3.3 g/dL (6.0-8.3); SODIUM 139 mmol/L (135-145); TRIGLYCERIDES 384 mg/dL (10-160)
[2016-06-01 05:50] LABS: ALBUMIN SERUM <1.0 g/dL (3.5-5.0)
[2016-06-02 04:21] LABS: ARTERIAL BLD GAS O2 SATURATION 98.3 % (90.0-100.0); ARTERIAL BLOOD GAS CARBOXY HB 0.3 %sat (0.0-9.0); ARTERIAL BLOOD GAS HCO3 23.4 mmol/L; ARTERIAL BLOOD GAS PCO2 32.3 mmHg (35.0-45.0); ARTERIAL BLOOD GAS pH 7.469 (7.350-7.450)
[2016-06-02 04:30] LABS: ARTERIAL BLOOD GAS ALLEN TEST NORMAL; ARTERIAL BLOOD GAS ART SITE LEFT RADIAL; ARTERIAL BLOOD GAS DELIVERY VENT; ARTERIAL BLOOD GAS VENT MODE AC; ARTERIAL DRAW? YES
[2016-06-02 04:43] LABS: BASOPHIL% 0.4 % (0-2.5); EOSINOPHIL# 0.3 X10e3 (0-0.7); EOSINOPHIL% 2.9 % (0.0-7.0); HEMATOCRIT 24.8 % (35.0-45.0); HEMOGLOBIN 8.4 gm/dL (12.0-16.0); LYMPHOCYTE# 1.3 X10e3 (1.0-3.5); LYMPHOCYTE% 11.2 % (17.0-45.0); MEAN CELL VOLUME 86.2 FL (83-96); MEAN CORPUSCULAR HEMOGLOBIN 29.1 PG (28-34); MEAN CORPUSCULAR HGB CONC 33.8 g/dL (30-36); MEAN PLATELET VOLUME 8.5 FL (6.5-11.5); MONOCYTE# 0.4 X10e3 (0-1.0); MONOCYTE% 3.3 % (3.0-12.0); NEUTROPHIL# 9.5 X10e3 (1.5-7.1); NEUTROPHIL% 82.2 % (40-75); PLATELET COUNT 123 X10e3 (140-420); RED BLOOD COUNT 2.88 X10e (3.90-5.30); RED CELL DISTRIBUTION WIDTH 15.6 % (11.0-15.5); WHITE BLOOD COUNT 11.6 X10e3 (4.0-10.5)
[2016-06-02 04:44] LABS: DIFF IND YES
[2016-06-02 05:07] LABS: PLATELET ESTIMATE DECREASED (NORMAL)
[2016-06-02 05:08] LABS: ANISOCYTOSIS SL; BILIRUBIN,TOTAL 3.3 mg/dL (0.2-2.0); CALCIUM SERUM 7.2 mg/dL (8.4-10.2); GLOM FILT RATE Estimated 58.3 mL/min (>60); PHOSPHOROUS 3.7 mg/dL (2.5-4.6); PROTEIN TOTAL SERUM 3.9 g/dL (6.0-8.3)
[2016-06-03 04:30] LABS: BASOPHIL# 0.1 X10e3 (0-0.3); BASOPHIL% 0.7 % (0-2.5); EOSINOPHIL# 0.1 X10e3 (0-0.7); EOSINOPHIL% 1.4 % (0.0-7.0); HEMATOCRIT 26.7 % (35.0-45.0); HEMOGLOBIN 9.3 gm/dL (12.0-16.0); LYMPHOCYTE% 10.4 % (17.0-45.0); MEAN CELL VOLUME 85.8 FL (83-96); MEAN CORPUSCULAR HEMOGLOBIN 29.9 PG (28-34); MEAN CORPUSCULAR HGB CONC 34.8 g/dL (30-36); MEAN PLATELET VOLUME 8.2 FL (6.5-11.5); MONOCYTE# 0.4 X10e3 (0-1.0); NEUTROPHIL# 8.1 X10e3 (1.5-7.1); NEUTROPHIL% 83.5 % (40-75); PLATELET COUNT 164 X10e3 (140-420); RED BLOOD COUNT 3.11 X10e (3.90-5.30); RED CELL DISTRIBUTION WIDTH 15.4 % (11.0-15.5); WHITE BLOOD COUNT 9.7 X10e3 (4.0-10.5)
[2016-06-03 04:35] LABS: DIFF IND NO
[2016-06-03 04:35] LABS: ARTERIAL BLD GAS O2 SATURATION 96.9 % (90.0-100.0); ARTERIAL BLOOD GAS CARBOXY HB 0.5 %sat (0.0-9.0); ARTERIAL BLOOD GAS HCO3 23.9 mmol/L; ARTERIAL BLOOD GAS MET HB 1.4 %sat (0.0-2.0); ARTERIAL BLOOD GAS PCO2 30.8 mmHg (35.0-45.0); ARTERIAL BLOOD GAS pH 7.498 (7.350-7.450)
[2016-06-03 04:37] LABS: ARTERIAL BLOOD GAS ART SITE RIGHT BRACHIAL; ARTERIAL BLOOD GAS DELIVERY VENT; ARTERIAL DRAW? YES
[2016-06-03 04:49] LABS: ALKALINE PHOSPHATASE 48 U/L (32-92); ALT (SGPT) 13 U/L (10-40); AST (SGOT) 66 U/L (10-42); BLOOD UREA NITROGEN 24 mg/dL (9-23); BUN/CREATININE RATIO 26.66; CALCIUM SERUM 7.4 mg/dL (8.4-10.2); CARBON DIOXIDE 24 mmol/L (22-31); CHLORIDE 109 mmol/L (100-111); CREATININE SERUM 0.9 mg/dL (0.6-1.4); GLOM FILT RATE Estimated ABOVE60 mL/min (>60); GLUCOSE FASTING 148 mg/dL (70-110); MAGNESIUM 1.7 mg/dL (1.6-3.0); PHOSPHOROUS 4.7 mg/dL (2.5-4.6); POTASSIUM 4.1 mmol/L (3.5-5.1); PREALBUMIN 7.3 mg/dL (17.0-42.0); PROTEIN TOTAL SERUM 3.8 g/dL (6.0-8.3); SODIUM 137 mmol/L (135-145)
[2016-06-04 04:43] LABS: BASOPHIL% 0.4 % (0-2.5); EOSINOPHIL# 0.1 X10e3 (0-0.7); EOSINOPHIL% 1.5 % (0.0-7.0); HEMATOCRIT 23.1 % (35.0-45.0); HEMOGLOBIN 7.8 gm/dL (12.0-16.0); LYMPHOCYTE# 1.3 X10e3 (1.0-3.5); LYMPHOCYTE% 12.6 % (17.0-45.0); MEAN CELL VOLUME 86.5 FL (83-96); MEAN CORPUSCULAR HEMOGLOBIN 29.3 PG (28-34); MEAN CORPUSCULAR HGB CONC 33.9 g/dL (30-36); MEAN PLATELET VOLUME 8.4 FL (6.5-11.5); MONOCYTE# 0.5 X10e3 (0-1.0); NEUTROPHIL# 8.2 X10e3 (1.5-7.1); NEUTROPHIL% 80.5 % (40-75); PLATELET COUNT 213 X10e3 (140-420); RED BLOOD COUNT 2.67 X10e (3.90-5.30); RED CELL DISTRIBUTION WIDTH 15.5 % (11.0-15.5); WHITE BLOOD COUNT 10.2 X10e3 (4.0-10.5)
[2016-06-04 04:45] LABS: DIFF IND YES
[2016-06-04 05:02] LABS: ANISOCYTOSIS MOD; PLATELET ESTIMATE NORMAL (NORMAL)
[2016-06-04 05:17] LABS: ALBUMIN SERUM 1.3 g/dL (3.5-5.0); ALKALINE PHOSPHATASE 73 U/L (32-92); ALT (SGPT) 21 U/L (10-40); AST (SGOT) 98 U/L (10-42); BILIRUBIN,TOTAL 4.7 mg/dL (0.2-2.0); BLOOD UREA NITROGEN 30 mg/dL (9-23); BUN/CREATININE RATIO 33.33; CALCIUM SERUM 7.5 mg/dL (8.4-10.2); CARBON DIOXIDE 27 mmol/L (22-31); CHLORIDE 102 mmol/L (100-111); CREATININE SERUM 0.9 mg/dL (0.6-1.4); GLOM FILT RATE Estimated ABOVE60 mL/min (>60); GLUCOSE FASTING 168 mg/dL (70-110); PHOSPHOROUS 3.8 mg/dL (2.5-4.6); POTASSIUM 3.8 mmol/L (3.5-5.1); SODIUM 131 mmol/L (135-145)
[2016-06-05 03:59] LABS: BASOPHIL% 0.5 % (0-2.5); EOSINOPHIL# 0.1 X10e3 (0-0.7); HEMATOCRIT 27.8 % (35.0-45.0); HEMOGLOBIN 9.4 gm/dL (12.0-16.0); LYMPHOCYTE# 1.2 X10e3 (1.0-3.5); LYMPHOCYTE% 13.9 % (17.0-45.0); MEAN CELL VOLUME 84.1 FL (83-96); MEAN CORPUSCULAR HEMOGLOBIN 28.4 PG (28-34); MEAN CORPUSCULAR HGB CONC 33.8 g/dL (30-36); MEAN PLATELET VOLUME 7.7 FL (6.5-11.5); MONOCYTE# 0.5 X10e3 (0-1.0); MONOCYTE% 5.2 % (3.0-12.0); NEUTROPHIL% 79.4 % (40-75); PLATELET COUNT 233 X10e3 (140-420); RED BLOOD COUNT 3.31 X10e (3.90-5.30); RED CELL DISTRIBUTION WIDTH 16.8 % (11.0-15.5); WHITE BLOOD COUNT 8.8 X10e3 (4.0-10.5)
[2016-06-05 04:01] LABS: DIFF IND NO
[2016-06-05 04:28] LABS: ALBUMIN SERUM 2.6 g/dL (3.5-5.0); ALKALINE PHOSPHATASE 102 U/L (32-92); ALT (SGPT) 18 U/L (10-40); AST (SGOT) 62 U/L (10-42); BILIRUBIN, DIRECT 4.5 mg/dL (0.0-0.2); BILIRUBIN,TOTAL 6.3 mg/dL (0.2-2.0); BLOOD UREA NITROGEN 36 mg/dL (9-23); CALCIUM SERUM 8.7 mg/dL (8.4-10.2); CARBON DIOXIDE 25 mmol/L (22-31); CHLORIDE 105 mmol/L (100-111); CREATININE SERUM 0.8 mg/dL (0.6-1.4); GLOM FILT RATE Estimated ABOVE60 mL/min (>60); GLUCOSE FASTING 147 mg/dL (70-110); PHOSPHOROUS 3.3 mg/dL (2.5-4.6); POTASSIUM 4.1 mmol/L (3.5-5.1); SODIUM 134 mmol/L (135-145)
[2016-06-05 09:31] LABS: ARTERIAL BLD GAS O2 SATURATION 97.6 % (90.0-100.0); ARTERIAL BLOOD GAS CARBOXY HB 0.6 %sat (0.0-9.0); ARTERIAL BLOOD GAS HCO3 24.4 mmol/L; ARTERIAL BLOOD GAS PCO2 32.9 mmHg (35.0-45.0); ARTERIAL BLOOD GAS pH 7.479 (7.350-7.450)
[2016-06-05 09:32] LABS: ARTERIAL BLOOD GAS ART SITE RIGHT RADIAL; ARTERIAL BLOOD GAS DELIVERY VENT; ARTERIAL BLOOD GAS VENT MODE SIMV; ARTERIAL DRAW? YES
[2016-06-05 10:58] LABS: AMYLASE 174 U/L (0-46); LIPASE 187 U/L (22-51)
[2016-06-05 12:11] LABS: URINE APPEARANCE CLEAR; URINE BLOOD TRACE (NEG); URINE COLOR DK YELLOW; URINE GLUCOSE NEG (NEG); URINE KETONE NEG (NEG); URINE LEUKOCYTE ESTERASE NEG (NEG); URINE NITRATE NEG (NEG); URINE PROTEIN 1+ (NEG); URINE SPECIFIC GRAVITY 1.022 (1.003-1.035); URINE UROBILINOGEN 0.2 MG/DL (NEG)
[2016-06-05 12:14] LABS: U HYALINE CASTS AUWI 0-2 /[LPF]; URINE BACTERIA AUWI NEG (NEGATIVE); URINE SQUAMOUS EPITHELIAL CELL NONE SEEN /[HPF]; UWBCS1 AUWI 0-2 (0-5)
[2016-06-05 12:19] LABS: URINE BILIRUBIN POS (NEG); URINE SOURCE CLEAN CATCH
[2016-06-06 04:47] LABS: BASOPHIL% 0.2 % (0-2.5); DIFF IND NO; EOSINOPHIL# 0.1 X10e3 (0-0.7); EOSINOPHIL% 1.2 % (0.0-7.0); HEMOGLOBIN 8.6 gm/dL (12.0-16.0); LYMPHOCYTE% 10.4 % (17.0-45.0); MEAN CELL VOLUME 85.4 FL (83-96); MEAN CORPUSCULAR HEMOGLOBIN 28.3 PG (28-34); MEAN CORPUSCULAR HGB CONC 33.1 g/dL (30-36); MEAN PLATELET VOLUME 8.1 FL (6.5-11.5); MONOCYTE# 0.5 X10e3 (0-1.0); MONOCYTE% 5.4 % (3.0-12.0); NEUTROPHIL# 8.3 X10e3 (1.5-7.1); NEUTROPHIL% 82.8 % (40-75); PLATELET COUNT 266 X10e3 (140-420); RED BLOOD COUNT 3.05 X10e (3.90-5.30); RED CELL DISTRIBUTION WIDTH 17.1 % (11.0-15.5); WHITE BLOOD COUNT 10.1 X10e3 (4.0-10.5)
[2016-06-06 06:10] LABS: ARTERIAL BLD GAS O2 SATURATION 99.9 % (90.0-100.0); ARTERIAL BLOOD GAS CARBOXY HB 0.4 %sat (0.0-9.0); ARTERIAL BLOOD GAS HCO3 23.4 mmol/L; ARTERIAL BLOOD GAS PCO2 32.8 mmHg (35.0-45.0); ARTERIAL BLOOD GAS pH 7.461 (7.350-7.450)
[2016-06-06 06:11] LABS: ARTERIAL BLOOD GAS ALLEN TEST NORMAL; ARTERIAL BLOOD GAS ART SITE LEFT RADIAL; ARTERIAL BLOOD GAS DELIVERY VENT; ARTERIAL BLOOD GAS MET HB 1.2 %sat (0.0-2.0); ARTERIAL BLOOD GAS VENT MODE AC; ARTERIAL DRAW? YES
[2016-06-06 06:29] LABS: ALBUMIN SERUM 1.8 g/dL (3.5-5.0); ALKALINE PHOSPHATASE 97 U/L (32-92); ALT (SGPT) 13 U/L (10-40); AMYLASE 238 U/L (0-46); AST (SGOT) 45 U/L (10-42); BLOOD UREA NITROGEN 36 mg/dL (9-23); CALCIUM SERUM 8.5 mg/dL (8.4-10.2); CARBON DIOXIDE 24 mmol/L (22-31); CHLORIDE 103 mmol/L (100-111); CREATININE SERUM 0.8 mg/dL (0.6-1.4); GLOM FILT RATE Estimated ABOVE60 mL/min (>60); GLUCOSE FASTING 151 mg/dL (70-110); LIPASE 264 U/L (22-51); MAGNESIUM 1.9 mg/dL (1.6-3.0); PHOSPHOROUS 3.5 mg/dL (2.5-4.6); POTASSIUM 4.2 mmol/L (3.5-5.1); PROTEIN TOTAL SERUM 5.2 g/dL (6.0-8.3); SODIUM 135 mmol/L (135-145); TRIGLYCERIDES 213 mg/dL (10-160)
[2016-06-07 04:23] LABS: BASOPHIL% 0.4 % (0-2.5); DIFF IND NO; EOSINOPHIL# 0.1 X10e3 (0-0.7); EOSINOPHIL% 0.6 % (0.0-7.0); HEMATOCRIT 26.3 % (35.0-45.0); HEMOGLOBIN 8.7 gm/dL (12.0-16.0); LYMPHOCYTE# 1.1 X10e3 (1.0-3.5); LYMPHOCYTE% 13.2 % (17.0-45.0); MEAN CELL VOLUME 85.4 FL (83-96); MEAN CORPUSCULAR HEMOGLOBIN 28.2 PG (28-34); MEAN PLATELET VOLUME 8.2 FL (6.5-11.5); MONOCYTE# 0.4 X10e3 (0-1.0); MONOCYTE% 5.3 % (3.0-12.0); NEUTROPHIL# 6.6 X10e3 (1.5-7.1); NEUTROPHIL% 80.5 % (40-75); PLATELET COUNT 322 X10e3 (140-420); RED BLOOD COUNT 3.07 X10e (3.90-5.30); RED CELL DISTRIBUTION WIDTH 16.9 % (11.0-15.5); WHITE BLOOD COUNT 8.2 X10e3 (4.0-10.5)
[2016-06-07 04:45] LABS: ALBUMIN SERUM 1.9 g/dL (3.5-5.0); ALKALINE PHOSPHATASE 111 U/L (32-92); ALT (SGPT) 12 U/L (10-40); AMYLASE 212 U/L (0-46); AST (SGOT) 43 U/L (10-42); BILIRUBIN,TOTAL 6.4 mg/dL (0.2-2.0); BLOOD UREA NITROGEN 31 mg/dL (9-23); BUN/CREATININE RATIO 38.75; CALCIUM SERUM 8.1 mg/dL (8.4-10.2); CARBON DIOXIDE 22 mmol/L (22-31); CHLORIDE 101 mmol/L (100-111); CREATININE SERUM 0.8 mg/dL (0.6-1.4); GLOM FILT RATE Estimated ABOVE60 mL/min (>60); GLUCOSE FASTING 149 mg/dL (70-110); MAGNESIUM 1.9 mg/dL (1.6-3.0); PROTEIN TOTAL SERUM 6.5 g/dL (6.0-8.3); SODIUM 128 mmol/L (135-145)
[2016-06-07 07:48] LABS: ARTERIAL BLD GAS O2 SATURATION 96.9 % (90.0-100.0); ARTERIAL BLOOD GAS ALLEN TEST NORMAL; ARTERIAL BLOOD GAS ART SITE RIGHT RADIAL; ARTERIAL BLOOD GAS CARBOXY HB 0.6 %sat (0.0-9.0); ARTERIAL BLOOD GAS DELIVERY VENT; ARTERIAL BLOOD GAS HCO3 22.2 mmol/L; ARTERIAL BLOOD GAS MET HB 1.1 %sat (0.0-2.0); ARTERIAL BLOOD GAS PCO2 33.7 mmHg (35.0-45.0); ARTERIAL BLOOD GAS VENT MODE CPAP; ARTERIAL BLOOD GAS pH 7.428 (7.350-7.450); ARTERIAL DRAW? YES
[2016-06-08 06:14] LABS: BASOPHIL# 0.1 X10e3 (0-0.3); BASOPHIL% 0.9 % (0-2.5); EOSINOPHIL# 0.1 X10e3 (0-0.7); EOSINOPHIL% 1.9 % (0.0-7.0); HEMATOCRIT 27.6 % (35.0-45.0); LYMPHOCYTE# 0.9 X10e3 (1.0-3.5); LYMPHOCYTE% 13.9 % (17.0-45.0); MEAN CELL VOLUME 85.4 FL (83-96); MEAN CORPUSCULAR HGB CONC 32.8 g/dL (30-36); MEAN PLATELET VOLUME 8.6 FL (6.5-11.5); MONOCYTE# 0.5 X10e3 (0-1.0); MONOCYTE% 7.8 % (3.0-12.0); NEUTROPHIL# 5.1 X10e3 (1.5-7.1); NEUTROPHIL% 75.5 % (40-75); PLATELET COUNT 432 X10e3 (140-420); RED BLOOD COUNT 3.23 X10e (3.90-5.30); WHITE BLOOD COUNT 6.8 X10e3 (4.0-10.5)
[2016-06-08 06:15] LABS: DIFF IND NO
[2016-06-08 06:57] LABS: ALBUMIN SERUM 1.8 g/dL (3.5-5.0); ALKALINE PHOSPHATASE 124 U/L (32-92); ALT (SGPT) 7 U/L (10-40); AST (SGOT) 46 U/L (10-42); BILIRUBIN,TOTAL 6.6 mg/dL (0.2-2.0); BLOOD UREA NITROGEN 33 mg/dL (9-23); BUN/CREATININE RATIO 47.14; CALCIUM SERUM 8.9 mg/dL (8.4-10.2); CARBON DIOXIDE 21 mmol/L (22-31); CHLORIDE 105 mmol/L (100-111); CREATININE SERUM 0.7 mg/dL (0.6-1.4); GLOM FILT RATE Estimated ABOVE60 mL/min (>60); GLUCOSE FASTING 136 mg/dL (70-110); MAGNESIUM 2.1 mg/dL (1.6-3.0); PHOSPHOROUS 2.4 mg/dL (2.5-4.6); POTASSIUM 4.5 mmol/L (3.5-5.1); PROTEIN TOTAL SERUM 6.8 g/dL (6.0-8.3); SODIUM 133 mmol/L (135-145)
[2016-06-08 09:42] LABS: ARTERIAL BLD GAS O2 SATURATION 97.9 % (90.0-100.0); ARTERIAL BLOOD GAS CARBOXY HB 0.3 %sat (0.0-9.0); ARTERIAL BLOOD GAS HCO3 20.7 mmol/L; ARTERIAL BLOOD GAS MET HB 0.9 %sat (0.0-2.0); ARTERIAL BLOOD GAS PCO2 32.5 mmHg (35.0-45.0); ARTERIAL BLOOD GAS pH 7.413 (7.350-7.450)
[2016-06-08 09:43] LABS: ARTERIAL BLOOD GAS ALLEN TEST NORMAL; ARTERIAL BLOOD GAS ART SITE RIGHT RADIAL; ARTERIAL DRAW? YES
[2016-06-08 09:44] LABS: ARTERIAL BLOOD GAS DELIVERY VENT; ARTERIAL BLOOD GAS VENT MODE CPAP
[2016-06-09 03:45] LABS: ARTERIAL BLD GAS O2 SATURATION 98.2 % (90.0-100.0); ARTERIAL BLOOD GAS CARBOXY HB 0.3 %sat (0.0-9.0); ARTERIAL BLOOD GAS HCO3 19.8 mmol/L; ARTERIAL BLOOD GAS MET HB 0.9 %sat (0.0-2.0); ARTERIAL BLOOD GAS pH 7.399 (7.350-7.450)
[2016-06-09 03:46] LABS: ARTERIAL BLOOD GAS ALLEN TEST NORMAL; ARTERIAL BLOOD GAS ART SITE RIGHT RADIAL; ARTERIAL DRAW? YES
[2016-06-09 03:47] LABS: ARTERIAL BLOOD GAS DELIVERY VENT; ARTERIAL BLOOD GAS VENT MODE AC
[2016-06-09 05:24] LABS: BASOPHIL% 0.3 % (0-2.5); DIFF IND NO; EOSINOPHIL# 0.1 X10e3 (0-0.7); EOSINOPHIL% 2.1 % (0.0-7.0); HEMATOCRIT 25.7 % (35.0-45.0); HEMOGLOBIN 8.4 gm/dL (12.0-16.0); LYMPHOCYTE# 1.2 X10e3 (1.0-3.5); LYMPHOCYTE% 17.8 % (17.0-45.0); MEAN CELL VOLUME 85.5 FL (83-96); MEAN CORPUSCULAR HGB CONC 32.8 g/dL (30-36); MEAN PLATELET VOLUME 7.9 FL (6.5-11.5); MONOCYTE# 0.8 X10e3 (0-1.0); MONOCYTE% 11.4 % (3.0-12.0); NEUTROPHIL# 4.8 X10e3 (1.5-7.1); NEUTROPHIL% 68.4 % (40-75); PLATELET COUNT 463 X10e3 (140-420); RED CELL DISTRIBUTION WIDTH 17.8 % (11.0-15.5); WHITE BLOOD COUNT 6.9 X10e3 (4.0-10.5)
[2016-06-09 05:37] LABS: ALBUMIN SERUM 1.8 g/dL (3.5-5.0); ALKALINE PHOSPHATASE 134 U/L (32-92); ALT (SGPT) 16 U/L (10-40); AST (SGOT) 43 U/L (10-42); BILIRUBIN,TOTAL 5.1 mg/dL (0.2-2.0); BLOOD UREA NITROGEN 29 mg/dL (9-23); BUN/CREATININE RATIO 36.25; CALCIUM SERUM 9.1 mg/dL (8.4-10.2); CARBON DIOXIDE 20 mmol/L (22-31); CHLORIDE 107 mmol/L (100-111); CREATININE SERUM 0.8 mg/dL (0.6-1.4); GLOM FILT RATE Estimated ABOVE60 mL/min (>60); GLUCOSE FASTING 121 mg/dL (70-110); MAGNESIUM 1.8 mg/dL (1.6-3.0); PHOSPHOROUS 2.2 mg/dL (2.5-4.6); POTASSIUM 4.4 mmol/L (3.5-5.1); PROTEIN TOTAL SERUM 6.7 g/dL (6.0-8.3); SODIUM 133 mmol/L (135-145)
[2016-06-10 03:52] LABS: ARTERIAL BLD GAS O2 SATURATION 97.6 % (90.0-100.0); ARTERIAL BLOOD GAS CARBOXY HB 0.5 %sat (0.0-9.0); ARTERIAL BLOOD GAS HCO3 19.8 mmol/L; ARTERIAL BLOOD GAS MET HB 1.4 %sat (0.0-2.0); ARTERIAL BLOOD GAS PCO2 30.7 mmHg (35.0-45.0); ARTERIAL BLOOD GAS pH 7.419 (7.350-7.450)
[2016-06-10 04:01] LABS: ARTERIAL BLOOD GAS ALLEN TEST NORMAL; ARTERIAL DRAW? YES
[2016-06-10 04:02] LABS: ARTERIAL BLOOD GAS ART SITE RIGHT RADIAL; ARTERIAL BLOOD GAS DELIVERY VENT; ARTERIAL BLOOD GAS VENT MODE A/C
[2016-06-10 04:18] LABS: BASOPHIL# 0.1 X10e3 (0-0.3); BASOPHIL% 0.7 % (0-2.5); EOSINOPHIL# 0.2 X10e3 (0-0.7); EOSINOPHIL% 2.7 % (0.0-7.0); HEMATOCRIT 24.6 % (35.0-45.0); HEMOGLOBIN 8.2 gm/dL (12.0-16.0); LYMPHOCYTE# 1.6 X10e3 (1.0-3.5); LYMPHOCYTE% 19.6 % (17.0-45.0); MEAN CELL VOLUME 85.1 FL (83-96); MEAN CORPUSCULAR HEMOGLOBIN 28.2 PG (28-34); MEAN CORPUSCULAR HGB CONC 33.1 g/dL (30-36); MEAN PLATELET VOLUME 7.6 FL (6.5-11.5); MONOCYTE# 0.8 X10e3 (0-1.0); MONOCYTE% 10.2 % (3.0-12.0); NEUTROPHIL# 5.3 X10e3 (1.5-7.1); NEUTROPHIL% 66.8 % (40-75); PLATELET COUNT 458 X10e3 (140-420); RED BLOOD COUNT 2.89 X10e (3.90-5.30); RED CELL DISTRIBUTION WIDTH 17.3 % (11.0-15.5)
[2016-06-10 04:23] LABS: DIFF IND NO
[2016-06-10 04:40] LABS: ALBUMIN SERUM 1.7 g/dL (3.5-5.0); ALKALINE PHOSPHATASE 139 U/L (32-92); ALT (SGPT) 17 U/L (10-40); AST (SGOT) 47 U/L (10-42); BILIRUBIN,TOTAL 4.8 mg/dL (0.2-2.0); BLOOD UREA NITROGEN 26 mg/dL (9-23); BUN/CREATININE RATIO 37.14; CALCIUM SERUM 8.4 mg/dL (8.4-10.2); CARBON DIOXIDE 20 mmol/L (22-31); CHLORIDE 109 mmol/L (100-111); CREATININE SERUM 0.7 mg/dL (0.6-1.4); GLOM FILT RATE Estimated ABOVE60 mL/min (>60); GLUCOSE FASTING 163 mg/dL (70-110); PHOSPHOROUS 2.9 mg/dL (2.5-4.6); PROTEIN TOTAL SERUM 6.9 g/dL (6.0-8.3); SODIUM 131 mmol/L (135-145)
[2016-06-11 05:41] LABS: BASOPHIL% 0.5 % (0-2.5); EOSINOPHIL# 0.2 X10e3 (0-0.7); EOSINOPHIL% 2.5 % (0.0-7.0); HEMATOCRIT 23.9 % (35.0-45.0); HEMOGLOBIN 7.9 gm/dL (12.0-16.0); LYMPHOCYTE# 1.1 X10e3 (1.0-3.5); LYMPHOCYTE% 16.6 % (17.0-45.0); MEAN CELL VOLUME 85.6 FL (83-96); MEAN CORPUSCULAR HEMOGLOBIN 28.5 PG (28-34); MEAN CORPUSCULAR HGB CONC 33.3 g/dL (30-36); MEAN PLATELET VOLUME 7.6 FL (6.5-11.5); MONOCYTE# 0.8 X10e3 (0-1.0); MONOCYTE% 11.4 % (3.0-12.0); NEUTROPHIL# 4.7 X10e3 (1.5-7.1); PLATELET COUNT 460 X10e3 (140-420); RED BLOOD COUNT 2.79 X10e (3.90-5.30); RED CELL DISTRIBUTION WIDTH 17.5 % (11.0-15.5); WHITE BLOOD COUNT 6.8 X10e3 (4.0-10.5)
[2016-06-11 05:43] LABS: DIFF IND YES
[2016-06-11 06:02] LABS: BLOOD UREA NITROGEN 20 mg/dL (9-23); CALCIUM SERUM 8.6 mg/dL (8.4-10.2); CARBON DIOXIDE 22 mmol/L (22-31); CHLORIDE 110 mmol/L (100-111); CREATININE SERUM 0.5 mg/dL (0.6-1.4); GLOM FILT RATE Estimated ABOVE60 mL/min (>60); GLUCOSE FASTING 124 mg/dL (70-110); MAGNESIUM 1.6 mg/dL (1.6-3.0); PHOSPHOROUS 3.2 mg/dL (2.5-4.6); POTASSIUM 3.5 mmol/L (3.5-5.1); SODIUM 138 mmol/L (135-145); TRIGLYCERIDES 224 mg/dL (10-160)
[2016-06-11 06:12] LABS: ANISOCYTOSIS SL; NUCLEATED RED BLOOD CELL 1 /100 ([, 0]); PLATELET ESTIMATE INCREASED (NORMAL)
[2016-06-12 05:04] LABS: BASOPHIL% 0.3 % (0-2.5); EOSINOPHIL# 0.3 X10e3 (0-0.7); EOSINOPHIL% 2.1 % (0.0-7.0); HEMATOCRIT 22.7 % (35.0-45.0); HEMOGLOBIN 7.3 gm/dL (12.0-16.0); LYMPHOCYTE# 2.1 X10e3 (1.0-3.5); LYMPHOCYTE% 16.2 % (17.0-45.0); MEAN CELL VOLUME 85.2 FL (83-96); MEAN CORPUSCULAR HEMOGLOBIN 27.4 PG (28-34); MEAN CORPUSCULAR HGB CONC 32.2 g/dL (30-36); MONOCYTE% 7.8 % (3.0-12.0); NEUTROPHIL# 9.8 X10e3 (1.5-7.1); NEUTROPHIL% 73.6 % (40-75); PLATELET COUNT 541 X10e3 (140-420); RED BLOOD COUNT 2.66 X10e (3.90-5.30); RED CELL DISTRIBUTION WIDTH 17.6 % (11.0-15.5)
[2016-06-12 05:05] LABS: DIFF IND NO; WHITE BLOOD COUNT 13.2 X10e3 (4.0-10.5)
[2016-06-12 05:13] LABS: ARTERIAL BLD GAS O2 SATURATION 98.1 % (90.0-100.0); ARTERIAL BLOOD GAS CARBOXY HB 0.3 %sat (0.0-9.0); ARTERIAL BLOOD GAS HCO3 21.1 mmol/L; ARTERIAL BLOOD GAS MET HB 1.1 %sat (0.0-2.0); ARTERIAL BLOOD GAS PCO2 30.1 mmHg (35.0-45.0); ARTERIAL BLOOD GAS pH 7.454 (7.350-7.450)
[2016-06-12 05:22] LABS: ALBUMIN SERUM 1.5 g/dL (3.5-5.0); ALKALINE PHOSPHATASE 147 U/L (32-92); ALT (SGPT) 20 U/L (10-40); AST (SGOT) 56 U/L (10-42); BLOOD UREA NITROGEN 25 mg/dL (9-23); BUN/CREATININE RATIO 27.77; CALCIUM SERUM 8.2 mg/dL (8.4-10.2); CARBON DIOXIDE 23 mmol/L (22-31); CHLORIDE 112 mmol/L (100-111); CREATININE SERUM 0.9 mg/dL (0.6-1.4); GLOM FILT RATE Estimated ABOVE60 mL/min (>60); GLUCOSE FASTING 180 mg/dL (70-110); MAGNESIUM 1.7 mg/dL (1.6-3.0); PHOSPHOROUS 3.3 mg/dL (2.5-4.6); POTASSIUM 4.2 mmol/L (3.5-5.1); PROTEIN TOTAL SERUM 6.1 g/dL (6.0-8.3); SODIUM 138 mmol/L (135-145)
[2016-06-12 05:29] LABS: ARTERIAL DRAW? YES
[2016-06-12 05:30] LABS: ARTERIAL BLOOD GAS ALLEN TEST NORMAL; ARTERIAL BLOOD GAS ART SITE RIGHT RADIAL; ARTERIAL BLOOD GAS VENT MODE AC
[2016-06-13 04:16] LABS: BASOPHIL# 0.1 X10e3 (0-0.3); BASOPHIL% 0.4 % (0-2.5); EOSINOPHIL# 0.3 X10e3 (0-0.7); EOSINOPHIL% 2.3 % (0.0-7.0); HEMATOCRIT 19.4 % (35.0-45.0); LYMPHOCYTE# 2.4 X10e3 (1.0-3.5); LYMPHOCYTE% 17.7 % (17.0-45.0); MEAN CELL VOLUME 84.8 FL (83-96); MEAN CORPUSCULAR HEMOGLOBIN 28.1 PG (28-34); MEAN CORPUSCULAR HGB CONC 33.2 g/dL (30-36); MEAN PLATELET VOLUME 7.5 FL (6.5-11.5); MONOCYTE% 7.4 % (3.0-12.0); NEUTROPHIL# 9.7 X10e3 (1.5-7.1); NEUTROPHIL% 72.2 % (40-75); PLATELET COUNT 486 X10e3 (140-420); RED BLOOD COUNT 2.29 X10e (3.90-5.30); WHITE BLOOD COUNT 13.5 X10e3 (4.0-10.5)
[2016-06-13 04:19] LABS: DIFF IND NO; HEMOGLOBIN 6.4 gm/dL (12.0-16.0)
[2016-06-13 04:47] LABS: ALBUMIN SERUM 1.6 g/dL (3.5-5.0); ALKALINE PHOSPHATASE 108 U/L (32-92); ALT (SGPT) 16 U/L (10-40); AST (SGOT) 38 U/L (10-42); BILIRUBIN,TOTAL 4.1 mg/dL (0.2-2.0); BLOOD UREA NITROGEN 23 mg/dL (9-23); BUN/CREATININE RATIO 38.33; CALCIUM SERUM 8.6 mg/dL (8.4-10.2); CARBON DIOXIDE 24 mmol/L (22-31); CHLORIDE 111 mmol/L (100-111); CREATININE SERUM 0.6 mg/dL (0.6-1.4); GLOM FILT RATE Estimated ABOVE60 mL/min (>60); GLUCOSE FASTING 147 mg/dL (70-110); MAGNESIUM 1.8 mg/dL (1.6-3.0); PHOSPHOROUS 2.6 mg/dL (2.5-4.6); POTASSIUM 3.5 mmol/L (3.5-5.1); PROTEIN TOTAL SERUM 6.9 g/dL (6.0-8.3); SODIUM 142 mmol/L (135-145); TRIGLYCERIDES 219 mg/dL (10-160)
[2016-06-13 16:54] LABS: BASOPHIL% 0.3 % (0-2.5); EOSINOPHIL# 0.5 X10e3 (0-0.7); EOSINOPHIL% 4.1 % (0.0-7.0); HEMATOCRIT 25.2 % (35.0-45.0); LYMPHOCYTE# 1.1 X10e3 (1.0-3.5); LYMPHOCYTE% 10.3 % (17.0-45.0); MEAN CELL VOLUME 85.5 FL (83-96); MEAN CORPUSCULAR HEMOGLOBIN 28.7 PG (28-34); MEAN CORPUSCULAR HGB CONC 33.6 g/dL (30-36); MEAN PLATELET VOLUME 7.3 FL (6.5-11.5); MONOCYTE# 0.9 X10e3 (0-1.0); MONOCYTE% 8.2 % (3.0-12.0); NEUTROPHIL# 8.6 X10e3 (1.5-7.1); NEUTROPHIL% 77.1 % (40-75); PLATELET COUNT 412 X10e3 (140-420); RED BLOOD COUNT 2.95 X10e (3.90-5.30); RED CELL DISTRIBUTION WIDTH 16.6 % (11.0-15.5); WHITE BLOOD COUNT 11.1 X10e3 (4.0-10.5)
[2016-06-13 16:57] LABS: HEMOGLOBIN 8.5 gm/dL (12.0-16.0)
[2016-06-13 16:58] LABS: DIFF IND NO
[2016-06-14 04:41] LABS: BASOPHIL% 0.4 % (0-2.5); EOSINOPHIL# 0.4 X10e3 (0-0.7); EOSINOPHIL% 3.7 % (0.0-7.0); HEMOGLOBIN 9.1 gm/dL (12.0-16.0); LYMPHOCYTE# 1.8 X10e3 (1.0-3.5); LYMPHOCYTE% 16.3 % (17.0-45.0); MEAN CELL VOLUME 85.6 FL (83-96); MEAN CORPUSCULAR HEMOGLOBIN 27.9 PG (28-34); MEAN CORPUSCULAR HGB CONC 32.6 g/dL (30-36); MEAN PLATELET VOLUME 7.3 FL (6.5-11.5); MONOCYTE% 8.7 % (3.0-12.0); NEUTROPHIL# 7.8 X10e3 (1.5-7.1); NEUTROPHIL% 70.9 % (40-75); PLATELET COUNT 403 X10e3 (140-420); RED BLOOD COUNT 3.27 X10e (3.90-5.30); RED CELL DISTRIBUTION WIDTH 16.4 % (11.0-15.5)
[2016-06-14 04:42] LABS: DIFF IND NO
[2016-06-14 04:44] LABS: ARTERIAL BLD GAS O2 SATURATION 96.9 % (90.0-100.0); ARTERIAL BLOOD GAS CARBOXY HB 0.9 %sat (0.0-9.0); ARTERIAL BLOOD GAS HCO3 24.7 mmol/L; ARTERIAL BLOOD GAS MET HB 1.7 %sat (0.0-2.0); ARTERIAL BLOOD GAS PCO2 37.8 mmHg (35.0-45.0); ARTERIAL BLOOD GAS pH 7.423 (7.350-7.450)
[2016-06-14 05:00] LABS: CALCIUM SERUM 8.8 mg/dL (8.4-10.2); CREATININE SERUM 0.6 mg/dL (0.6-1.4); GLOM FILT RATE Estimated 92.4 mL/min (>60); MAGNESIUM 1.9 mg/dL (1.6-3.0); POTASSIUM 3.9 mmol/L (3.5-5.1)
[2016-06-14 06:13] LABS: ARTERIAL BLOOD GAS ALLEN TEST NORMAL; ARTERIAL BLOOD GAS ART SITE RIGHT RADIAL; ARTERIAL BLOOD GAS DELIVERY VENT; ARTERIAL BLOOD GAS VENT MODE AC; ARTERIAL DRAW? YES
[2016-06-15 04:25] LABS: ARTERIAL BLD GAS O2 SATURATION 99.4 % (90.0-100.0); ARTERIAL BLOOD GAS CARBOXY HB 8.1 %sat (0.0-9.0); ARTERIAL BLOOD GAS HCO3 25.7 mmol/L; ARTERIAL BLOOD GAS MET HB 0.9 %sat (0.0-2.0); ARTERIAL BLOOD GAS PCO2 39.3 mmHg (35.0-45.0); ARTERIAL BLOOD GAS pH 7.424 (7.350-7.450)
[2016-06-15 04:26] LABS: ARTERIAL BLOOD GAS ALLEN TEST NORMAL; ARTERIAL BLOOD GAS ART SITE RIGHT RADIAL; ARTERIAL BLOOD GAS DELIVERY VENT; ARTERIAL BLOOD GAS VENT MODE AC; ARTERIAL DRAW? YES
[2016-06-15 05:55] LABS: BASOPHIL% 0.6 % (0-2.5); EOSINOPHIL# 0.3 X10e3 (0-0.7); EOSINOPHIL% 4.2 % (0.0-7.0); HEMATOCRIT 25.5 % (35.0-45.0); HEMOGLOBIN 8.5 gm/dL (12.0-16.0); LYMPHOCYTE# 1.4 X10e3 (1.0-3.5); LYMPHOCYTE% 18.5 % (17.0-45.0); MEAN CELL VOLUME 86.7 FL (83-96); MEAN CORPUSCULAR HEMOGLOBIN 28.8 PG (28-34); MEAN CORPUSCULAR HGB CONC 33.2 g/dL (30-36); MEAN PLATELET VOLUME 7.5 FL (6.5-11.5); MONOCYTE# 0.8 X10e3 (0-1.0); MONOCYTE% 10.4 % (3.0-12.0); NEUTROPHIL% 66.3 % (40-75); PLATELET COUNT 338 X10e3 (140-420); RED BLOOD COUNT 2.94 X10e (3.90-5.30); RED CELL DISTRIBUTION WIDTH 16.7 % (11.0-15.5); WHITE BLOOD COUNT 7.6 X10e3 (4.0-10.5)
[2016-06-15 05:56] LABS: DIFF IND YES
[2016-06-15 06:23] LABS: ALBUMIN SERUM 1.4 g/dL (3.5-5.0); BILIRUBIN,TOTAL 3.7 mg/dL (0.2-2.0); BUN/CREATININE RATIO 57.5; CALCIUM SERUM 7.9 mg/dL (8.4-10.2); CREATININE SERUM 0.4 mg/dL (0.6-1.4); GLOM FILT RATE Estimated 105.6 mL/min (>60); MAGNESIUM 1.8 mg/dL (1.6-3.0); PHOSPHOROUS 3.5 mg/dL (2.5-4.6); POTASSIUM 3.9 mmol/L (3.5-5.1); PROTEIN TOTAL SERUM 5.9 g/dL (6.0-8.3)
[2016-06-15 06:48] LABS: ANISOCYTOSIS SL; HYPOCHROMIA SL; PLATELET ESTIMATE NORMAL (NORMAL)
[2016-06-15 18:00] LABS: INR 1.1; PROTHROMBIN TIME (PATIENT) 11.9 SECONDS (9.6-11.5)
[2016-06-15 18:14] LABS: INFLUENZA A NEG (NEG); INFLUENZA B NEG (NEG)
[2016-06-16 02:09] LABS: BASOPHIL% 0.3 % (0-2.5); EOSINOPHIL# 0.2 X10e3 (0-0.7); HEMATOCRIT 25.6 % (35.0-45.0); HEMOGLOBIN 8.6 gm/dL (12.0-16.0); LYMPHOCYTE# 1.7 X10e3 (1.0-3.5); LYMPHOCYTE% 20.8 % (17.0-45.0); MEAN CELL VOLUME 85.8 FL (83-96); MEAN CORPUSCULAR HEMOGLOBIN 28.7 PG (28-34); MEAN CORPUSCULAR HGB CONC 33.4 g/dL (30-36); MEAN PLATELET VOLUME 7.3 FL (6.5-11.5); MONOCYTE# 0.9 X10e3 (0-1.0); MONOCYTE% 10.5 % (3.0-12.0); NEUTROPHIL# 5.3 X10e3 (1.5-7.1); NEUTROPHIL% 65.4 % (40-75); PLATELET COUNT 308 X10e3 (140-420); RED BLOOD COUNT 2.98 X10e (3.90-5.30); RED CELL DISTRIBUTION WIDTH 16.3 % (11.0-15.5); WHITE BLOOD COUNT 8.1 X10e3 (4.0-10.5)
[2016-06-16 02:10] LABS: DIFF IND NO
[2016-06-16 02:13] LABS: BUN/CREATININE RATIO 52.5; CREATININE SERUM 0.4 mg/dL (0.6-1.4); GLOM FILT RATE Estimated 105.6 mL/min (>60); MAGNESIUM 1.7 mg/dL (1.6-3.0); POTASSIUM 3.4 mmol/L (3.5-5.1)
[2016-06-16 02:14] LABS: INR 1.1
[2016-06-16 05:19] LABS: ARTERIAL BLOOD GAS HCO3 26.1 mmol/L; ARTERIAL BLOOD GAS PCO2 40.4 mmHg (35.0-45.0); ARTERIAL BLOOD GAS pH 7.419 (7.350-7.450)
[2016-06-16 05:20] LABS: ARTERIAL BLD GAS O2 SATURATION 99.4 % (90.0-100.0); ARTERIAL BLOOD GAS ALLEN TEST NORMAL; ARTERIAL BLOOD GAS ART SITE LEFT RADIAL; ARTERIAL BLOOD GAS CARBOXY HB 0.2 %sat (0.0-9.0); ARTERIAL BLOOD GAS DELIVERY VENT; ARTERIAL BLOOD GAS MET HB 0.8 %sat (0.0-2.0); ARTERIAL BLOOD GAS VENT MODE AC; ARTERIAL DRAW? YES
[2016-06-16 10:50] LABS: URINE APPEARANCE CLEAR; URINE BLOOD 2+ (NEG); URINE COLOR DK YELLOW; URINE GLUCOSE NEG (NEG); URINE KETONE NEG (NEG); URINE LEUKOCYTE ESTERASE TRACE (NEG); URINE NITRATE NEG (NEG); URINE PH 6.5 (5-8); URINE PROTEIN TRACE (NEG); URINE SPECIFIC GRAVITY 1.023 (1.003-1.035); URINE UROBILINOGEN 0.2 MG/DL (NEG)
[2016-06-16 10:53] LABS: URBCS1 AUWI 25-50 /[HPF] (0-2); URINE BACTERIA AUWI NEG (NEGATIVE); URINE SQUAMOUS EPITHELIAL CELL OCC /[HPF]
[2016-06-16 11:21] LABS: CULTURE INDICATED? NO; URINE BILIRUBIN POS (NEG)
[2016-06-16 11:22] LABS: U HYALINE CASTS AUWI 25-50 /[LPF]; URINE GRANULAR CAST 0-2 /[HPF]; URINE MUCUS PRESENT
[2016-06-17 04:05] LABS: BASOPHIL% 0.4 % (0-2.5); EOSINOPHIL# 0.2 X10e3 (0-0.7); EOSINOPHIL% 2.5 % (0.0-7.0); HEMATOCRIT 22.8 % (35.0-45.0); HEMOGLOBIN 7.5 gm/dL (12.0-16.0); LYMPHOCYTE% 14.2 % (17.0-45.0); MEAN CELL VOLUME 86.9 FL (83-96); MEAN CORPUSCULAR HEMOGLOBIN 28.6 PG (28-34); MEAN CORPUSCULAR HGB CONC 32.9 g/dL (30-36); MEAN PLATELET VOLUME 7.7 FL (6.5-11.5); MONOCYTE# 0.7 X10e3 (0-1.0); MONOCYTE% 9.9 % (3.0-12.0); NEUTROPHIL# 5.3 X10e3 (1.5-7.1); PLATELET COUNT 265 X10e3 (140-420); RED BLOOD COUNT 2.63 X10e (3.90-5.30); RED CELL DISTRIBUTION WIDTH 16.4 % (11.0-15.5); WHITE BLOOD COUNT 7.2 X10e3 (4.0-10.5)
[2016-06-17 04:06] LABS: DIFF IND NO
[2016-06-17 04:17] LABS: CALCIUM SERUM 7.7 mg/dL (8.4-10.2); CREATININE SERUM 0.5 mg/dL (0.6-1.4); GLOM FILT RATE Estimated 98.1 mL/min (>60); MAGNESIUM 1.6 mg/dL (1.6-3.0); PHOSPHOROUS 2.6 mg/dL (2.5-4.6); POTASSIUM 3.9 mmol/L (3.5-5.1); PREALBUMIN 12.6 mg/dL (17.0-42.0)
[2016-06-17 04:22] LABS: ARTERIAL BLD GAS O2 SATURATION 99.7 % (90.0-100.0); ARTERIAL BLOOD GAS CARBOXY HB 0.3 %sat (0.0-9.0); ARTERIAL BLOOD GAS HCO3 24.5 mmol/L; ARTERIAL BLOOD GAS MET HB 0.9 %sat (0.0-2.0); ARTERIAL BLOOD GAS PCO2 35.6 mmHg (35.0-45.0)
[2016-06-17 04:23] LABS: ARTERIAL BLOOD GAS ALLEN TEST N; ARTERIAL BLOOD GAS ART SITE RIGHT RADIAL; ARTERIAL BLOOD GAS DELIVERY VENT; ARTERIAL BLOOD GAS VENT MODE A/C; ARTERIAL DRAW? YES
[2016-06-17 11:08] LABS: AMYLASE 103 U/L (0-46); LIPASE 94 U/L (22-51)
[2016-06-17 17:35] LABS: HEMATOCRIT 22.8 % (35.0-45.0); HEMOGLOBIN 7.5 gm/dL (12.0-16.0)
[2016-06-18 04:21] LABS: ARTERIAL BLD GAS O2 SATURATION 97.6 % (90.0-100.0); ARTERIAL BLOOD GAS CARBOXY HB 0.6 %sat (0.0-9.0); ARTERIAL BLOOD GAS HCO3 24.3 mmol/L; ARTERIAL BLOOD GAS MET HB 1.3 %sat (0.0-2.0); ARTERIAL BLOOD GAS PCO2 36.6 mmHg (35.0-45.0); ARTERIAL BLOOD GAS pH 7.431 (7.350-7.450)
[2016-06-18 04:24] LABS: ARTERIAL BLOOD GAS ALLEN TEST NORMAL; ARTERIAL BLOOD GAS ART SITE RIGHT RADIAL; ARTERIAL BLOOD GAS DELIVERY VENT; ARTERIAL BLOOD GAS VENT MODE AC; ARTERIAL DRAW? YES
[2016-06-18 06:16] LABS: HEMATOCRIT 25.5 % (35.0-45.0); HEMOGLOBIN 8.3 gm/dL (12.0-16.0); MEAN CELL VOLUME 86.7 FL (83-96); MEAN CORPUSCULAR HEMOGLOBIN 28.4 PG (28-34); MEAN CORPUSCULAR HGB CONC 32.7 g/dL (30-36); MEAN PLATELET VOLUME 7.7 FL (6.5-11.5); RED BLOOD COUNT 2.94 X10e (3.90-5.30); RED CELL DISTRIBUTION WIDTH 16.7 % (11.0-15.5); WHITE BLOOD COUNT 9.5 X10e3 (4.0-10.5)
[2016-06-18 07:23] LABS: ALBUMIN SERUM 1.4 g/dL (3.5-5.0); CALCIUM SERUM 8.3 mg/dL (8.4-10.2); CREATININE SERUM 0.5 mg/dL (0.6-1.4); GLOM FILT RATE Estimated 98.1 mL/min (>60); MAGNESIUM 1.4 mg/dL (1.6-3.0); POTASSIUM 4.1 mmol/L (3.5-5.1); PROTEIN TOTAL SERUM 5.6 g/dL (6.0-8.3)
[2016-06-19 04:14] LABS: ARTERIAL BLD GAS O2 SATURATION 98.6 % (90.0-100.0); ARTERIAL BLOOD GAS CARBOXY HB 0.3 %sat (0.0-9.0); ARTERIAL BLOOD GAS HCO3 24.8 mmol/L; ARTERIAL BLOOD GAS MET HB 0.9 %sat (0.0-2.0); ARTERIAL BLOOD GAS PCO2 35.6 mmHg (35.0-45.0); ARTERIAL BLOOD GAS pH 7.452 (7.350-7.450)
[2016-06-19 04:31] LABS: ARTERIAL BLOOD GAS ALLEN TEST NORMAL; ARTERIAL BLOOD GAS ART SITE LEFT RADIAL; ARTERIAL BLOOD GAS DELIVERY VENT; ARTERIAL DRAW? YES
[2016-06-19 04:32] LABS: ARTERIAL BLOOD GAS VENT MODE AC
[2016-06-19 05:34] LABS: BASOPHIL% 0.3 % (0-2.5); EOSINOPHIL# 0.2 X10e3 (0-0.7); EOSINOPHIL% 1.9 % (0.0-7.0); HEMOGLOBIN 8.8 gm/dL (12.0-16.0); LYMPHOCYTE% 30.9 % (17.0-45.0); MEAN CELL VOLUME 86.7 FL (83-96); MEAN CORPUSCULAR HEMOGLOBIN 28.2 PG (28-34); MEAN CORPUSCULAR HGB CONC 32.5 g/dL (30-36); MEAN PLATELET VOLUME 7.6 FL (6.5-11.5); MONOCYTE# 0.8 X10e3 (0-1.0); MONOCYTE% 8.1 % (3.0-12.0); NEUTROPHIL# 5.7 X10e3 (1.5-7.1); NEUTROPHIL% 58.8 % (40-75); PLATELET COUNT 297 X10e3 (140-420); RED BLOOD COUNT 3.11 X10e (3.90-5.30); RED CELL DISTRIBUTION WIDTH 16.6 % (11.0-15.5); WHITE BLOOD COUNT 9.6 X10e3 (4.0-10.5)
[2016-06-19 05:46] LABS: DIFF IND NO
[2016-06-20 04:01] LABS: BASOPHIL% 0.3 % (0-2.5); EOSINOPHIL# 0.1 X10e3 (0-0.7); EOSINOPHIL% 1.3 % (0.0-7.0); HEMATOCRIT 22.2 % (35.0-45.0); HEMOGLOBIN 7.3 gm/dL (12.0-16.0); LYMPHOCYTE# 1.2 X10e3 (1.0-3.5); LYMPHOCYTE% 17.8 % (17.0-45.0); MEAN CELL VOLUME 86.7 FL (83-96); MEAN CORPUSCULAR HEMOGLOBIN 28.6 PG (28-34); MEAN PLATELET VOLUME 7.5 FL (6.5-11.5); MONOCYTE# 0.5 X10e3 (0-1.0); MONOCYTE% 7.7 % (3.0-12.0); NEUTROPHIL# 5.1 X10e3 (1.5-7.1); NEUTROPHIL% 72.9 % (40-75); PLATELET COUNT 229 X10e3 (140-420); RED BLOOD COUNT 2.56 X10e (3.90-5.30); RED CELL DISTRIBUTION WIDTH 16.7 % (11.0-15.5)
[2016-06-20 04:03] LABS: DIFF IND YES
[2016-06-20 04:17] LABS: ALBUMIN SERUM 1.5 g/dL (3.5-5.0); BILIRUBIN,TOTAL 2.8 mg/dL (0.2-2.0); CALCIUM SERUM 8.4 mg/dL (8.4-10.2); CREATININE SERUM 0.5 mg/dL (0.6-1.4); GLOM FILT RATE Estimated 98.1 mL/min (>60); MAGNESIUM 1.2 mg/dL (1.6-3.0); PHOSPHOROUS 3.2 mg/dL (2.5-4.6); POTASSIUM 3.7 mmol/L (3.5-5.1); PROTEIN TOTAL SERUM 6.1 g/dL (6.0-8.3)
[2016-06-20 04:25] LABS: ARTERIAL BLD GAS O2 SATURATION 97.6 % (90.0-100.0); ARTERIAL BLOOD GAS CARBOXY HB 0.5 %sat (0.0-9.0); ARTERIAL BLOOD GAS HCO3 25.2 mmol/L; ARTERIAL BLOOD GAS MET HB 1.5 %sat (0.0-2.0); ARTERIAL BLOOD GAS PCO2 36.6 mmHg (35.0-45.0); ARTERIAL BLOOD GAS pH 7.445 (7.350-7.450)
[2016-06-20 04:28] LABS: ANISOCYTOSIS SL; PLATELET ESTIMATE NORMAL (NORMAL)
[2016-06-20 04:29] LABS: HYPOCHROMIA MOD; POLYCHROMASIA SL
[2016-06-20 04:32] LABS: ARTERIAL DRAW? YES
[2016-06-20 04:33] LABS: ARTERIAL BLOOD GAS ALLEN TEST NORMAL; ARTERIAL BLOOD GAS ART SITE LEFT RADIAL; ARTERIAL BLOOD GAS DELIVERY VENT; ARTERIAL BLOOD GAS VENT MODE AC
[2016-06-21 06:15] LABS: BASOPHIL% 0.3 % (0-2.5); EOSINOPHIL# 0.2 X10e3 (0-0.7); EOSINOPHIL% 2.4 % (0.0-7.0); HEMATOCRIT 24.8 % (35.0-45.0); HEMOGLOBIN 8.2 gm/dL (12.0-16.0); MEAN CELL VOLUME 86.1 FL (83-96); MEAN CORPUSCULAR HEMOGLOBIN 28.5 PG (28-34); MEAN CORPUSCULAR HGB CONC 33.1 g/dL (30-36); MEAN PLATELET VOLUME 7.6 FL (6.5-11.5); MONOCYTE# 0.7 X10e3 (0-1.0); MONOCYTE% 7.6 % (3.0-12.0); NEUTROPHIL# 5.7 X10e3 (1.5-7.1); NEUTROPHIL% 66.7 % (40-75); PLATELET COUNT 269 X10e3 (140-420); RED BLOOD COUNT 2.88 X10e (3.90-5.30); RED CELL DISTRIBUTION WIDTH 17.3 % (11.0-15.5); WHITE BLOOD COUNT 8.6 X10e3 (4.0-10.5)
[2016-06-21 06:24] LABS: DIFF IND NO
[2016-06-21 06:53] LABS: ALBUMIN SERUM 1.6 g/dL (3.5-5.0); BILIRUBIN,TOTAL 2.7 mg/dL (0.2-2.0); CALCIUM SERUM 8.4 mg/dL (8.4-10.2); CREATININE SERUM 0.5 mg/dL (0.6-1.4); GLOM FILT RATE Estimated 98.1 mL/min (>60); MAGNESIUM 1.4 mg/dL (1.6-3.0); POTASSIUM 3.7 mmol/L (3.5-5.1); PROTEIN TOTAL SERUM 6.4 g/dL (6.0-8.3)
[2016-06-22 04:33] LABS: ARTERIAL BLD GAS O2 SATURATION 98.4 % (90.0-100.0); ARTERIAL BLOOD GAS CARBOXY HB 0.7 %sat (0.0-9.0); ARTERIAL BLOOD GAS HCO3 23.7 mmol/L; ARTERIAL BLOOD GAS MET HB 0.9 %sat (0.0-2.0); ARTERIAL BLOOD GAS PCO2 34.9 mmHg (35.0-45.0); ARTERIAL BLOOD GAS pH 7.439 (7.350-7.450)
[2016-06-22 04:53] LABS: ARTERIAL BLOOD GAS ALLEN TEST NORMAL; ARTERIAL BLOOD GAS ART SITE LEFT RADIAL; ARTERIAL BLOOD GAS DELIVERY VENT; ARTERIAL BLOOD GAS VENT MODE AC; ARTERIAL DRAW? YES
[2016-06-22 05:50] LABS: BASOPHIL% 0.4 % (0-2.5); EOSINOPHIL# 0.2 X10e3 (0-0.7); EOSINOPHIL% 2.2 % (0.0-7.0); HEMATOCRIT 25.2 % (35.0-45.0); HEMOGLOBIN 8.2 gm/dL (12.0-16.0); LYMPHOCYTE% 21.4 % (17.0-45.0); MEAN CELL VOLUME 87.2 FL (83-96); MEAN CORPUSCULAR HEMOGLOBIN 28.6 PG (28-34); MEAN CORPUSCULAR HGB CONC 32.8 g/dL (30-36); MEAN PLATELET VOLUME 7.7 FL (6.5-11.5); MONOCYTE# 0.8 X10e3 (0-1.0); MONOCYTE% 8.1 % (3.0-12.0); NEUTROPHIL# 6.4 X10e3 (1.5-7.1); NEUTROPHIL% 67.9 % (40-75); PLATELET COUNT 284 X10e3 (140-420); RED BLOOD COUNT 2.88 X10e (3.90-5.30); RED CELL DISTRIBUTION WIDTH 17.5 % (11.0-15.5); WHITE BLOOD COUNT 9.4 X10e3 (4.0-10.5)
[2016-06-22 05:53] LABS: DIFF IND NO
[2016-06-22 06:39] LABS: ALBUMIN SERUM 1.6 g/dL (3.5-5.0); BILIRUBIN,TOTAL 2.6 mg/dL (0.2-2.0); CALCIUM SERUM 8.5 mg/dL (8.4-10.2); CREATININE SERUM 0.5 mg/dL (0.6-1.4); GLOM FILT RATE Estimated 98.1 mL/min (>60); MAGNESIUM 1.4 mg/dL (1.6-3.0); PHOSPHOROUS 3.8 mg/dL (2.5-4.6); PREALBUMIN 15.6 mg/dL (17.0-42.0); PROTEIN TOTAL SERUM 5.8 g/dL (6.0-8.3)
[2016-06-23 04:34] LABS: ARTERIAL BLD GAS O2 SATURATION 100.1 % (90.0-100.0); ARTERIAL BLOOD GAS ALLEN TEST NORMAL; ARTERIAL BLOOD GAS ART SITE RIGHT RADIAL; ARTERIAL BLOOD GAS CARBOXY HB 0.6 %sat (0.0-9.0); ARTERIAL BLOOD GAS HCO3 25.3 mmol/L; ARTERIAL BLOOD GAS PCO2 35.8 mmHg (35.0-45.0); ARTERIAL BLOOD GAS pH 7.458 (7.350-7.450); ARTERIAL DRAW? YES
[2016-06-23 04:35] LABS: ARTERIAL BLOOD GAS DELIVERY VENT; ARTERIAL BLOOD GAS VENT MODE AC
[2016-06-23 05:57] LABS: BASOPHIL% 0.5 % (0-2.5); EOSINOPHIL# 0.2 X10e3 (0-0.7); EOSINOPHIL% 2.4 % (0.0-7.0); HEMATOCRIT 24.6 % (35.0-45.0); HEMOGLOBIN 8.3 gm/dL (12.0-16.0); LYMPHOCYTE# 1.4 X10e3 (1.0-3.5); LYMPHOCYTE% 16.9 % (17.0-45.0); MEAN CELL VOLUME 87.2 FL (83-96); MEAN CORPUSCULAR HEMOGLOBIN 29.4 PG (28-34); MEAN CORPUSCULAR HGB CONC 33.7 g/dL (30-36); MEAN PLATELET VOLUME 7.6 FL (6.5-11.5); MONOCYTE# 0.7 X10e3 (0-1.0); MONOCYTE% 8.2 % (3.0-12.0); NEUTROPHIL# 6.1 X10e3 (1.5-7.1); PLATELET COUNT 284 X10e3 (140-420); RED BLOOD COUNT 2.82 X10e (3.90-5.30); RED CELL DISTRIBUTION WIDTH 17.7 % (11.0-15.5); WHITE BLOOD COUNT 8.4 X10e3 (4.0-10.5)
[2016-06-23 06:07] LABS: DIFF IND NO
[2016-06-23 07:09] LABS: BUN/CREATININE RATIO 52.5; CALCIUM SERUM 8.3 mg/dL (8.4-10.2); CREATININE SERUM 0.4 mg/dL (0.6-1.4); GLOM FILT RATE Estimated 105.6 mL/min (>60); MAGNESIUM 1.4 mg/dL (1.6-3.0); PHOSPHOROUS 3.2 mg/dL (2.5-4.6); POTASSIUM 3.9 mmol/L (3.5-5.1)
[2016-06-24 04:28] LABS: ARTERIAL BLD GAS O2 SATURATION 98.7 % (90.0-100.0); ARTERIAL BLOOD GAS CARBOXY HB 0.7 %sat (0.0-9.0); ARTERIAL BLOOD GAS HCO3 24.9 mmol/L; ARTERIAL BLOOD GAS MET HB 0.6 %sat (0.0-2.0); ARTERIAL BLOOD GAS PCO2 36.5 mmHg (35.0-45.0); ARTERIAL BLOOD GAS pH 7.441 (7.350-7.450)
[2016-06-24 04:35] LABS: ARTERIAL BLOOD GAS ALLEN TEST NORMAL; ARTERIAL BLOOD GAS ART SITE LEFT RADIAL; ARTERIAL DRAW? YES
[2016-06-24 04:36] LABS: ARTERIAL BLOOD GAS DELIVERY VENT; ARTERIAL BLOOD GAS VENT MODE A/C
[2016-06-24 05:29] LABS: BASOPHIL% 0.4 % (0-2.5); EOSINOPHIL# 0.3 X10e3 (0-0.7); EOSINOPHIL% 3.4 % (0.0-7.0); HEMATOCRIT 25.7 % (35.0-45.0); HEMOGLOBIN 8.4 gm/dL (12.0-16.0); LYMPHOCYTE# 1.8 X10e3 (1.0-3.5); LYMPHOCYTE% 20.7 % (17.0-45.0); MEAN CELL VOLUME 88.2 FL (83-96); MEAN CORPUSCULAR HEMOGLOBIN 28.7 PG (28-34); MEAN CORPUSCULAR HGB CONC 32.6 g/dL (30-36); MEAN PLATELET VOLUME 7.3 FL (6.5-11.5); MONOCYTE# 0.8 X10e3 (0-1.0); MONOCYTE% 8.7 % (3.0-12.0); NEUTROPHIL# 5.9 X10e3 (1.5-7.1); NEUTROPHIL% 66.8 % (40-75); PLATELET COUNT 337 X10e3 (140-420); RED BLOOD COUNT 2.91 X10e (3.90-5.30); RED CELL DISTRIBUTION WIDTH 17.9 % (11.0-15.5); WHITE BLOOD COUNT 8.8 X10e3 (4.0-10.5)
[2016-06-24 05:52] LABS: DIFF IND NO
[2016-06-24 06:23] LABS: ALBUMIN SERUM 1.6 g/dL (3.5-5.0); BILIRUBIN,TOTAL 2.2 mg/dL (0.2-2.0); CALCIUM SERUM 8.5 mg/dL (8.4-10.2); CREATININE SERUM 0.4 mg/dL (0.6-1.4); GLOM FILT RATE Estimated 105.6 mL/min (>60); MAGNESIUM 1.5 mg/dL (1.6-3.0); PHOSPHOROUS 3.2 mg/dL (2.5-4.6); PREALBUMIN 16.6 mg/dL (17.0-42.0); PROTEIN TOTAL SERUM 6.1 g/dL (6.0-8.3)
[2016-06-25 05:27] LABS: HEMOGLOBIN 8.7 gm/dL (12.0-16.0); MEAN CELL VOLUME 86.9 FL (83-96); MEAN CORPUSCULAR HEMOGLOBIN 29.1 PG (28-34); MEAN CORPUSCULAR HGB CONC 33.4 g/dL (30-36); RED BLOOD COUNT 2.99 X10e (3.90-5.30); RED CELL DISTRIBUTION WIDTH 18.4 % (11.0-15.5)
[2016-06-25 06:44] LABS: CALCIUM SERUM 9.2 mg/dL (8.4-10.2); CREATININE SERUM 0.5 mg/dL (0.6-1.4); GLOM FILT RATE Estimated 98.1 mL/min (>60); MAGNESIUM 1.5 mg/dL (1.6-3.0)
[2016-06-26 06:58] LABS: BUN/CREATININE RATIO 57.5; CALCIUM SERUM 8.8 mg/dL (8.4-10.2); CREATININE SERUM 0.4 mg/dL (0.6-1.4); GLOM FILT RATE Estimated 105.6 mL/min (>60); MAGNESIUM 1.5 mg/dL (1.6-3.0); POTASSIUM 3.5 mmol/L (3.5-5.1)
[2016-06-27 05:53] LABS: BASOPHIL% 0.5 % (0-2.5); EOSINOPHIL# 0.6 X10e3 (0-0.7); EOSINOPHIL% 7.9 % (0.0-7.0); HEMOGLOBIN 7.6 gm/dL (12.0-16.0); LYMPHOCYTE# 1.2 X10e3 (1.0-3.5); LYMPHOCYTE% 17.8 % (17.0-45.0); MEAN CELL VOLUME 87.3 FL (83-96); MEAN CORPUSCULAR HEMOGLOBIN 28.9 PG (28-34); MEAN CORPUSCULAR HGB CONC 33.1 g/dL (30-36); MONOCYTE# 0.7 X10e3 (0-1.0); MONOCYTE% 10.5 % (3.0-12.0); NEUTROPHIL# 4.4 X10e3 (1.5-7.1); NEUTROPHIL% 63.3 % (40-75); PLATELET COUNT 301 X10e3 (140-420); RED BLOOD COUNT 2.64 X10e (3.90-5.30); RED CELL DISTRIBUTION WIDTH 19.9 % (11.0-15.5)
[2016-06-27 06:02] LABS: DIFF IND YES
[2016-06-27 06:11] LABS: ALBUMIN SERUM 2.1 g/dL (3.5-5.0); BILIRUBIN,TOTAL 1.8 mg/dL (0.2-2.0); BUN/CREATININE RATIO 57.5; CALCIUM SERUM 8.9 mg/dL (8.4-10.2); CREATININE SERUM 0.4 mg/dL (0.6-1.4); GLOM FILT RATE Estimated 105.6 mL/min (>60); MAGNESIUM 1.6 mg/dL (1.6-3.0); POTASSIUM 3.8 mmol/L (3.5-5.1); PROTEIN TOTAL SERUM 6.3 g/dL (6.0-8.3)
[2016-06-27 07:05] LABS: PLATELET ESTIMATE NORMAL (NORMAL)
[2016-06-27 07:06] LABS: ANISOCYTOSIS MOD; POIKILOCYTOSIS SL; RBC NORMAL YES
[2016-06-27 07:07] LABS: HYPOCHROMIA SL; POLYCHROMASIA SL
[2016-06-27 08:51] LABS: ARTERIAL BLD GAS O2 SATURATION 98.7 % (90.0-100.0); ARTERIAL BLOOD GAS ART SITE RIGHT BRACHIAL; ARTERIAL BLOOD GAS CARBOXY HB 0.6 %sat (0.0-9.0); ARTERIAL BLOOD GAS DELIVERY VENT; ARTERIAL BLOOD GAS HCO3 26.5 mmol/L; ARTERIAL BLOOD GAS MET HB 0.3 %sat (0.0-2.0); ARTERIAL BLOOD GAS PCO2 36.5 mmHg (35.0-45.0); ARTERIAL BLOOD GAS VENT MODE CPAP; ARTERIAL DRAW? YES
[2016-06-28 03:35] LABS: URINE APPEARANCE CLOUDY; URINE BLOOD 2+ (NEG); URINE COLOR DK YELLOW; URINE GLUCOSE NEG (NEG); URINE KETONE NEG (NEG); URINE LEUKOCYTE ESTERASE NEG (NEG); URINE NITRATE NEG (NEG); URINE PH 6.5 (5-8); URINE PROTEIN 2+ (NEG); URINE SPECIFIC GRAVITY 1.023 (1.003-1.035); URINE UROBILINOGEN 0.2 MG/DL (NEG)
[2016-06-28 03:37] LABS: URINE BACTERIA AUWI NEG (NEGATIVE); URINE SQUAMOUS EPITHELIAL CELL MOD /[HPF]
[2016-06-28 03:41] LABS: URINE BILIRUBIN POS (NEG)
[2016-06-28 03:54] LABS: URINE CRYSTALS CALCIUM OXALATE /[HPF]; URINE MUCUS PRESENT
[2016-06-28 04:02] LABS: ARTERIAL BLD GAS O2 SATURATION 97.9 % (90.0-100.0); ARTERIAL BLOOD GAS HCO3 27.1 mmol/L; ARTERIAL BLOOD GAS MET HB 0.9 %sat (0.0-2.0); ARTERIAL BLOOD GAS PCO2 35.1 mmHg (35.0-45.0); ARTERIAL BLOOD GAS pH 7.496 (7.350-7.450)
[2016-06-28 04:07] LABS: ARTERIAL BLOOD GAS ALLEN TEST NORMAL; ARTERIAL BLOOD GAS ART SITE LEFT RADIAL; ARTERIAL BLOOD GAS DELIVERY VENT; ARTERIAL BLOOD GAS VENT MODE AC; ARTERIAL DRAW? YES
[2016-06-29 05:44] LABS: BASOPHIL% 0.4 % (0-2.5); DIFF IND NO; EOSINOPHIL% 9.7 % (0.0-7.0); HEMOGLOBIN 8.6 gm/dL (12.0-16.0); LYMPHOCYTE# 1.7 X10e3 (1.0-3.5); LYMPHOCYTE% 16.4 % (17.0-45.0); MEAN CELL VOLUME 88.3 FL (83-96); MEAN CORPUSCULAR HEMOGLOBIN 29.1 PG (28-34); MONOCYTE# 0.8 X10e3 (0-1.0); MONOCYTE% 7.9 % (3.0-12.0); NEUTROPHIL# 6.7 X10e3 (1.5-7.1); NEUTROPHIL% 65.6 % (40-75); PLATELET COUNT 336 X10e3 (140-420); RED BLOOD COUNT 2.94 X10e (3.90-5.30); RED CELL DISTRIBUTION WIDTH 20.2 % (11.0-15.5); WHITE BLOOD COUNT 10.2 X10e3 (4.0-10.5)
[2016-06-29 06:45] LABS: CALCIUM SERUM 9.4 mg/dL (8.4-10.2); CREATININE SERUM 0.5 mg/dL (0.6-1.4); GLOM FILT RATE Estimated 98.1 mL/min (>60); POTASSIUM 3.9 mmol/L (3.5-5.1)
[2016-06-30 04:06] LABS: ARTERIAL BLD GAS O2 SATURATION 98.3 % (90.0-100.0); ARTERIAL BLOOD GAS CARBOXY HB 0.6 %sat (0.0-9.0); ARTERIAL BLOOD GAS HCO3 30.2 mmol/L; ARTERIAL BLOOD GAS MET HB 0.7 %sat (0.0-2.0); ARTERIAL BLOOD GAS PCO2 41.2 mmHg (35.0-45.0); ARTERIAL BLOOD GAS pH 7.473 (7.350-7.450)
[2016-06-30 04:12] LABS: ARTERIAL BLOOD GAS ALLEN TEST NORMAL; ARTERIAL BLOOD GAS ART SITE RIGHT RADIAL; ARTERIAL BLOOD GAS DELIVERY VENT; ARTERIAL BLOOD GAS VENT MODE A/C; ARTERIAL DRAW? YES
[2016-06-30 07:54] LABS: BUN/CREATININE RATIO 41.66; CREATININE SERUM 0.6 mg/dL (0.6-1.4); GLOM FILT RATE Estimated 92.4 mL/min (>60); MAGNESIUM 1.7 mg/dL (1.6-3.0); POTASSIUM 4.3 mmol/L (3.5-5.1)
[2016-06-30 13:39] LABS: ARTERIAL BLOOD GAS CARBOXY HB 0.8 %sat (0.0-9.0); ARTERIAL BLOOD GAS HCO3 28.9 mmol/L; ARTERIAL BLOOD GAS MET HB 0.8 %sat (0.0-2.0); ARTERIAL BLOOD GAS PCO2 35.3 mmHg (35.0-45.0); ARTERIAL BLOOD GAS PO2 83.4 mmHg (80.0-100); ARTERIAL BLOOD GAS pH 7.522 (7.350-7.450)
[2016-06-30 13:41] LABS: ARTERIAL BLOOD GAS ALLEN TEST NORMAL; ARTERIAL BLOOD GAS ART SITE RIGHT RADIAL; ARTERIAL BLOOD GAS DELIVERY VENT; ARTERIAL BLOOD GAS VENT MODE CPAP; ARTERIAL DRAW? YES
[2016-07-01 04:07] LABS: ARTERIAL BLD GAS O2 SATURATION 97.9 % (90.0-100.0); ARTERIAL BLOOD GAS CARBOXY HB 1.1 %sat (0.0-9.0); ARTERIAL BLOOD GAS HCO3 29.5 mmol/L; ARTERIAL BLOOD GAS MET HB 1.1 %sat (0.0-2.0); ARTERIAL BLOOD GAS PCO2 38.3 mmHg (35.0-45.0); ARTERIAL BLOOD GAS pH 7.496 (7.350-7.450)
[2016-07-01 04:27] LABS: ARTERIAL BLOOD GAS ALLEN TEST NORMAL; ARTERIAL BLOOD GAS ART SITE RIGHT RADIAL; ARTERIAL DRAW? YES
[2016-07-01 04:28] LABS: ARTERIAL BLOOD GAS DELIVERY VENT; ARTERIAL BLOOD GAS VENT MODE A/C
[2016-07-01 05:19] LABS: BUN/CREATININE RATIO 36.66; CALCIUM SERUM 10.2 mg/dL (8.4-10.2); CREATININE SERUM 0.6 mg/dL (0.6-1.4); GLOM FILT RATE Estimated 92.4 mL/min (>60)
[2016-07-02 05:27] LABS: ARTERIAL BLD GAS O2 SATURATION 99.8 % (90.0-100.0); ARTERIAL BLOOD GAS CARBOXY HB 0.8 %sat (0.0-9.0); ARTERIAL BLOOD GAS HCO3 29.9 mmol/L; ARTERIAL BLOOD GAS PCO2 39.8 mmHg (35.0-45.0); ARTERIAL BLOOD GAS pH 7.484 (7.350-7.450)
[2016-07-02 05:28] LABS: ARTERIAL BLOOD GAS ALLEN TEST NORMAL; ARTERIAL BLOOD GAS ART SITE LEFT RADIAL; ARTERIAL BLOOD GAS DELIVERY VENT; ARTERIAL BLOOD GAS MET HB 0.7 %sat (0.0-2.0); ARTERIAL BLOOD GAS VENT MODE AC; ARTERIAL DRAW? YES
[2016-07-02 07:02] LABS: BUN/CREATININE RATIO 56.66; CALCIUM SERUM 10.3 mg/dL (8.4-10.2); CREATININE SERUM 0.6 mg/dL (0.6-1.4); GLOM FILT RATE Estimated 92.4 mL/min (>60); MAGNESIUM 1.8 mg/dL (1.6-3.0); POTASSIUM 3.9 mmol/L (3.5-5.1)
== END 2016-07-02 15:30 | DRG 3 ==
LOC: CSUR 11:48 → CPACUOF 12:53 → C4C 20:22 → CICCU3 05-27 15:15
PROVIDERS: Family Medicine; Internal Medicine; Internal Medicine Infectious Disease; Internal Medicine Nephrology; Internal Medicine Pulmonary Disease; Obstetrics & Gynecology; Psychiatry & Neurology Psychiatry; Radiology Diagnostic Radiology; Specialist; Surgery
PROC: 0DN84ZZ Release Small Intestine, Percutaneous Endoscopic Approach (ICD-10-PCS; 2016-05-24)
PROC: 0WUF4JZ Supplement Abdominal Wall with Synthetic Substitute, Percutaneous Endoscopic Approach (ICD-10-PCS; principal; 2016-05-24 14:00)
PROC: 5A1955Z Respiratory Ventilation, Greater than 96 Consecutive Hours (ICD-10-PCS; 2016-05-28)
PROC: 0D1B0Z4 Bypass Ileum to Cutaneous, Open Approach (ICD-10-PCS; 2016-05-28)
PROC: 0WPF0JZ Removal of Synthetic Substitute from Abdominal Wall, Open Approach (ICD-10-PCS; 2016-05-28)
PROC: 0DTB0ZZ Resection of Ileum, Open Approach (ICD-10-PCS; 2016-05-28)
PROC: 0DH60UZ Insertion of Feeding Device into Stomach, Open Approach (ICD-10-PCS; 2016-05-28)
PROC: 30233N1 Transfusion of Nonautologous Red Blood Cells into Peripheral Vein, Percutaneous Approach (ICD-10-PCS; 2016-05-28)
PROC: 05HN33Z Insertion of Infusion Device into Left Internal Jugular Vein, Percutaneous Approach (ICD-10-PCS; 2016-05-29)
PROC: B544ZZA Ultrasonography of Left Jugular Veins, Guidance (ICD-10-PCS; 2016-05-29)
PROC: 02HV33Z Insertion of Infusion Device into Superior Vena Cava, Percutaneous Approach (ICD-10-PCS; 2016-06-09)
PROC: 4A02X4A Measurement of Cardiac Electrical Activity, Guidance, External Approach (ICD-10-PCS; 2016-06-09)
PROC: 3E1M38X Irrigation of Peritoneal Cavity using Irrigating Substance, Percutaneous Approach, Diagnostic (ICD-10-PCS; 2016-06-11)
PROC: 0B110F4 Bypass Trachea to Cutaneous with Tracheostomy Device, Open Approach (ICD-10-PCS; 2016-06-11 11:30)
PROC: 05H633Z Insertion of Infusion Device into Left Subclavian Vein, Percutaneous Approach (ICD-10-PCS; 2016-06-16)
PROC: 0D9W30Z Drainage of Peritoneum with Drainage Device, Percutaneous Approach (ICD-10-PCS; 2016-06-17)
PROC: 5A1D00Z (ICD-10-PCS; 2016-06-27)
DX: K43.0 Incisional hernia with obstruction, without gangrene (principal); A41.89 Other specified sepsis; N17.9 Acute kidney failure, unspecified; K65.8 Other peritonitis; J18.9 Pneumonia, unspecified organism; G92 Toxic encephalopathy; J95.821 Acute postprocedural respiratory failure; E87.2 Acidosis; E44.0 Moderate protein-calorie malnutrition; T81.12XA Postprocedural septic shock, initial encounter; E87.1 Hypo-osmolality and hyponatremia; R17 Unspecified jaundice; K91.3 Postprocedural intestinal obstruction; T81.4XXA Infection following a procedure, initial encounter; T85.79XA Infection and inflammatory reaction due to other internal prosthetic devices, implants and grafts, initial encounter; J98.11 Atelectasis; Z93.3 Colostomy status; K21.9 Gastro-esophageal reflux disease without esophagitis; I10 Essential (primary) hypertension; E10.9 Type 1 diabetes mellitus without complications; Z79.4 Long term (current) use of insulin; E78.00 Pure hypercholesterolemia, unspecified; Z82.49 Family history of ischemic heart disease and other diseases of the circulatory system; E78.5 Hyperlipidemia, unspecified; E87.5 Hyperkalemia; D64.9 Anemia, unspecified; R06.82 Tachypnea, not elsewhere classified; E80.6 Other disorders of bilirubin metabolism; Y73.8 Miscellaneous gastroenterology and urology devices associated with adverse incidents, not elsewhere classified; Y83.2 Surgical operation with anastomosis, bypass or graft as the cause of abnormal reaction of the patient, or of later complication, without mention of misadventure at the time of the procedure; E86.1 Hypovolemia; E87.6 Hypokalemia; B96.1 Klebsiella pneumoniae [K. pneumoniae] as the cause of diseases classified elsewhere; E83.42 Hypomagnesemia; Z68.24 Body mass index [BMI] 24.0-24.9, adult
CPT/HCPCS: 36600; 70450; 70551; 71010; 71020; 71250; 74000; 74176; 74250; 76080; 76705; 76937; 77001; 77012; 80048; 80053; 80074; 80170; 80200; 80202; 81003; 82150; 82248; 82308; 82330; 82570; 82803; 82947; 83605; 83690; 83735; 83930; 83935; 84100; 84132; 84134; 84300; 84478; 85014; 85018; 85025; 85027; 85610; 85730; 86850; 86900; 86901; 86923; 87040; 87070; 87075; 87077; 87086; 87186; 87205; 87493; 87804; 88307; 89190; 93005; 93970; 94002; 94003; 94010; 94760; 94761; 97110; 97163; C1752; C1787; G8978-GP; G8979-GP; J0360; J0610; J0690; J1170; J1450; J1580; J1644; J1650; J1815; J1940; J1956; J2060; J2175; J2250; J2270; J2370; J2543; J2550; J2997; J3010; J3243; J3260; J3370; J3475; J3480; J3490; P9016; P9047; Q9967